=== PATIENT | female | born 1965 | race Caucasian/White ===

== ENCOUNTER 2017-08-31 11:00 | Emergency (ER) | payer OTHER ==
[2017-08-31 11:19] VITALS: BP 165/110; PULSE 73; TEMP 98.4; BMI 33.6
[2017-08-31] MEDS ORDERED: SULFAMETHOXAZOLE/TRIMETHOPRIM 800MG/160MG D.S. TABLET ONE (12:13)
[2017-08-31] MEDS ORDERED: SULFAMETHOXAZOLE/TRIMETHOPRIM 800MG/160MG D.S. TABLET PO ONE (12:18)
--- NOTE | 2017-08-31 12:38 | PDOC ---
History of Present Illness - General Chief Complaint: Abscess Boil Stated Complaint: ABSCESS BOIL Time Seen by Provider: 08/31/17 11:54 History Source: Patient Exam Limitations: No Limitations - History of Present Illness Initial Comments: 08/31/17 12:19 Onset of abscess 2 days ago which progressively worsened. Patient now with exquisitely painful lesion under her left axilla Timing/Duration: reports: getting worse Severity: Yes: moderate, severe Location: reports: other (axilla) Associated Symptoms: reports: denies symptoms Past History - Travel Traveled outside of the country in the last 30 days: No Close contact w/someone who was outside of country & ill: No - Past Medical History Allergies/Adverse Reactions: Allergies Allergy/AdvReac Type Severity Reaction Status Date / Time No Known Allergies Allergy Verified 08/31/17 11:14 Home Medications: Ambulatory Orders Duloxetine [Cymbalta] 30 mg PO HS 01/27/13 Duloxetine [Cymbalta] 60 mg PO DAILY 01/27/13 Oxycodone HCl/Acetaminophen [Percocet 5-325 mg Tablet -] 1 - 2 tab PO Q4H PRN # 7 tablet MDD 4 08/31/17 Sulfamethoxazole/Trimethoprim [Bactrim *Ds*] 1 each PO BID #14 tablet 08/31/17 COPD: No HTN: Yes Psychiatric Problems: Yes (DEPRESSION) - Surgical History Neurologic Surgery: Yes (X5 BACK SX) - Reproductive History (#): 5 Para: 3 Spontaneous : 1 - Suicide/Smoking/Psychosocial Hx Smoking Status: No Smoking History: Never smoked Number of Cigarettes Smoked Daily: 0 Information on smoking cessation initiated: No Hx Alcohol Use: No Drug/Substance Use Hx: No Substance Use Type: None Review of Systems - Review of Systems Able to Perform ROS?: Yes Is the patient limited Yi proficient: Yes Constitutional: Yes: Symptoms Reported, See HPI, Malaise Respiratory: No: Symptoms reported Integumentary: Yes: Symptoms Reported, See HPI, Erythema Neurological: No: Symptoms reported All Other Systems: Reviewed and Negative *Physical Exam - Vital Signs Last Vital Signs Temp Pulse Resp BP Pulse Ox 98.4 F 73 18 165/110 100 08/31/17 11:15 08/31/17 11:15 08/31/17 11:15 08/31/17 11:15 08/31/17 11:15 - Physical Exam General Appearance: Yes: Nourished, Appropriately Dressed, Apparent Distress, Moderate Distress HEENT: positive: JCARLOS, Normal ENT Inspection, TMs Normal, Pharynx Normal Neck: positive: Tender, Supple, Lymphadenopathy (R), Lymphadenopathy (L) Respiratory/Chest: positive: Lungs Clear, Normal Breath Sounds Gastrointestinal/Abdominal: positive: Normal Bowel Sounds, Soft. negative: Tender Extremity: positive: Normal Capillary Refill Integumentary: positive: Normal Color, Swelling. negative: Ecchymosis Neurologic: positive: manager labor delivery II-XII NML intact, Fully Oriented, Alert, Normal Mood/ Affect, Normal Response, Motor Strength 01/08 Procedures - Incision and Drainage I&D Site: Left: Axilla Betadine cleansed: Yes Anesthesia: 1% Lidocaine Blade Size: 11 Iodinated Packin/4 in Complications: none Progress Note - Progress Note Progress Note: Axillary abscess, incised and drained, started on Bactrim, culture is been sent and given #7 Percocet tablets for pain relief *DC/Admit/Observation/Transfer Diagnosis at time of Disposition: Abscess - Discharge Dispostion Disposition: HOME Condition at time of disposition: Stable Admit: No - Referrals Referrals: Kevon Leach [Primary Care Provider] - - Patient Instructions Printed Discharge Instructions: DI for Incision and Drainage of a Skin Abscess Additional Instructions: Rest, keep area elevated. Avoid strenuous activity or exercise until wound is healed Use hot soaks to area to bring more blood to the surface and encourage drainage May change dressings as needed to keep clean - trying to avoid removal of packing for 2 days. If packing needs to be changed, return to emergency department or with your followup physician for wound care and evaluation and repacking as needed If packing needs to be removed, then in 2 days, while in the shower remove dressing and quickly pull the packing taken out. Allow water from shower to wash area thoroughly for 2-3 minutes, and pat dry upon exit of shower and replace dressing. Change his dressing daily until the wound is completely healed. May use Tylenol or Motrin for mild pain relief Use stronger medications as directed and prescribed Continue all medications as prescribed Followup with private physician in 2-3 days for wound check Return to emergency Department for worsening swelling, pain, redness, fevers as needed - Post Discharge Activity Forms/Work/School Notes: Back to Work
--- NOTE | 2017-09-02 09:08 | PDOC ---
Patient Follow-up (Call Back) - Post ED Follow - Up Chief Complaint: Abscess Boil Condition at time of discharge: Stable Disposition at time of original discharge: HOME Reason for Call Back: Abnwl. Microbiology (Presumptive MRSA on wound culture. Pt. appropriately on bactrim.)
== END 2017-08-31 13:23 | disposition home or self-care (01) ==
LOC: JERFT 11:00
PROC: 0X950ZZ Drainage of Left Axilla, Open Approach (ICD-10-PCS; principal; 2017-08-31)
DX: L02.412 Cutaneous abscess of left axilla (principal)
CPT/HCPCS: 87070; 87186; 87205; 99281-25

== ENCOUNTER 2018-01-23 20:59 | Emergency (ER) | payer OTHER ==
[2018-01-23 21:03] VITALS: TEMP 97.6; BMI 33.7
--- NOTE | 2018-01-23 23:21 | PDOC ---
History of Present Illness - General Chief Complaint: Blood Pressure Problem Stated Complaint: HIGH BP/HEADACHE Time Seen by Provider: 01/23/18 23:20 Past History - Past Medical History Allergies/Adverse Reactions: Allergies Allergy/AdvReac Type Severity Reaction Status Date / Time No Known Allergies Allergy Verified 01/23/18 21:03 Home Medications: Ambulatory Orders Duloxetine [Cymbalta] 30 mg PO HS 01/27/13 Duloxetine [Cymbalta] 60 mg PO DAILY 01/27/13 Oxycodone HCl/Acetaminophen [Percocet 5-325 mg Tablet -] 1 - 2 tab PO Q4H PRN # 7 tablet MDD 4 08/31/17 Sulfamethoxazole/Trimethoprim [Bactrim *Ds*] 1 each PO BID #14 tablet 08/31/17 COPD: No HTN: Yes Psychiatric Problems: Yes (DEPRESSION) - Surgical History Neurologic Surgery: Yes (X5 BACK SX) - Reproductive History (#): 5 Para: 3 Spontaneous : 1 - Suicide/Smoking/Psychosocial Hx Smoking Status: No Smoking History: Never smoked Number of Cigarettes Smoked Daily: 0 Hx Alcohol Use: No Drug/Substance Use Hx: No Substance Use Type: None *Physical Exam - Vital Signs Last Vital Signs Temp Pulse Resp BP Pulse Ox 97.6 F 60 18 158/120 100 01/23/18 21:00 01/23/18 21:00 01/23/18 21:00 01/23/18 21:00 01/23/18 21:00 ED Treatment Course - LABORATORY CBC & Chemistry Diagram: 01/24/18 01:01 01/24/18 01:01 Medical Decision Making - Medical Decision Making 01/24/18 02:57 Ms. Blankenship is a 52 yo female w/ pmh as described who presents for evaluation of high blood pressure with headache. CBC/CMP/EKG/troponin ordered for evaluation and to r/o end organ damage. Labs grossly wnl as below. Patient reporting relief from symptoms with tylenol, norvasc, and reglan. Repeat BP decreased from 195/127 to 161 / 79. Discharging patient with instructions to f/ u with resident clinic for further bp medication / pcp establishment. Patient verbalized agreement and understanding and will comply. Laboratory Results - last 24 hr 01/24/18 01/24/18 01:01 01:01 WBC 6.3 RBC 4.88 Hgb 14.8 Hct 44.7 MCV 91.7 MCH 30.3 MCHC 33.0 RDW 13.7 Plt Count 200 D MPV 8.0 Neutrophils % 44.4 D Lymphocytes % 41.2 H D Monocytes % 7.9 Eosinophils % 5.6 H D Basophils % 0.9 Sodium 142 Potassium 4.0 Chloride 109 H Carbon Dioxide 27 Anion Gap 6 L BUN 11 Creatinine 1.0 Creat Clearance w eGFR 58.45 Random Glucose 85 Calcium 8.7 Total Bilirubin 0.4 AST 25 ALT 31 Alkaline Phosphatase 97 Creatine Kinase 132 Troponin I < 0.02 Total Protein 7.3 Albumin 3.7 01/24/18 02:59 01/24/18 02:59 *DC/Admit/Observation/Transfer Diagnosis at time of Disposition: Hypertension Qualifiers: Hypertension type: unspecified Qualified Code(s): I10 - Essential (primary) hypertension Headache Qualifiers: Headache type: unspecified Headache chronicity pattern: unspecified pattern Intractability: not intractable Qualified Code(s): R51 - Headache - Discharge Dispostion Disposition: HOME - Referrals Referrals: Iain Ríos MD [Staff Physician] - - Patient Instructions Printed Discharge Instructions: DI for High Blood Pressure Additional Instructions: Please follow-up with provided clinic at listed information today to establish care and for additional blood pressure medication for preventive care. Return to ER if any increased pain, fever, chills, or other concerning symptoms. - Post Discharge Activity
[2018-01-24] MEDS ORDERED: ACETAMINOPHEN 325 MG TABLET (FP) ONE (00:20)
[2018-01-24] MEDS ORDERED: ACETAMINOPHEN 1000 MG/100 ML VIAL (NON FORMULARY) IVPB ONE (01:10)
[2018-01-24] MEDS ORDERED: METOCLOPRAMIDE HCL INJECTION 10 MG/2 ML VIAL IVPB ONE (01:10)
[2018-01-24] MEDS ORDERED: amLODIPine BESYLATE 10 MG TABLET (FP) PO ONE (01:10)
[2018-01-24 01:20] LABS: BASO % 0.9 % (0-2.0); EOS % 5.6 % (0-4.5); HEMATOCRIT 44.7 % (32.4-45.2); HEMOGLOBIN 14.8 GM/dL (10.7-15.3); LYMPH % 41.2 % (8-40); MCH 30.3 pg (25.7-33.7); MEAN CELL VOLUME 91.7 fl (80-96); MONO % 7.9 % (3.8-10.2); NEUT % 44.4 % (42.8-82.8); PLATELET COUNT 200 K/MM3 (134-434); RBC 4.88 M/mm3 (3.60-5.2); RDW 13.7 % (11.6-15.6); WHITE BLOOD COUNT 6.3 K/mm3 (4.0-10.0)
[2018-01-24] MEDS ORDERED: amLODIPine BESYLATE 5 MG TABLET (FP) ONE (01:25)
[2018-01-24] MEDS ORDERED: METOCLOPRAMIDE HCL INJECTION 10 MG/2 ML VIAL ONE (01:25)
[2018-01-24] MEDS ORDERED: ACETAMINOPHEN INJECTION 100 ML IVPB ONE (01:26)
[2018-01-24 01:46] LABS: ALBUMIN 3.7 g/dl (3.4-5.0); ANION GAP 6 (8-16); BILIRUBIN,TOTAL 0.4 mg/dL (0.2-1.0); BLOOD UREA NITROGEN 11 mg/dL (7-18); CALCIUM 8.7 mg/dL (8.5-10.1); CHLORIDE 109 mmol/L (98-107); CO2 27 mmol/L (21-32); GLUCOSE,RANDOM 85 mg/dL (74-106); SGOT/AST 25 U/L (15-37); SGPT/ALT 31 U/L (12-78); SODIUM 142 mmol/L (136-145); TOT PROT 7.3 g/dl (6.4-8.2)
[2018-01-24 01:49] LABS: ALK PHOS 97 U/L (45-117)
[2018-01-24 02:58] VITALS: BP 161/79; PULSE 58
--- NOTE | 2018-01-24 03:18 | PDOC ---
Attending Attestation - Resident Resident Name: Anson Mckeon - ED Attending Attestation I have performed the following: I have examined & evaluated the patient, The case was reviewed & discussed with the resident, I agree w/resident's findings & plan, Exceptions are as noted - HPI HPI: 01/24/18 03:27 The patient is a 52 year old female, with a significant past medical history of hypertension (noncompliant with medication), who presents to the emergency department with global headache and associated elevated blood pressure. The patient reports her PCP referred her to another doctor who placed her on an unknown blood pressure medication which she believes was not working for her thus, she stopped taking. She reports not taking her medication for the past two days and says that she has similar headaches when her blood pressure is elevated. She describes her headache as gradual onset, wraps around her head. She denies recent fevers, chills, or dizziness. Denies focal weakness or numbness. She denies recent nausea, vomit, diarrhea or constipation. She denies recent dysuria, frequency, urgency or hematuria. She denies recent chest pain or shortness of breath. Allergies: NKA Past surgical history: None reported. Primary Care Physician: Dr. Leach - Physicial Exam PE: 01/24/18 03:27 GENERAL: Awake, alert, and fully oriented, in no acute distress HEAD: No signs of trauma EYES: PERRLA, EOMI, sclera anicteric, conjunctiva clear ENT: Auricles normal inspection, hearing grossly normal, nares patent, oropharynx clear without exudates. Moist mucosa NECK: Normal ROM, supple, no lymphadenopathy, JVD, or masses LUNGS: Breath sounds equal, clear to auscultation bilaterally. No wheezes, and no crackles HEART: Regular rate and rhythm, normal S1 and S2, no murmurs, rubs or gallops ABDOMEN: Soft, nontender, normoactive bowel sounds. No guarding, no rebound. No masses EXTREMITIES: Normal range of motion, no edema. No clubbing or cyanosis. No cords, erythema, or tenderness NEUROLOGICAL: Normal speech, cranial nerves intact, negative pronator drift, 5/ 5 strength in all 4 extremities, normal sensation to light touch in all 4 extremities, normal cerebellar exam, normal gait, normal reflexes and tone SKIN: Warm, Dry, normal turgor, no rashes or lesions noted. - Medical Decision Making 01/24/18 03:24 52-year-old female with a history of hypertension presents emergency Department with elevated blood pressure and headache after running out of her blood pressure medications. Blood pressure initially elevated with diastolic over 100. Exam completely normal, patient is neurologically intact. Patient reports that she often gets similar headaches when her blood pressure is high, reports there is no change in the severity of this headache. Labs within normal limits. Patient's blood pressure down to 160s/79 with amlodipine 10 mg. Headache is completely resolved. Discussed with patient the importance of following up today at the resident follow-up clinic. Advised the patient to call the provided referral number in the morning for a follow-up appointment today, the patient expresses understanding. Patient feels much better, is clinically stable and requests to go home. I discussed the physical exam findings, ancillary test results and final diagnoses with the patient. I answered all of the patient's questions. The patient was satisfied with the care received and felt comfortable with the discharge plan and treatment plan. The patient will call their primary care physician within 24 hours to arrange follow-up and will return to the Emergency Department with any new, persistent or worsening symptoms. Heart Score/ECG Review #1 01/24/18 03:32 Twelve-lead EKG was performed and reviewed by me. Sinus bradycardia, rate 56. Normal axis. No ST elevations. T wave inversions in leads 3, aVF, and V3-V6. When compared to EKG from June 2009, flipped T waves in V3-V6 are new. Repeat EKG stable.
--- NOTE | 2018-01-24 23:43 | EKG ---
Test Reason : Blood Pressure : / mmHG Vent. Rate : 056 BPM Atrial Rate : 056 BPM P-R Int : 160 ms QRS Dur : 074 ms QT Int : 424 ms P-R-T Axes : 022 -09 -05 degrees QTc Int : 409 ms SINUS BRADYCARDIA NONSPECIFIC T WAVE ABNORMALITY ABNORMAL ECG WHEN COMPARED WITH ECG OF 14-JUN-2009 16:20, T WAVE VARIATION Confirmed by EDELMIRA LOPEZ MD ([id number]) on 01/24/2018 11:43:04 PM Referred By: Confirmed By:EDELMIRA LOPEZ MD
== END 2018-01-24 03:13 | disposition home or self-care (01) ==
LOC: JER 20:59
PROC: 3E033GC Introduction of Other Therapeutic Substance into Peripheral Vein, Percutaneous Approach (ICD-10-PCS; principal; 2018-01-23)
PROC: 3E033NZ Introduction of Analgesics, Hypnotics, Sedatives into Peripheral Vein, Percutaneous Approach (ICD-10-PCS; 2018-01-23)
DX: I10 Essential (primary) hypertension (principal); F32.9 Major depressive disorder, single episode, unspecified; Z91.14 Patient's other noncompliance with medication regimen
CPT/HCPCS: 36415; 80053; 82550; 84484; 85025; 93005; 93010; 96374; 96375; 99281-25; J0131

== ENCOUNTER 2018-12-11 11:47 | Inpatient (IN) | payer OTHER ==
[2018-12-11 11:56] VITALS: BMI 33.5
[2018-12-11] MEDS ORDERED: SODIUM CHLORIDE 1,000 ML IV STA (12:23)
[2018-12-11] MEDS ORDERED: ONDANSETRON 4 MG/2 ML VIAL IVPUSH ONE (12:23)
--- NOTE | 2018-12-11 12:28 | PDOC ---
History of Present Illness - General Chief Complaint: Nausea/Vomiting Stated Complaint: CHEST PAIN Time Seen by Provider: 12/11/18 12:06 History Source: Patient Exam Limitations: No Limitations - History of Present Illness Initial Comments: 53 yo F h/o HTN non-compliant with meds p/w n/v and epigastric pain since this AM. She was at rest when the sx came on, pain located in epigastric region, 11/ 10 per patient, non-radiating, sharp, constant, a/w non bloody vomiting, not related to food or position. She denies eating "bad" food last night. She has not had any food in the morning. Denies fever, chills, sob, weakness, dizziness , constipation, diarrhea, recent illness. 12/11/18 12:28 zofran, IV tylenol for sx control. CBC, CMP, lipase, CXR, EKG, UA, test Past History - Past Medical History Allergies/Adverse Reactions: Allergies Allergy/AdvReac Type Severity Reaction Status Date / Time No Known Allergies Allergy Verified 12/11/18 11:56 Home Medications: Ambulatory Orders Lisinopril [Prinivil] 12.5 mg PO DAILY 12/11/18 COPD: No HTN: Yes Psychiatric Problems: Yes (DEPRESSION) - Surgical History Neurologic Surgery: Yes (X5 BACK SX) - Reproductive History (#): 5 Para: 3 Spontaneous : 1 - Suicide/Smoking/Psychosocial Hx Smoking Status: No Smoking History: Never smoked Number of Cigarettes Smoked Daily: 0 Hx Alcohol Use: No Drug/Substance Use Hx: No Substance Use Type: None Review of Systems - Review of Systems Able to Perform ROS?: Yes Is the patient limited Korean proficient: No Constitutional: Yes: Loss of Appetite. No: Chills, Fever, Weakness Respiratory: No: Cough, Shortness of Breath ABD/GI: Yes: Nausea, Poor Appetite, Vomiting. No: Diarrhea, Rectal Bleeding : No: Burning, Dysuria, Discharge, Hematuria Neurological: No: Headache *Physical Exam - Vital Signs Last Vital Signs Temp Pulse Resp BP Pulse Ox 98.2 F 111 H 20 164/106 H 100 12/11/18 11:51 12/11/18 11:51 12/11/18 11:51 12/11/18 11:51 12/11/18 11:51 - Physical Exam General Appearance: Yes: Other (uncomfortable, restless, in pain) Respiratory/Chest: positive: Lungs Clear, Normal Breath Sounds Cardiovascular: positive: Regular Rhythm, Regular Rate, S1, S2. negative: Edema , JVD, Murmur Gastrointestinal/Abdominal: positive: Normal Bowel Sounds, Tender, Flat, Soft, Decreased BS. negative: Guarding, Rebound, Hernia Musculoskeletal: negative: CVA Tenderness Neurologic: positive: route aide II-XII NML intact, Fully Oriented, Alert ED Treatment Course - LABORATORY CBC & Chemistry Diagram: 12/12/18 05:40 12/12/18 05:40 *DC/Admit/Observation/Transfer Diagnosis at time of Disposition: Acute pancreatitis Qualifiers: Pancreatitis type: unspecified pancreatitis type Acute pancreatitis complication: unspecified Qualified Code(s): K85.90 - Acute pancreatitis without necrosis or infection, unspecified - Discharge Dispostion Decision to Admit order: Yes - Referrals - Patient Instructions - Post Discharge Activity
[2018-12-11] MEDS ORDERED: ONDANSETRON 4 MG/2 ML VIAL ONE ×2 (12:42→22:49)
[2018-12-11 12:48] LABS: BASO % 0.7 % (0-2.0); EOS % 1.3 % (0-4.5); HEMATOCRIT 44.5 % (32.4-45.2); HEMOGLOBIN 14.8 GM/dL (10.7-15.3); LYMPH % 21.8 % (8-40); MCH 30.4 pg (25.7-33.7); MCHC 33.3 g/dl (32.0-36.0); MEAN CELL VOLUME 91.4 fl (80-96); MEAN PLT VOLUME 8.4 fl (7.5-11.1); MONO % 9.1 % (3.8-10.2); NEUT % 67.1 % (42.8-82.8); PLATELET COUNT 228 K/MM3 (134-434); RBC 4.87 M/mm3 (3.60-5.2); RDW 13.5 % (11.6-15.6); WHITE BLOOD COUNT 11.6 K/mm3 (4.0-10.0)
[2018-12-11] MEDS ORDERED: ACETAMINOPHEN INJECTION 100 ML IVPB ONE ×2 (13:25→20:36)
[2018-12-11] MEDS ORDERED: ACETAMINOPHEN 1000 MG/100 ML VIAL (NON FORMULARY) IVPB ONE (13:25)
[2018-12-11 13:28] LABS: LIPASE > 30000 U/L (73-393)
[2018-12-11 13:29] LABS: MAGNESIUM 2.4 mg/dL (1.8-2.4)
[2018-12-11] MEDS ORDERED: LACTATED RINGERS SOLUTION 1000 ML INFUS.BAG IV ONE (13:36)
[2018-12-11] MEDS ORDERED: morphine CARPU-JECT 4 MG/1 ML DISP.SYRIN IVPUSH ONE ×2 (13:46→16:13)
[2018-12-11] MEDS ORDERED: morphine SULFATE 4 MG/ML VIAL ONE ×4 (13:47→21:40)
[2018-12-11 14:19] LABS: ALBUMIN 3.6 g/dl (3.4-5.0); ALK PHOS 129 U/L (45-117); ANION GAP 10 MMOL/L (8-16); BILIRUBIN,TOTAL 1.8 mg/dL (0.2-1); BLOOD UREA NITROGEN 13 mg/dL (7-18); CALCIUM 8.9 mg/dL (8.5-10.1); CHLORIDE 110 mmol/L (98-107); CO2 23 mmol/L (21-32); CREATININE 1.3 mg/dL (0.55-1.3); GLUCOSE,RANDOM 92 mg/dL (74-106); POTASSIUM 3.5 mmol/L (3.5-5.1); SGOT/AST 368 U/L (15-37); SGPT/ALT 361 U/L (13-61); SODIUM 144 mmol/L (136-145)
[2018-12-11 14:40] LABS: HCG,QUALITATIVE URINE Negative
--- NOTE | 2018-12-11 14:43 | PDOC ---
Attending Attestation - Resident Resident Name: Terry Varner - ED Attending Attestation I have performed the following: I have examined & evaluated the patient, The case was reviewed & discussed with the resident, I agree w/resident's findings & plan, Exceptions are as noted - HPI HPI: 12/11/18 14:39 The patient is a 53-year-old female, with a past medical history of HTN and depression, who presents to the ED with sudden onset of epigastric pain, nausea , and vomiting this morning. She describes the pain as sharp in sensation, nonpleuritic, nonradiating. She reports multiple episodes of nonbloody, nonbilious emesis. Patient denies eating any new foods and has not had breakfast today. She denies any history of gallstones. Denies etoh, new medications. The patient denies any fevers, chills, diarrhea, or constipation. Denies any chest pain or shortness of breath. Allergies: NKA Social History: Denies any tobacco, alcohol, or drug use. Surgical History: None reported. PCP: Dr. Ashlie Kiran - Physicial Exam PE: 12/11/18 14:47 GENERAL: Awake, alert, and fully oriented, appears uncomfortable holding bag with yellow emesis EYES: PERRLA, EOMI, sclera anicteric, conjunctiva clear ENT: dry MM NECK: supple LUNGS: Breath sounds equal, clear to auscultation bilaterally. No wheezes, and no crackles HEART: Regular rate and rhythm, normal S1 and S2, no murmurs, rubs or gallops ABDOMEN: Soft, +epigastric ttp, no RUQ ttp or murphys sign. No rebound or guarding EXTREMITIES: Normal range of motion, no edema. No cords, erythema, or tenderness NEUROLOGICAL: Normal speech, cranial nerves intact, equal strength and sensation b/l SKIN: Warm, Dry, normal turgor, no rashes or lesions noted. - Medical Decision Making 12/11/18 14:56 53yo F hx HTN presents to the ED with epigastric pain, N/V. Lipase found to be > [id number]. No new meds, recent etoh. Plan for RUQ US to eval for gallstone panc, possible CTAP, sx control, admit 12/11/18 15:41 LFTs mildly bumped RUQ US with mild GB wall thickening, small amount sludge, borderline CBD dilation - possible gallstone panc Case discussed with GI boot and saddle repair person Dr. Young who recommends CTAP with IV contrast. If necrotizing pancreatitis, pt needs transfer. If not, pt can be admitted here for eventual ERCP Pain better controlled with morphine, will continue IVF 12/11/18 16:04 CTAP with IV contrast w/o necrotizing panc Plan to admit pt at this pt Heart Score/ECG Review #1 12/11/18 14:57 Twelve-lead EKG was performed and reviewed by me. Normal sinus rhythm, rate 99. Normal axis. No ST elevations. T wave inversions in 3, aVF, V3 to V4. When compared to EKG from Jan 24 2018, no significant change.
[2018-12-11 15:17] LABS: URINE APPEARANCE CLEAR; URINE BILIRUBIN NEGATIVE (NEGATIVE); URINE COLOR YELLOW; URINE GLUCOSE (UA) NEGATIVE (NEGATIVE); URINE KETONE NEGATIVE (NEGATIVE); URINE LEUK ESTERASE NEGATIVE (NEGATIVE); URINE NITRITE NEGATIVE (NEGATIVE); URINE PROTEIN NEGATIVE (NEGATIVE)
[2018-12-11] MEDS ORDERED: LACTATED RINGERS SOLUTION 1,000 ML/1,000 ML INFUS.BAG IV SCH (15:45)
[2018-12-11] MEDS: LACTATED RINGERS SOLUTION 1,000 ML/1,000 ML INFUS.BAG IV SCH ×2 (16:04→20:50)
[2018-12-11] MEDS ORDERED: LABETALOL HCL 5 MG/1 ML (100MG/20 ML VIAL) IVPUSH ONE (16:20)
[2018-12-11] MEDS ORDERED: LACTATED RINGERS SOLUTION 1,000 ML IV STA (16:54)
[2018-12-11] MEDS ORDERED: ONDANSETRON 4 MG/2 ML VIAL IVPUSH PRN (16:58)
--- NOTE | 2018-12-11 17:03 | PN ---
Teaching Attending Note Name of Resident: Cortez Worthy ATTENDING PHYSICIAN STATEMENT I saw and evaluated the patient. I reviewed the resident's note and discussed the case with the resident. I agree with the resident's findings and plan as documented. SUBJECTIVE:53yo F with PMH HTN presented to the ER with epigastric pain that started suddenly this morning. assoc with nausea and vomiting. no previous episodes in the past. no new medications. denies CP, SOB, fever, chills, denies excessive ETOH use OBJECTIVE: Last Vital Signs Temp Pulse Resp BP Pulse Ox 97.8 F 54 L 18 160/83 99 12/11/18 16:00 12/11/18 16:00 12/11/18 16:00 12/11/18 16:00 12/11/18 16:00 General mild distress due to pain CV S1 S2 RRR no murmur/rub/gallop Lungs CTA B/L no wheezing/rales/rhonchi Abdomen soft +RUQ and epigastric tenderness no rebound or guarding ASSESSMENT AND PLAN: 53yo F with PMH HTN presented to the ER with epigastric pain and found to have acute gallstone pancreatitis 1. Acute gallstone pancreatitis- admit to medicine. low bisap score CT done with no signs of necrotizing pancreatitis. received 2L in the ER, will give 1L LR and then cont at 250cc/h. NPO with pain and nausea control. will need MRCP to r/o retained stone and then cholecystectomy on this admission. GI and surgery consults 2. Transaminitis- due to possible retained stone. slightly dilated CBD seen on imaging. will liekly require ERCP. check hepatitis panel. trend LFT 3. HTN-uncontrolled likely due to pain. resume home medications. will titrate if necessary to optimize control 4. DVT ppx- lovenox
--- NOTE | 2018-12-11 17:16 | HP ---
CHIEF COMPLAINT: PCP: Dr. Ashlie Kiran HISTORY OF PRESENT ILLNESS: 53 yo F, PMH HTN and depression, p/w sudden onset of epigastric pain, n/v x1d. She describes the pain as sharp in sensation, nonpleuritic, nonradiating. She reports multiple episodes of nonbloody, nonbilious emesis. Patient denies eating any new foods and has not had breakfast today. She denies any history of gallstones. Denies etoh, new medications. The patient denies any fevers, chills, diarrhea, or constipation. Denies any chest pain or shortness of breath. denies any recent illnesses ER course was notable for: (1) Lipase >18898, abd U/S and CT A/P +pancreatitis (2) NS 1L, LR 1L, 4mg morphine X2, zofran, ofirmev (3) EKG: NSR, rate 99. Normal axis. No ST elevations. T wave inversions in 3, aVF, V3 to V4. Qtc 479. When compared to EKG from Jan 24 2018, no significant change. trop neg x1 Recent Travel: denies PAST MEDICAL HISTORY: PAST SURGICAL HISTORY: Social History: Smoking: denies Alcohol:denies Drugs: denies Family History: Allergies No Known Allergies Allergy (Verified 12/11/18 11:56) HOME MEDICATIONS: Home Medications Medication Instructions Recorded Lisinopril [Prinivil] 12.5 mg PO DAILY 12/11/18 REVIEW OF SYSTEMS as per hpi PHYSICAL EXAMINATION Vital Signs - 24 hr 12/11/18 12/11/18 11:51 16:00 Temperature 98.2 F 97.8 F Pulse Rate 111 H Pulse Rate [ 54 L Apical] Respiratory 20 18 Rate Blood Pressure 164/106 H Blood Pressure 160/83 [Left Arm] O2 Sat by Pulse 100 99 Oximetry (%) GENERAL: Awake, alert, and fully oriented, in mild acute distress. HEAD: Normal with no signs of trauma. EYES: sclera anicteric, conjunctiva clear. No lid lag. EARS, NOSE, THROAT: nares patent, oropharynx clear without exudates. Moist mucous membranes. NECK: Normal range of motion, supple without lymphadenopathy, JVD, or masses. LUNGS: CTAB HEART: RRR, normal S1 and S2 without murmur, rub or gallop. ABDOMEN: Soft, TTP epigastrum, RUQ, not distended, normoactive bowel sounds, no guarding, no rebound, no masses. MUSCULOSKELETAL: Normal range of motion at all joints. No bony deformities or tenderness. UPPER EXTREMITIES: 2+ pulses, warm, well-perfused. No cyanosis. No clubbing. No peripheral edema. LOWER EXTREMITIES: 2+ pulses, warm, well-perfused. No calf tenderness. No peripheral edema. NEUROLOGICAL: sensation strength grossly intact. Normal speech. PSYCHIATRIC: Cooperative. Good eye contact. Appropriate mood and affect. SKIN: Warm, dry, normal turgor, no rashes or lesions noted, normal capillary refill. Laboratory Results - last 24 hr 12/11/18 12/11/18 12/11/18 12:26 12:30 12:30 WBC 11.6 H RBC 4.87 Hgb 14.8 Hct 44.5 MCV 91.4 MCH 30.4 MCHC 33.3 RDW 13.5 Plt Count 228 MPV 8.4 Absolute Neuts (auto) 7.8 Neutrophils % 67.1 D Lymphocytes % 21.8 D Monocytes % 9.1 Eosinophils % 1.3 Basophils % 0.7 Nucleated RBC % 0 Sodium Cancelled Potassium Cancelled Chloride Cancelled Carbon Dioxide Cancelled Anion Gap Cancelled BUN Cancelled Creatinine Cancelled Creat Clearance w eGFR Cancelled Random Glucose Cancelled Calcium Cancelled Magnesium Total Bilirubin Cancelled AST Cancelled ALT Cancelled Alkaline Phosphatase Cancelled Troponin I Total Protein Cancelled Albumin Cancelled Lipase Urine Color Yellow Urine Appearance Clear Urine pH 8.0 Ur Specific [place] 1.007 L Urine Protein Negative Urine Glucose (UA) Negative Urine Ketones Negative Urine Blood Negative Urine Nitrite Negative Urine Bilirubin Negative Urine Urobilinogen 1.0 Ur Leukocyte Esterase Negative Urine HCG, Qual Negative 12/11/18 12/11/18 12:30 13:41 WBC RBC Hgb Hct MCV MCH MCHC RDW Plt Count MPV Absolute Neuts (auto) Neutrophils % Lymphocytes % Monocytes % Eosinophils % Basophils % Nucleated RBC % Sodium 144 Potassium 3.5 Chloride 110 H Carbon Dioxide 23 Anion Gap 10 BUN 13 Creatinine 1.3 Creat Clearance w eGFR 43.01 Random Glucose 92 Calcium 8.9 Magnesium 2.4 Total Bilirubin 1.8 H AST 368 H ALT 361 H Alkaline Phosphatase 129 H Troponin I < 0.02 Total Protein 7.0 Albumin 3.6 Lipase > 22051 H Urine Color Urine Appearance Urine pH Ur Specific [place] Urine Protein Urine Glucose (UA) Urine Ketones Urine Blood Urine Nitrite Urine Bilirubin Urine Urobilinogen Ur Leukocyte Esterase Urine HCG, Qual ASSESSMENT/PLAN: 53 yo F, PMH HTN and depression, p/w sudden onset of epigastric pain, n/v x1d. Found w/ Lipase >78752, elevated bili and transaminitis on labs and + pancreatitis on CTA/P Acute Gallstone pancreatitis - +leukocytosis, Lipase >59338, elevated bili and transaminitis on labs and +pancreatitis on CTA/P s/p NS 1L, LR 1L, 4mg morphine X2, zofran, ofirmev in ED CT with no signs of necrotizing pancreatitis. NPO LR 250cc LR bolus stat GI consult (Antonio) for ERCP Surgery consult (Bradly) for lap dami when pt more stable pain ctl: IV morphine nausea ctl w/ zofran. Qtc 479, will monitor w/ rpt EKG in AM Transaminitis- due to possible retained stone. slightly dilated CBD seen on imaging. will likely require ERCP. check hepatitis panel. trend LFTs HTN-uncontrolled likely 2/2 pain. resume home medications. will titrate if necessary to optimize control FEN LR 250cc w/ LR bolus stat replete prn NPO DVT Lovenox 40 sq Dispo m/s will likely require lap dami for this admission for Acute gallstone pancreatitis and ERCP prior to surgery Visit type - Emergency Visit Emergency Visit: Yes ED Registration Date: 12/11/18 Care time: The patient presented to the Emergency Department on the above date and was hospitalized for further evaluation of their emergent condition. - New Patient This patient is new to me today: Yes Date on this admission: 12/11/18 - Critical Care Critical Care patient: No
[2018-12-11] MEDS ORDERED: ENOXAPARIN NA (PORCINE) 40 MG/0.4 ML DISP.SYRIN SQ ONE (17:31)
[2018-12-11] MEDS: ENOXAPARIN NA (PORCINE) 40 MG/0.4 ML DISP.SYRIN SQ SCH (17:40)
--- NOTE | 2018-12-11 17:54 | EKG ---
Test Reason : Blood Pressure : / mmHG Vent. Rate : 099 BPM Atrial Rate : 099 BPM P-R Int : 170 ms QRS Dur : 074 ms QT Int : 374 ms P-R-T Axes : 046 -19 014 degrees QTc Int : 479 ms NORMAL SINUS RHYTHM POSSIBLE LEFT ATRIAL ENLARGEMENT NONSPECIFIC T WAVE ABNORMALITY PROLONGED QT ABNORMAL ECG WHEN COMPARED WITH ECG OF 24-JAN-2018 00:59, VENT. RATE HAS INCREASED BY 43 BPM QT HAS LENGTHENED Confirmed by CHERELLE CALZADA MD ([id number]) on 12/11/2018 5:54:05 PM Referred By: Confirmed By:CHERELLE CALZADA MD
[2018-12-11 18:58] LABS: CHOLESTEROL 193 mg/dL (50-200); HDL CHOLESTEROL 56 mg/dL (40-60); TRIGLYCERIDES 144 mg/dL (0-150)
[2018-12-11] MEDS: LISINOPRIL 5 MG TABLET (FP) PO SCH (19:45)
[2018-12-11] MEDS: ACETAMINOPHEN 1000 MG/100 ML VIAL (NON FORMULARY) IVPB PRN (21:40)
[2018-12-11] MEDS: MORPHINE SULFATE 2 MG/ML VIAL IVPUSH PRN (23:05)
[2018-12-12] MEDS: LACTATED RINGERS SOLUTION 1,000 ML/1,000 ML INFUS.BAG IV SCH ×4 (01:05→20:21)
[2018-12-12] MEDS ORDERED: morphine SULFATE 4 MG/ML VIAL ONE ×2 (02:18→06:01)
[2018-12-12] MEDS: MORPHINE SULFATE 2 MG/ML VIAL IVPUSH PRN ×4 (02:29→20:23)
[2018-12-12 06:11] LABS: BASO % 0.3 % (0-2.0); HEMATOCRIT 44.9 % (32.4-45.2); HEMOGLOBIN 14.8 GM/dL (10.7-15.3); LYMPH % 7.7 % (8-40); MCH 30.2 pg (25.7-33.7); MEAN CELL VOLUME 91.7 fl (80-96); MEAN PLT VOLUME 8.5 fl (7.5-11.1); PLATELET COUNT 197 K/MM3 (134-434); RDW 13.6 % (11.6-15.6); WHITE BLOOD COUNT 11.6 K/mm3 (4.0-10.0)
[2018-12-12 06:39] LABS: ALBUMIN 3.3 g/dl (3.4-5.0); ALK PHOS 121 U/L (45-117); ANION GAP 5 MMOL/L (8-16); BILIRUBIN,TOTAL 1.3 mg/dL (0.2-1); BLOOD UREA NITROGEN 9 mg/dL (7-18); CALCIUM 8.8 mg/dL (8.5-10.1); CHLORIDE 104 mmol/L (98-107); CO2 27 mmol/L (21-32); CREATININE 0.9 mg/dL (0.55-1.3); GLUCOSE,RANDOM 105 mg/dL (74-106); MAGNESIUM 1.9 mg/dL (1.8-2.4); PHOSPHOROUS 4.1 mg/dL (2.5-4.9); POTASSIUM 3.9 mmol/L (3.5-5.1); SGOT/AST 174 U/L (15-37); SGPT/ALT 274 U/L (13-61); SODIUM 137 mmol/L (136-145); TOT PROT 6.7 g/dl (6.4-8.2)
[2018-12-12] MEDS ORDERED: ACETAMINOPHEN INJECTION 100 ML IVPB ONE (08:29)
[2018-12-12] MEDS ORDERED: PROCHLORPERAZINE INJECTION 10 MG/2 ML VIAL IVPB PRN (08:33)
[2018-12-12] MEDS: LISINOPRIL 5 MG TABLET (FP) PO SCH (09:18)
[2018-12-12] MEDS: ACETAMINOPHEN 1000 MG/100 ML VIAL (NON FORMULARY) IVPB PRN ×2 (09:18→16:23)
[2018-12-12] MEDS: ENOXAPARIN NA (PORCINE) 40 MG/0.4 ML DISP.SYRIN SQ SCH (10:07)
--- NOTE | 2018-12-12 12:19 | CONSULT ---
- Consultation REQUESTING PROVIDER: CONSULT REQUEST: We have been asked to surgically evaluate this patient for ( specify). PCP:Lauren Pereira HISTORY OF PRESENT ILLNESS: 53 y/o female presented with two days of epigastric pain with N/V. Does not recall what she was eating prior to this. does not radiate to back. Pain became increasingly severe so came to the [facility] for evaluation. No fever/chills, no jaundice, no dark urine/light stool. Has never had this happen before. Denies any ETOH use. Denies FFI per se and any other GI//[employer] c/o. PMHx: HTN PSHx: none Home Medications Medication Instructions Recorded Lisinopril [Prinivil] 12.5 mg PO DAILY 12/11/18 Allergies Allergy/AdvReac Type Severity Reaction Status Date / Time No Known Allergies Allergy Verified 12/11/18 11:56 REVIEW OF SYSTEMS: CONSTITUTIONAL: Absent: fever, chills, diaphoresis, generalized weakness, malaise, loss of appetite, weight change CARDIOVASCULAR: Absent: chest pain, syncope, palpitations, irregular heart rate, lightheadedness , peripheral edema RESPIRATORY: Absent: cough, shortness of breath, dyspnea with exertion, wheezing, stridor, hemoptysis GASTROINTESTINAL: Absent: abdominal pain, abdominal distension, nausea, vomiting, diarrhea, constipation, melena, hematochezia GENITOURINARY: Absent: dysuria, frequency, urgency, hesitancy, hematuria, flank pain, genital pain MUSCULOSKELETAL: Absent: myalgia, arthralgia, joint swelling, back pain, neck pain SKIN: Absent: rash, itching, pallor HEMATOLOGIC/IMMUNOLOGIC: Absent: easy bleeding, easy bruising, lymphadenopathy NEUROLOGIC: Absent: headache, focal weakness, paresthesias, dizziness, unsteady gait, seizure, mental status changes, bladder or bowel incontinence PSYCHIATRIC: Absent: anxiety, depression, suicidal or homicidal ideation, hallucinations. PHYSICAL EXAM: GENERAL: Awake, alert, and fully oriented, in no acute distress. HEAD: Normal with no signs of trauma. EYES: sclera anicteric, conjunctiva clear. NECK: Normal ROM, supple without lymphadenopathy, JVD, or masses. ABDOMEN: Soft, tender to palpation in the epigastrium, not distended, normoactive bowel sounds, some voluntary guarding, no rebound, no masses. No organomegaly. No hernias. MUSCULOSKELETAL: Normal ROM at all joints. No bony deformities or tenderness. No CVA tenderness. UPPER EXTREMITIES: 2+ pulses, warm, well-perfused. No cyanosis. Cap refill <2 seconds. No peripheral edema. LOWER EXTREMITIES: 2+ pulses, warm, well-perfused. No calf tenderness. No peripheral edema. NEUROLOGICAL: Normal speech, gait not observed. PSYCH: Cooperative. Good eye contact. Appropriate mood and affect. SKIN: Warm, dry, normal turgor, no rashes or lesions noted. Vital Signs Temperature 99.3 F 12/12/18 10:49 Pulse Rate 78 12/12/18 10:49 Respiratory Rate 18 12/12/18 10:49 Blood Pressure 157/95 12/12/18 10:49 O2 Sat by Pulse Oximetry (%) 94 L 12/12/18 10:49 Lab Results WBC 11.6 K/mm3 (4.0-10.0) H 12/12/18 05:40 RBC 4.90 M/mm3 (3.60-5.2) 12/12/18 05:40 Hgb 14.8 GM/dL (10.7-15.3) 12/12/18 05:40 Hct 44.9 % (32.4-45.2) 12/12/18 05:40 MCV 91.7 fl (80-96) 12/12/18 05:40 MCHC 33.0 g/dl (32.0-36.0) 12/12/18 05:40 RDW 13.6 % (11.6-15.6) 12/12/18 05:40 Plt Count 197 K/MM3 (134-434) 12/12/18 05:40 Sodium 137 mmol/L (136-145) 12/12/18 05:40 Potassium 3.9 mmol/L (3.5-5.1) 12/12/18 05:40 Chloride 104 mmol/L (98-107) 12/12/18 05:40 Carbon Dioxide 27 mmol/L (21-32) 12/12/18 05:40 Anion Gap 5 MMOL/L (8-16) L 12/12/18 05:40 BUN 9 mg/dL (7-18) 12/12/18 05:40 Creatinine 0.9 mg/dL (0.55-1.3) 12/12/18 05:40 Random Glucose 105 mg/dL (74-106) 12/12/18 05:40 Calcium 8.8 mg/dL (8.5-10.1) 12/12/18 05:40 IMP: gallstone pancreatitis/gallbladder sludge and polyps; ?? medication induced pancreatitis ?? PLAN: NPO/IVF/MRCP; GI evaluation has been done; +/-ERCP and related procedures pending clinical course and results of MRCP and lap dami possible open; trend LFT's and amylase; will f/u. Surinder Abdullahi MD FACS
--- NOTE | 2018-12-12 12:26 | PN ---
Physical Exam: SUBJECTIVE: Patient seen and examined. Still c/o of pain. Had received pain meds earlier. OBJECTIVE: Vital Signs Period Temp Pulse Resp BP Sys/Kellogg Pulse Ox Last 24 Hr 97.8 F-99.3 F 54-81 17-18 137-162/83-98 90-99 Vital Signs Temp 99.3 F 12/12/18 10:49 Pulse 78 12/12/18 10:49 Resp 18 12/12/18 10:49 BP 157/95 12/12/18 10:49 Pulse Ox 94 L 12/12/18 10:49 Intake & Output 12/11/18 12/12/18 12/12/18 23:59 11:59 23:59 Weight 88.451 kg Other: Voiding Method Toilet Height 1.63 m Body Mass Index (BMI) 33.5 Weight Measurement Method Stated by Patient GENERAL: The patient is awake, alert, in mild painful distress. HEAD: Normal with no signs of trauma. EYES: PERRL, extraocular movements intact, ENT: Dry mucous membranes. NECK: supple. LUNGS: Breath sounds equal, clear to auscultation bilaterally, no wheezes, no crackles HEART: Regular rate and rhythm, S1, S2 ABDOMEN: Soft, tenderness epigastrium >LUQ, nondistended, hypoactive bowel sounds EXTREMITIES: 2+ pulses, warm, well-perfused, no edema. NEUROLOGICAL: Cranial nerves II through XII grossly intact. Normal speech, gait not observed. CBC, BMP 12/12/18 05:40 12/12/18 05:40 Laboratory Results - last 24 hr 12/11/18 12/11/18 12/11/18 12:26 12:30 12:30 WBC 11.6 H RBC 4.87 Hgb 14.8 Hct 44.5 MCV 91.4 MCH 30.4 MCHC 33.3 RDW 13.5 Plt Count 228 MPV 8.4 Absolute Neuts (auto) 7.8 Neutrophils % 67.1 D Lymphocytes % 21.8 D Monocytes % 9.1 Eosinophils % 1.3 Basophils % 0.7 Nucleated RBC % 0 Sodium Cancelled Potassium Cancelled Chloride Cancelled Carbon Dioxide Cancelled Anion Gap Cancelled BUN Cancelled Creatinine Cancelled Creat Clearance w eGFR Cancelled Random Glucose Cancelled Calcium Cancelled Phosphorus Magnesium Total Bilirubin Cancelled AST Cancelled ALT Cancelled Alkaline Phosphatase Cancelled Troponin I C-Reactive Protein Total Protein Cancelled Albumin Cancelled Triglycerides Cholesterol Total LDL Cholesterol HDL Cholesterol Lipase Urine Color Yellow Urine Appearance Clear Urine pH 8.0 Ur Specific [place] 1.007 L Urine Protein Negative Urine Glucose (UA) Negative Urine Ketones Negative Urine Blood Negative Urine Nitrite Negative Urine Bilirubin Negative Urine Urobilinogen 1.0 Ur Leukocyte Esterase Negative Urine HCG, Qual Negative 12/11/18 12/11/18 12/12/18 12:30 13:41 05:40 WBC 11.6 H RBC 4.90 Hgb 14.8 Hct 44.9 MCV 91.7 MCH 30.2 MCHC 33.0 RDW 13.6 Plt Count 197 MPV 8.5 Absolute Neuts (auto) 10.0 H Neutrophils % 86.0 H D Lymphocytes % 7.7 L D Monocytes % 6.0 Eosinophils % 0.0 D Basophils % 0.3 Nucleated RBC % 0 Sodium 144 Potassium 3.5 Chloride 110 H Carbon Dioxide 23 Anion Gap 10 BUN 13 Creatinine 1.3 Creat Clearance w eGFR 43.01 Random Glucose 92 Calcium 8.9 Phosphorus Magnesium 2.4 Total Bilirubin 1.8 H AST 368 H ALT 361 H Alkaline Phosphatase 129 H Troponin I < 0.02 C-Reactive Protein Total Protein 7.0 Albumin 3.6 Triglycerides 144 Cholesterol 193 Total LDL Cholesterol 118 H HDL Cholesterol 56 Lipase > 35071 H Urine Color Urine Appearance Urine pH Ur Specific [place] Urine Protein Urine Glucose (UA) Urine Ketones Urine Blood Urine Nitrite Urine Bilirubin Urine Urobilinogen Ur Leukocyte Esterase Urine HCG, Qual 12/12/18 12/12/18 05:40 05:40 WBC RBC Hgb Hct MCV MCH MCHC RDW Plt Count MPV Absolute Neuts (auto) Neutrophils % Lymphocytes % Monocytes % Eosinophils % Basophils % Nucleated RBC % Sodium 137 Potassium 3.9 Chloride 104 Carbon Dioxide 27 Anion Gap 5 L BUN 9 Creatinine 0.9 Creat Clearance w eGFR 65.75 Random Glucose 105 Calcium 8.8 Phosphorus 4.1 Magnesium 1.9 Total Bilirubin 1.3 H AST 174 H ALT 274 H Alkaline Phosphatase 121 H Troponin I C-Reactive Protein 3.7 H Cancelled Total Protein 6.7 Albumin 3.3 L Triglycerides Cholesterol Total LDL Cholesterol HDL Cholesterol Lipase Urine Color Urine Appearance Urine pH Ur Specific [place] Urine Protein Urine Glucose (UA) Urine Ketones Urine Blood Urine Nitrite Urine Bilirubin Urine Urobilinogen Ur Leukocyte Esterase Urine HCG, Qual Active Medications Generic Name Dose Route Start Last Admin Trade Name Freq PRN Reason Stop Dose Admin Acetaminophen 1,000 mg 12/11/18 19:43 12/12/18 09:18 Ofirmev Injection - IVPB 1,000 mg Q6H PRN Administration PAIN Enoxaparin Sodium 40 mg 12/11/18 17:00 12/12/18 10:07 Lovenox - SQ Not Given DAILY PARESH Lactated Ringer's 1,000 ml in 1,000 mls @ 250 mls/hr 12/11/18 15:30 12/12/18 06:27 Lactated Ringers Solution IV 250 mls/hr ASDIR PARESH Administration Lisinopril 12.5 mg 12/11/18 17:30 12/12/18 09:18 Prinivil PO 12.5 mg DAILY PARESH Administration Morphine Sulfate 4 mg 12/11/18 16:54 12/12/18 11:09 Morphine Sulfate IVPUSH 4 mg Q4H PRN Administration PAIN LEVEL 6-10 Ondansetron HCl 4 mg 12/11/18 16:58 12/11/18 22:55 Zofran Injection IVPUSH 4 mg Q6H PRN Administration NAUSEA Prochlorperazine Edisylate 5 mg 12/12/18 08:33 Compazine Injection - IVPB Q4H PRN NAUSEA AND/OR VOMITING ASSESSMENT/PLAN: 53 yo F, PMH HTN and depression, p/w sudden onset of epigastric pain, n/v x1d. Found w/ Lipase >88777, elevated bili and transaminitis on labs and + pancreatitis on CTA/P Acute Gallstone pancreatitis - +leukocytosis, Lipase >09040, elevated bili and transaminitis on labs and +pancreatitis on CTA/P s/p NS 1L, LR 1L, 4mg morphine X2, zofran, ofirmev in ED CT with no signs of necrotizing pancreatitis. NPO Cont LR 250cc GI consult (Antonio) for ERCP Surgery consult (Bradly) for lap dami when pt more stable pain ctl: IV morphine nausea - received zofran. Qtc 479,Zofran stopped, compazine started Transaminitis- due to possible retained stone. slightly dilated CBD seen on imaging. will likely require ERCP. Follow hepatitis panel. trend LFTs HTN- resume home medications. will titrate if necessary to optimize control FEN LR 250cc w/ LR bolus stat replete prn NPO DVT Lovenox 40 sq Dispo m/s will likely require lap dami for this admission for Acute gallstone pancreatitis and ERCP prior to surgery Visit type - Emergency Visit Emergency Visit: Yes ED Registration Date: 12/11/18 Care time: The patient presented to the Emergency Department on the above date and was hospitalized for further evaluation of their emergent condition. - New Patient This patient is new to me today: Yes Date on this admission: 12/12/18 - Critical Care Critical Care patient: No - Discharge Referral Referred to [facility] Med P.C.: No
--- NOTE | 2018-12-12 13:36 | CON.GI ---
Consult Consult Specialty:: GI Referred by:: Medicine Reason for Consultation:: Pancreatitis - History of Present Illness Chief Complaint: epigastric pain History of Present Illness: 53F with h/o HTN (on lisinopril-HCTZ) presenting for two days of epigastric pain with N/V. Does not recall what she was eating prior to this. does not radiate to back. Pain became increasingly severe so came to ED to assess. No fever/chills, no jaundice, no dark urine/light stool. Has never had this happen before. Denies any ETOH use. +FHx gallstones in mother who had cholecystectomy. - History Source History Provided By: Patient Limitations to Obtaining History: No Limitations - Past Medical History Cardio/Vascular: Yes: HTN ...LMP: 01/04/13 - Past Surgical History Past Surgical History: Yes: None - Alcohol/Substance Use Hx Alcohol Use: No - Smoking History Smoking history: Never smoked Aproximately how many cigarettes per day: 0 Home Medications - Allergies Allergies/Adverse Reactions: Allergies Allergy/AdvReac Type Severity Reaction Status Date / Time No Known Allergies Allergy Verified 12/11/18 11:56 - Home Medications Home Medications: Ambulatory Orders Lisinopril [Prinivil] 12.5 mg PO DAILY 12/11/18 Albuterol Sulfate Inhaler - [Ventolin HFA Inhaler -] 2 puff PO Q6H PRN 12/12/18 Lisinopril/Hydrochlorothiazide [Zestoretic 10-12.5 mg Tablet] 1 each PO DAILY Review of Systems - Review of Systems Constitutional: reports: No Symptoms Eyes: reports: No Symptoms HENT: reports: No Symptoms Cardiovascular: reports: No Symptoms Respiratory: reports: No Symptoms Gastrointestinal: reports: Abdominal Pain, Nausea, Vomiting Musculoskeletal: reports: No Symptoms Integumentary: reports: No Symptoms Neurological: reports: No Symptoms Endocrine: reports: No Symptoms Hematology/Lymphatic: reports: No Symptoms Psychiatric: reports: No Symptoms Physical Exam-GI Vital Signs: Vital Signs Temperature 99.3 F 12/12/18 10:49 Pulse Rate 78 12/12/18 10:49 Respiratory Rate 18 12/12/18 10:49 Blood Pressure 157/95 12/12/18 10:49 O2 Sat by Pulse Oximetry (%) 94 L 12/12/18 10:49 Constitutional: Yes: Well Nourished, Moderate Distress Eyes: Yes: Conjunctiva Clear HENT: Yes: Atraumatic, Normocephalic Cardiovascular: Yes: Regular Rate and Rhythm Respiratory: Yes: Regular, CTA Bilaterally ...Palpate: Yes: Soft, Tenderness, Epigastium (with voluntary guarding, no rebound) ...Rectal Exam: Yes: Deferred Musculoskeletal: Yes: WNL Edema: No Integumentary: Yes: WNL Neurological: Yes: Alert, Oriented Psychiatric: Yes: Alert, Oriented Labs: CBC, BMP 12/12/18 05:40 12/12/18 05:40 Hepatic Panel Total Bilirubin 1.3 mg/dL (0.2-1) H 12/12/18 05:40 AST 174 U/L (15-37) H 12/12/18 05:40 ALT 274 U/L (13-61) H 12/12/18 05:40 Alkaline Phosphatase 121 U/L (45-117) H 12/12/18 05:40 Albumin 3.3 g/dl (3.4-5.0) L 12/12/18 05:40 Lipase 30K Imaging - Results Cat Scan: Report Reviewed Ultrasound: Report Reviewed (US with CBD 6mm, distended gallbladder with some sludge and polyps) Assessment/Plan Pancreatitis - likely gallstone pancreatitis, less likely medication (HCTZ) - will get MRCP to further assess for biliary obstruction - if positive, would need ERCP - trend LFTs daily - NPO - LR at 250cc/hr - pain control - surgery to see for eventual cholecystectomy
--- NOTE | 2018-12-12 15:19 | EKG ---
Test Reason : Blood Pressure : / mmHG Vent. Rate : 080 BPM Atrial Rate : 080 BPM P-R Int : 152 ms QRS Dur : 084 ms QT Int : 372 ms P-R-T Axes : 044 -11 -13 degrees QTc Int : 429 ms NORMAL SINUS RHYTHM NONSPECIFIC T WAVE ABNORMALITY ABNORMAL ECG WHEN COMPARED WITH ECG OF 11-DEC-2018 11:43, VENT. RATE HAS DECREASED Confirmed by EDELMIRA LOPEZ MD ([id number]) on 12/12/2018 3:19:40 PM Referred By: Confirmed By:EDELMIRA LOPEZ MD
--- NOTE | 2018-12-12 15:30 | PN ---
Teaching Attending Note Name of Resident: Patience Serrato ATTENDING PHYSICIAN STATEMENT I saw and evaluated the patient. I reviewed the resident's note and discussed the case with the resident. I agree with the resident's findings and plan as documented. SUBJECTIVE:continues to have significant epigastric pain. +nausea but no vomiting. denies CP, SOB, fever, chills, C/D OBJECTIVE: Last Vital Signs Temp Pulse Resp BP Pulse Ox 99.7 F H 85 20 179/94 H 94 L 12/12/18 14:00 12/12/18 14:00 12/12/18 14:12/12/18 14:00 12/12/18 10:49 General mild distress due to pain CV S1 S2 RRR no murmur/rub/gallop Lungs CTA B/L no wheezing/rales/rhonchi Abdomen soft +RUQ and epigastric tenderness no rebound or guarding ASSESSMENT AND PLAN: 53yo F with PMH HTN presented to the ER with epigastric pain and found to have acute gallstone pancreatitis 1. Acute gallstone pancreatitis- remains very tender. cont IVF, pain and nausea control. awaiting MRCP. will need cholecystectomy on this admission. GI and surgery on board 2. Transaminitis- due to possible retained stone. slightly dilated CBD seen on imaging. will liekly require ERCP. hepatitis panel pending. trend LFT 3. pronlonged QT- avoid prolonging medications 4. HTN-uncontrolled likely due to pain. resume home medications. will titrate if necessary to optimize control 5. DVT ppx- lovenox
[2018-12-12] MEDS ORDERED: ALBUTEROL SO4 8 GM HFA INHALER IH PRN (15:42)
[2018-12-13 03:11] LABS: HEP.C VIRUS AB <0.1 s/co ratio (0.0-0.9)
[2018-12-13] MEDS: MORPHINE SULFATE 2 MG/ML VIAL IVPUSH PRN ×3 (04:03→17:46)
[2018-12-13] MEDS: LACTATED RINGERS SOLUTION 1,000 ML/1,000 ML INFUS.BAG IV SCH ×4 (06:22→23:07)
[2018-12-13] MEDS ORDERED: morphine SULFATE 4 MG/ML VIAL IVPUSH ONE (07:17)
[2018-12-13 07:34] LABS: BASO % 0.3 % (0-2.0); HEMATOCRIT 38.3 % (32.4-45.2); HEMOGLOBIN 12.9 GM/dL (10.7-15.3); LYMPH % 5.8 % (8-40); MCH 30.7 pg (25.7-33.7); MCHC 33.8 g/dl (32.0-36.0); MEAN CELL VOLUME 90.8 fl (80-96); MEAN PLT VOLUME 8.3 fl (7.5-11.1); MONO % 6.5 % (3.8-10.2); NEUT % 87.4 % (42.8-82.8); PLATELET COUNT 146 K/MM3 (134-434); RBC 4.22 M/mm3 (3.60-5.2); RDW 13.3 % (11.6-15.6); WHITE BLOOD COUNT 16.4 K/mm3 (4.0-10.0)
[2018-12-13 08:02] LABS: ALBUMIN 2.7 g/dl (3.4-5.0); ALK PHOS 107 U/L (45-117); ANION GAP 7 MMOL/L (8-16); BILIRUBIN,TOTAL 1.9 mg/dL (0.2-1); BLOOD UREA NITROGEN 10 mg/dL (7-18); CALCIUM 8.6 mg/dL (8.5-10.1); CHLORIDE 105 mmol/L (98-107); CO2 27 mmol/L (21-32); CREATININE 0.9 mg/dL (0.55-1.3); GLUCOSE,RANDOM 82 mg/dL (74-106); MAGNESIUM 1.7 mg/dL (1.8-2.4); POTASSIUM 3.7 mmol/L (3.5-5.1); SGOT/AST 68 U/L (15-37); SGPT/ALT 149 U/L (13-61); SODIUM 139 mmol/L (136-145); TOT PROT 5.6 g/dl (6.4-8.2)
[2018-12-13] MEDS ORDERED: MAGNESIUM SULF 50% (8.12 MEQ/2 ML-1 GM VIAL) IVPB ONE (08:07)
[2018-12-13] MEDS: ENOXAPARIN NA (PORCINE) 40 MG/0.4 ML DISP.SYRIN SQ SCH (10:00)
[2018-12-13] MEDS: ACETAMINOPHEN 1000 MG/100 ML VIAL (NON FORMULARY) IVPB PRN ×2 (10:02→20:32)
[2018-12-13] MEDS: LISINOPRIL 5 MG TABLET (FP) PO SCH (10:12)
[2018-12-13] MEDS ORDERED: PIPERACILLIN/TAZOB 3.375 GM 3.375 GM in DEXTROSE 5%-WATER - 50 ML IVPB SCH (10:45)
[2018-12-13] MEDS ORDERED: DEXTROSE 5%-WATER - 50 ML IVPB ONE ×3 (12:37→20:20)
[2018-12-13] MEDS ORDERED: PIPERACILLIN/TAZOBACTAM 3.375 GM VIAL IVPB ONE ×3 (12:37→20:20)
[2018-12-13] MEDS: PIPERACILLIN/TAZOB 3.375 GM 3.375 GM in DEXTROSE 5%-WATER - 50 ML IVPB SCH ×3 (13:01→20:54)
--- NOTE | 2018-12-13 13:06 | PN ---
Physical Exam: SUBJECTIVE: Patient seen and examined. Had MRCP last night. Pt. states she has not passed stool since wednesday and has not passed gas. Denies nausea or vomiting at this time. Pt. c/o of headache. OBJECTIVE: Vital Signs Period Temp Pulse Resp BP Sys/Kellogg Pulse Ox Last 24 Hr 98.8 F-100.0 F 85-96 19-20 150-179/63-97 94 GENERAL: The patient is awake, alert, and fully oriented, in moderate distress. HEAD: Normal with no signs of trauma. EYES: sclera anicteric, conjunctiva clear. No ptosis. ENT: Ears normal, nares patent, oropharynx clear without exudates, dry mucous membranes. NECK: Trachea midline, full range of motion, supple. LUNGS: Breath sounds equal, clear to auscultation bilaterally, no wheezes, no crackles, no accessory muscle use. HEART: Regular rate and rhythm, S1, S2 without murmur ABDOMEN: Soft, exquisite tenderness to palpation most prominent in epigastrium and RUQ, nondistended, normoactive bowel sounds, guarding EXTREMITIES: 2+ radial pulses, warm, well-perfused, no edema. NEUROLOGICAL: Normal speech, gait not observed. PSYCH: Normal mood, normal affect. SKIN: Warm, dry, normal turgor, no rashes or lesions noted Laboratory Results - last 24 hr 12/11/18 12/11/18 12/13/18 19:05 19:05 06:45 WBC 16.4 H RBC 4.22 Hgb 12.9 Hct 38.3 MCV 90.8 MCH 30.7 MCHC 33.8 RDW 13.3 Plt Count 146 D MPV 8.3 Absolute Neuts (auto) 14.4 H Neutrophils % 87.4 H Lymphocytes % 5.8 L D Monocytes % 6.5 Eosinophils % 0.0 Basophils % 0.3 Nucleated RBC % 0 Sodium Potassium Chloride Carbon Dioxide Anion Gap BUN Creatinine Creat Clearance w eGFR Random Glucose Calcium Phosphorus Magnesium Total Bilirubin AST ALT Alkaline Phosphatase Total Protein Albumin Hepatitis A IgM Ab Negative Hep Bs Antigen Negative Hep B Core IgM Ab Negative Negative Hepatitis C Antibody <0.1 12/13/18 06:45 WBC RBC Hgb Hct MCV MCH MCHC RDW Plt Count MPV Absolute Neuts (auto) Neutrophils % Lymphocytes % Monocytes % Eosinophils % Basophils % Nucleated RBC % Sodium 139 Potassium 3.7 Chloride 105 Carbon Dioxide 27 Anion Gap 7 L BUN 10 Creatinine 0.9 Creat Clearance w eGFR 65.75 Random Glucose 82 Calcium 8.6 Phosphorus 3.0 Magnesium 1.7 L Total Bilirubin 1.9 H AST 68 H ALT 149 H Alkaline Phosphatase 107 Total Protein 5.6 L Albumin 2.7 L Hepatitis A IgM Ab Hep Bs Antigen Hep B Core IgM Ab Hepatitis C Antibody Active Medications Home Medications Medication Instructions Recorded Albuterol Sulfate Inhaler - 2 puff PO Q6H PRN 12/12/18 [Ventolin HFA Inhaler -] Lisinopril/Hydrochlorothiazide 1 each PO DAILY 12/12/18 [Zestoretic 10-12.5 mg Tablet] Current Medications Acetaminophen (Ofirmev Injection -) 1,000 mg IVPB Q6H PRN PRN Reason: PAIN LEVEL 4 - 6 Last Admin: 12/13/18 10:02 Dose: 1,000 mg Albuterol Sulfate (Ventolin Hfa Inhaler -) 2 puff IH Q6H PRN PRN Reason: Dyspnea Enoxaparin Sodium (Lovenox -) 40 mg SQ DAILY PARESH Last Admin: 12/13/18 10:00 Dose: 40 mg Lactated Ringer's (Lactated Ringers Solution) 1,000 ml in 1,000 mls @ 250 mls/ hr IV ASDIR PARESH Last Admin: 12/13/18 10:43 Dose: 250 mls/hr Piperacillin Sod/Tazobactam (Sod 3.375 gm/ Dextrose) 50 mls @ 100 mls/hr IVPB Q6H-IV PARESH; Protocol Piperacillin Sod/Tazobactam (Sod 3.375 gm/ Dextrose) 50 mls @ 100 mls/hr IVPB Q6H-IV PARESH; Protocol Stop: 12/13/18 21:29 Last Admin: 12/13/18 13:01 Dose: 100 mls/hr Lisinopril (Prinivil) 12.5 mg PO DAILY [facility] Last Admin: 12/13/18 10:12 Dose: 12.5 mg Morphine Sulfate (Morphine Sulfate) 4 mg IVPUSH Q4H PRN PRN Reason: PAIN LEVEL 6-10 Last Admin: 12/13/18 13:03 Dose: 4 mg Ondansetron HCl (Zofran Injection) 4 mg IVPUSH Q6H PRN PRN Reason: NAUSEA Last Admin: 12/11/18 22:55 Dose: 4 mg Prochlorperazine Edisylate (Compazine Injection -) 5 mg IVPB Q4H PRN PRN Reason: NAUSEA AND/OR VOMITING ASSESSMENT/PLAN: 53 yo F, PMH HTN and depression, p/w sudden onset of epigastric pain, n/v x1d. Found w/ Lipase >50302, elevated bili and transaminitis on labs and + pancreatitis on CTA/P #Acute Gallstone pancreatitis - +leukocytosis, Lipase >50399, elevated bili and transaminitis on labs and +pancreatitis on CTA/P s/p NS 1L, LR 1L, 4mg morphine X2, zofran, ofirmev in ED CT with no signs of necrotizing pancreatitis. NPO Cont LR 250cc GI consult (Antonio) for ERCP by Dr. Moran tomorrow Surgery consult ([facility]) for lap dami when pt. more stable IV morphine nausea - received zofran. Qtc 479,Zofran stopped, compazine started #Transaminitis- due to possible retained stone. slightly dilated CBD seen on imaging. will likely require ERCP. Follow hepatitis panel. trend LFTs #HTN- resume home medications. will titrate if necessary to optimize control #FEN LR 250cc w/ LR bolus stat replete prn NPO #DVT Lovenox 40 sq #Dispo m/s will likely require lap dami for this admission for Acute gallstone pancreatitis and ERCP prior to surgery Visit type - Emergency Visit Emergency Visit: Yes ED Registration Date: 12/11/18 Care time: The patient presented to the Emergency Department on the above date and was hospitalized for further evaluation of their emergent condition. - New Patient This patient is new to me today: No - Critical Care Critical Care patient: No - Discharge Referral Referred to [facility] Med P.C.: No
--- NOTE | 2018-12-13 14:34 | PN.GI ---
GI Progress Note Subjective: No acute events Complains of upper abdominal pain MRCP read: Small gallstone, no CBD dilation, however, abrupt cutoff noted at the distal CBD. Stone could not be excluded - Objective Vital Signs: Vital Signs Temperature 98.8 F 12/13/18 10:00 Pulse Rate 92 H 12/13/18 10:00 Respiratory Rate 12/13/18 10:00 Blood Pressure 154/94 12/13/18 10:00 O2 Sat by Pulse Oximetry (%) 94 L 12/12/18 21:00 Constitutional: Calm Eyes: No: Sclera Icterus Cardiovascular: Yes: Regular Rate and Rhythm Respiratory: Yes: CTA Bilaterally Gastrointestinal Inspection: No: Distention ...Auscultate: Yes: Normoactive Bowel Sounds ...Palpate: Yes: Soft, Tenderness (TTP mid abdomen, no RUQ TTP) ...Percussion: No: Tympanitic Edema: No (No LE edema) Neurological: Yes: Alert Labs: CBC, BMP 12/13/18 06:45 12/13/18 06:45 Hepatic Panel Total Bilirubin 1.9 mg/dL (0.2-1) H 12/13/18 06:45 AST 68 U/L (15-37) H 12/13/18 06:45 ALT 149 U/L (13-61) H 12/13/18 06:45 Alkaline Phosphatase 107 U/L (45-117) 12/13/18 06:45 Albumin 2.7 g/dl (3.4-5.0) L 12/13/18 06:45 - ....Imaging MRI: Report Reviewed Problem List - Problems (1) Gallstone pancreatitis Assessment/Plan: Suspected acute gallstone pancreatitis. Still with significant mid abdominal tenderness on exam. Retained distal CBD stone could not be excluded by MRCP. Discussed plan for ERCP for further evaluation of bile duct and stone extraction /stenting if necessary. This was discussed with Ms. Blankenship via [email or web address] [id number]. We discussed potential risks of the procedure like but not limited to bleeding, perforation requiring surgery to repair, infection , sedation medication effects and worsening / causing of pancreatitis (occurs in 5-10% of cases) all of which could be potentially life threatening. She has agreed to the procedure.Plan for tomorrow, sooner if necessary. Discussed case with Dr. Moran, biliary endoscopist. For now: Continue IV hydration NPO except meds Repat hepatic panel and CBC ordered for this afternoon along with preprocedural coags and type and screen AM CBC/CMP/CRP ordered Lovenox held for tomorrow Evaluated by surgery. Will need cholecystectomy prior to discharge when acute issues resolve Code(s): K85.10 - BILIARY ACUTE PANCREATITIS WITHOUT NECROSIS OR INFECTION
--- NOTE | 2018-12-13 15:24 | PN ---
Teaching Attending Note Name of Resident: Dariusz Mckeon ATTENDING PHYSICIAN STATEMENT I saw and evaluated the patient. I reviewed the resident's note and discussed the case with the resident. I agree with the resident's findings and plan as documented. SUBJECTIVE: Complains of Epigastric and RUQ pain. Nausea improving. Vomiting resolved. Low grade fever. No cough/sputum/hemoptysis/diarrhea/melena/ hematochezia/dysuria. OBJECTIVE: Tmax 100, Hemodynamically Stable. Last Vital Signs Temp Pulse Resp BP Pulse Ox 98.8 F 92 H 19 154/94 94 L 12/13/18 10:00 12/13/18 10:00 12/13/18 10:00 12/13/18 10:00 12/12/18 21:00 HEENT - Atraumatic, Normocephalic Heart - S1, S2, RRR Lungs - clear to auscultation. Abdomen - Tender ++ Epigastrum and RUQ. Bowel Sounds normal. Extremities - no edema, no calf tenderness. Laboratory Results - last 24 hr 12/11/18 12/11/18 12/13/18 19:05 19:05 06:45 WBC 16.4 H RBC 4.22 Hgb 12.9 Hct 38.3 MCV 90.8 MCH 30.7 MCHC 33.8 RDW 13.3 Plt Count 146 D MPV 8.3 Absolute Neuts (auto) 14.4 H Neutrophils % 87.4 H Lymphocytes % 5.8 L D Monocytes % 6.5 Eosinophils % 0.0 Basophils % 0.3 Nucleated RBC % 0 Sodium Potassium Chloride Carbon Dioxide Anion Gap BUN Creatinine Creat Clearance w eGFR Random Glucose Calcium Phosphorus Magnesium Total Bilirubin AST ALT Alkaline Phosphatase Total Protein Albumin Hepatitis A IgM Ab Negative Hep Bs Antigen Negative Hep B Core IgM Ab Negative Negative Hepatitis C Antibody <0.1 12/13/18 06:45 WBC RBC Hgb Hct MCV MCH MCHC RDW Plt Count MPV Absolute Neuts (auto) Neutrophils % Lymphocytes % Monocytes % Eosinophils % Basophils % Nucleated RBC % Sodium 139 Potassium 3.7 Chloride 105 Carbon Dioxide 27 Anion Gap 7 L BUN 10 Creatinine 0.9 Creat Clearance w eGFR 65.75 Random Glucose 82 Calcium 8.6 Phosphorus 3.0 Magnesium 1.7 L Total Bilirubin 1.9 H AST 68 H ALT 149 H Alkaline Phosphatase 107 Total Protein 5.6 L Albumin 2.7 L Hepatitis A IgM Ab Hep Bs Antigen Hep B Core IgM Ab Hepatitis C Antibody Current Medications Generic Name Dose Route Start Last Admin Trade Name Freq PRN Reason Stop Dose Admin Acetaminophen 1,000 mg 12/13/18 08:10 12/13/18 10:02 Ofirmev Injection - IVPB 1,000 mg Q6H PRN Administration PAIN LEVEL 4 - 6 Albuterol Sulfate 2 puff 12/12/18 15:42 Ventolin Hfa Inhaler - IH Q6H PRN Dyspnea Enoxaparin Sodium 40 mg 12/11/18 17:00 12/13/18 10:00 Lovenox - SQ 40 mg DAILY PARESH Administration Lactated Ringer's 1,000 ml in 1,000 mls @ 250 mls/hr 12/11/18 15:30 12/13/18 10:43 Lactated Ringers Solution IV 250 mls/hr ASDIR PARESH Administration Piperacillin Sod/Tazobactam 50 mls @ 100 mls/hr 12/13/18 15:00 Sod 3.375 gm/ Dextrose IVPB Q6H-IV PARESH Protocol Piperacillin Sod/Tazobactam 50 mls @ 100 mls/hr 12/13/18 12:45 12/13/18 13:01 Sod 3.375 gm/ Dextrose IVPB 12/13/18 21:29 100 mls/hr Q6H-IV PARESH Administration Protocol Lisinopril 12.5 mg 12/11/18 17:30 12/13/18 10:12 Prinivil PO 12.5 mg DAILY PARESH Administration Morphine Sulfate 4 mg 12/11/18 16:54 12/13/18 13:03 Morphine Sulfate IVPUSH 4 mg Q4H PRN Administration PAIN LEVEL 6-10 Ondansetron HCl 4 mg 12/11/18 16:58 12/11/18 22:55 Zofran Injection IVPUSH 4 mg Q6H PRN Administration NAUSEA Prochlorperazine Edisylate 5 mg 12/12/18 08:33 Compazine Injection - IVPB Q4H PRN NAUSEA AND/OR VOMITING ASSESSMENT AND PLAN: 53 year old female with history of HTN presented to the ER with epigastric pain and found to have acute gallstone pancreatitis. 1. Acute Pancreatitis secondary to Gallstones CT Abdomen - Acute Pancreatitis, Dilated CBD Elevated LFTs (improving) MRCP - Gallstone, no CBD dilatation but abrupt cut off - cannot rule out distal CBD stone. Given rising Temp (Tmax 100) and new leukocytosis, will cover with Zosyn empirically for possible Cholangitis. Eval by GI - recommended for ERCP. Will likely require subsequent Cholecystectomy when more stable. Analgesia with MS and Antiemetic agents Zofran, Compazine. NPO/IV hydration 2. HTN - Continue Lisinopril. DVT Px - Lovenox SQ.
--- NOTE | 2018-12-13 16:10 | PN ---
Progress Note (short form) - Note Progress Note: ID consult dictated probable gallstone pancreatitis suspected distal CBD stone plan to continue zosyn until ERCP is done continue IVF and pain management for pancreatitis d/w GI Problem List - Problems (1) Gallstone pancreatitis Code(s): K85.10 - BILIARY ACUTE PANCREATITIS WITHOUT NECROSIS OR INFECTION (2) Common bile duct (CBD) obstruction Code(s): K83.1 - OBSTRUCTION OF BILE DUCT
--- NOTE | 2018-12-13 16:35 | PN ---
Physical Exam: SUBJECTIVE: Patient seen and examined OBJECTIVE: Vital Signs Period Temp Pulse Resp BP Sys/Kellogg Pulse Ox Last 24 Hr 98.8 F-100.0 F 86-96 19-20 137-154/63-97 94 GENERAL: The patient is awake, alert, and fully oriented, in no acute distress. HEAD: Normal with no signs of trauma. EYES: PERRL, extraocular movements intact, sclera anicteric, conjunctiva clear. No ptosis. ENT: Ears normal, nares patent, oropharynx clear without exudates, moist mucous membranes. NECK: Trachea midline, full range of motion, supple. LUNGS: Breath sounds equal, clear to auscultation bilaterally, no wheezes, no crackles, no accessory muscle use. HEART: Regular rate and rhythm, S1, S2 without murmur, rub or gallop. ABDOMEN: Soft, nontender, nondistended, normoactive bowel sounds, no guarding, no rebound, no hepatosplenomegaly, no masses. EXTREMITIES: 2+ pulses, warm, well-perfused, no edema. NEUROLOGICAL: Cranial nerves II through XII grossly intact. Normal speech, gait not observed. PSYCH: Normal mood, normal affect. SKIN: Warm, dry, normal turgor, no rashes or lesions noted Laboratory Results - last 24 hr 12/11/18 12/11/18 12/13/18 19:05 19:05 06:45 WBC 16.4 H RBC 4.22 Hgb 12.9 Hct 38.3 MCV 90.8 MCH 30.7 MCHC 33.8 RDW 13.3 Plt Count 146 D MPV 8.3 Absolute Neuts (auto) 14.4 H Neutrophils % 87.4 H Lymphocytes % 5.8 L D Monocytes % 6.5 Eosinophils % 0.0 Basophils % 0.3 Nucleated RBC % 0 Sodium Potassium Chloride Carbon Dioxide Anion Gap BUN Creatinine Creat Clearance w eGFR Random Glucose Calcium Phosphorus Magnesium Total Bilirubin AST ALT Alkaline Phosphatase Total Protein Albumin Hepatitis A IgM Ab Negative Hep Bs Antigen Negative Hep B Core IgM Ab Negative Negative Hepatitis C Antibody <0.1 12/13/18 06:45 WBC RBC Hgb Hct MCV MCH MCHC RDW Plt Count MPV Absolute Neuts (auto) Neutrophils % Lymphocytes % Monocytes % Eosinophils % Basophils % Nucleated RBC % Sodium 139 Potassium 3.7 Chloride 105 Carbon Dioxide 27 Anion Gap 7 L BUN 10 Creatinine 0.9 Creat Clearance w eGFR 65.75 Random Glucose 82 Calcium 8.6 Phosphorus 3.0 Magnesium 1.7 L Total Bilirubin 1.9 H AST 68 H ALT 149 H Alkaline Phosphatase 107 Total Protein 5.6 L Albumin 2.7 L Hepatitis A IgM Ab Hep Bs Antigen Hep B Core IgM Ab Hepatitis C Antibody Active Medications Generic Name Dose Route Start Last Admin Trade Name Freq PRN Reason Stop Dose Admin Acetaminophen 1,000 mg 12/13/18 08:10 12/13/18 10:02 Ofirmev Injection - IVPB 1,000 mg Q6H PRN Administration PAIN LEVEL 4 - 6 Albuterol Sulfate 2 puff 12/12/18 15:42 Ventolin Hfa Inhaler - IH Q6H PRN Dyspnea Enoxaparin Sodium 40 mg 12/11/18 17:00 12/13/18 10:00 Lovenox - SQ 40 mg DAILY PARESH Administration Lactated Ringer's 1,000 ml in 1,000 mls @ 250 mls/hr 12/11/18 15:30 12/13/18 10:43 Lactated Ringers Solution IV 250 mls/hr ASDIR PARESH Administration Piperacillin Sod/Tazobactam 50 mls @ 100 mls/hr 12/13/18 15:00 Sod 3.375 gm/ Dextrose IVPB Q6H-IV PARESH Protocol Piperacillin Sod/Tazobactam 50 mls @ 100 mls/hr 12/13/18 12:45 12/13/18 16:15 Sod 3.375 gm/ Dextrose IVPB 12/13/18 21:29 100 mls/hr Q6H-IV PARESH Administration Protocol Lisinopril 12.5 mg 12/11/18 17:30 12/13/18 10:12 Prinivil PO 12.5 mg DAILY PARESH Administration Morphine Sulfate 4 mg 12/11/18 16:54 12/13/18 13:03 Morphine Sulfate IVPUSH 4 mg Q4H PRN Administration PAIN LEVEL 6-10 Ondansetron HCl 4 mg 12/11/18 16:58 12/11/18 22:55 Zofran Injection IVPUSH 4 mg Q6H PRN Administration NAUSEA Prochlorperazine Edisylate 5 mg 12/12/18 08:33 Compazine Injection - IVPB Q4H PRN NAUSEA AND/OR VOMITING ASSESSMENT/PLAN:
[2018-12-13 17:00] LABS: HEMATOCRIT 38.1 % (32.4-45.2); HEMOGLOBIN 12.7 GM/dL (10.7-15.3); MCH 30.7 pg (25.7-33.7); MCHC 33.4 g/dl (32.0-36.0); MEAN CELL VOLUME 91.9 fl (80-96); MEAN PLT VOLUME 8.8 fl (7.5-11.1); PLATELET COUNT 133 K/MM3 (134-434); RBC 4.15 M/mm3 (3.60-5.2); RDW 13.2 % (11.6-15.6); WHITE BLOOD COUNT 14.4 K/mm3 (4.0-10.0)
[2018-12-13 17:21] LABS: ALBUMIN 2.6 g/dl (3.4-5.0); BILIRUBIN,DIRECT 1.2 mg/dL (0.0-0.2); BILIRUBIN,TOTAL 2.1 mg/dL (0.2-1); TOT PROT 5.4 g/dl (6.4-8.2)
[2018-12-13 17:40] LABS: INR 1.34 (0.83-1.09); PROTHROMBIN TIME (PATIENT) 15.9 SEC (9.7-13.0)
[2018-12-13 17:43] LABS: ACTIVATED PTT 40.4 SECONDS (25.2-36.5)
--- NOTE | 2018-12-13 19:20 | CONS ---
DATE OF CONSULTATION: DATE OF DICTATION: 12/13/2018 CONSULTATION REQUESTED BY: Hospitalist Service HISTORY OF PRESENT ILLNESS: The patient is a 53-year-old woman with a history of hypertension who developed the acute onset of mid-epigastric pain with associated vomiting for the last one day. She presented on December 11. She has never had a pain like this before. She has developed a sharp pain in her mid-epigastric area. She had multiple episodes of non-bloody emesis. She has no history of travel or sick contacts. She has had no diarrhea. She denies drinking alcohol. She has not been on any new medications. She has no history of any fevers or chills. As soon as she had the pain, it became so severe that she immediately came to the emergency room. PAST MEDICAL HISTORY: Notable for hypertension and depression. PAST SURGICAL HISTORY: Negative. SOCIAL HISTORY: No history of cigarette, alcohol or substance use. FAMILY HISTORY: Noncontributory. ALLERGIES: No known drug allergies. HOME MEDICATIONS: Lisinopril. REVIEW OF SYSTEMS: Notable for persistent abdominal pain. She denies any fevers or chills. PHYSICAL EXAMINATION: General: She is awake and alert. She has difficulty moving in the bed. Vital Signs: T-max is 100; current temperature 99, pulse 86, blood pressure 137/89, respiratory rate 20, weight 88 kg. HEENT: Normocephalic. Her eyes are anicteric. Neck: Supple. Lungs: Diminished breath sounds at the bases. Heart: Regular rate and rhythm. Abdomen: Soft. She has diminished bowel sounds. She has mid-epigastric discomfort to palpation. There is no evidence of abdominal distention. She has no right upper quadrant discomfort on palpation. Extremities: No edema. She has no rash. LABORATORY DATA: Notable for a white count of 16.4, hemoglobin 12.9, platelets of 146. BUN is 10, creatinine is 0.9. Bilirubin is 1.9. AST is 68, ALT is 149. Her urinalysis is negative. Hepatitis serology is negative. A urine culture shows no growth. A MRSA screen is pending. An is notable for a possible distal common bile duct obstruction as there is a cut-off seen in the distal common bile duct. Her lipase was greater than 30,000. She also had a CT scan of her abdomen and pelvis that was consistent with acute pancreatitis with surrounding edema and fluid. She had an ultrasound that shows and over-distended gallbladder with tiny sludge and a couple of polyps. In summary, this is a 53-year-old woman admitted with probable gallstone pancreatitis, suspected distal common bile duct stone on . Would plan to continue Zosyn until an ERCP is done. Would continue IV fluids and pain management for her pancreatitis. She has a low-grade fever so we will obtain blood cultures. The case was discussed with GI and further recommendations will follow. MARYBETH IRWIN M.D. ANA [id number]
[2018-12-14] MEDS: MORPHINE SULFATE 2 MG/ML VIAL IVPUSH PRN ×2 (00:31→05:11)
[2018-12-14] MEDS ORDERED: DEXTROSE 5%-WATER - 50 ML IVPB ONE ×3 (00:50→14:48)
[2018-12-14] MEDS ORDERED: PIPERACILLIN/TAZOBACTAM 3.375 GM VIAL IVPB ONE ×3 (00:50→14:48)
[2018-12-14] MEDS: PIPERACILLIN/TAZOB 3.375 GM 3.375 GM in DEXTROSE 5%-WATER - 50 ML IVPB SCH ×4 (02:17→23:30)
[2018-12-14] MEDS: LACTATED RINGERS SOLUTION 1,000 ML/1,000 ML INFUS.BAG IV SCH ×2 (03:39→07:22)
[2018-12-14 06:39] LABS: BASO % 0.1 % (0-2.0); EOS % 0.1 % (0-4.5); HEMATOCRIT 35.3 % (32.4-45.2); LYMPH % 6.1 % (8-40); MCH 30.7 pg (25.7-33.7); MEAN CELL VOLUME 90.3 fl (80-96); MEAN PLT VOLUME 7.8 fl (7.5-11.1); MONO % 7.1 % (3.8-10.2); NEUT % 86.6 % (42.8-82.8); PLATELET COUNT 129 K/MM3 (134-434); RBC 3.91 M/mm3 (3.60-5.2); RDW 13.4 % (11.6-15.6); WHITE BLOOD COUNT 11.4 K/mm3 (4.0-10.0)
[2018-12-14 07:11] LABS: ALBUMIN 2.3 g/dl (3.4-5.0); ALK PHOS 95 U/L (45-117); ANION GAP 7 MMOL/L (8-16); BILIRUBIN,TOTAL 1.8 mg/dL (0.2-1); BLOOD UREA NITROGEN 10 mg/dL (7-18); CALCIUM 7.6 mg/dL (8.5-10.1); CHLORIDE 108 mmol/L (98-107); CO2 25 mmol/L (21-32); CREATININE 0.8 mg/dL (0.55-1.3); GLUCOSE,RANDOM 91 mg/dL (74-106); MAGNESIUM 2.1 mg/dL (1.8-2.4); PHOSPHOROUS 1.3 mg/dL (2.5-4.9); POTASSIUM 3.3 mmol/L (3.5-5.1); SGOT/AST 35 U/L (15-37); SGPT/ALT 90 U/L (13-61); SODIUM 140 mmol/L (136-145); TOT PROT 5.1 g/dl (6.4-8.2)
[2018-12-14] MEDS ORDERED: KETOROLAC TROMETHAMINE 15 MG/ML VIAL IVPUSH ONE (07:15)
[2018-12-14] MEDS: ACETAMINOPHEN 1000 MG/100 ML VIAL (NON FORMULARY) IVPB PRN (07:18)
[2018-12-14] MEDS ORDERED: POTASSIUM PHOSPHATE 30 MM in SODIUM CHLORIDE 250 ML IVPB ONE (07:55)
[2018-12-14] MEDS: LISINOPRIL 5 MG TABLET (FP) PO SCH (09:02)
[2018-12-14] MEDS ORDERED: GLYCOPYRROLATE 0.2 MG/1 ML VIAL ONE ×3 (10:34)
[2018-12-14] MEDS ORDERED: NEOSTIGMINE METHYLSULFATE 0.5 MG/ML - 10 ML MDV ONE (10:34)
[2018-12-14] MEDS ORDERED: INDOMETHACIN 50 MG RECTAL SUPPOSITORY PR ONE ×2 (10:42→11:02)
[2018-12-14 11:22] LABS: LIPASE 263 U/L (73-393)
--- NOTE | 2018-12-14 12:54 | PN ---
Progress Note (short form) - Note Progress Note: GI Procedure NOte: Please see scanned ERCP procedure note. A small distal CBD stone was found and removed but the procedure was long and difficult resulting in swelling and closure of the sphincterotomy so a 7Fr x 4cm double pigtail stent was inserted. Findings were discussed with Dr. Izquierdo and with the patient. I informed her that she will need another ERCP in 3 months to remove the stent and I gave her my business card. Prior to the procedure I did discuss the potential risks of the procedure including multiorgan failure resulting from ERCP aggravated pancreatitis. She did receive an Indocin suppository and brisk IV fluids will be ordered.
--- NOTE | 2018-12-14 12:58 | PN ---
Physical Exam: SUBJECTIVE: Patient seen and examined. Pt. states that she is in pain and that the pain medications wear off quickly usually after 15 min or so. The pain is bearable for 3 hours but becomes unbearable after that. Pt. spiked fever to 102.2 overnight and was given Tylenol to good effect. Pt. states she is voiding without difficulty however is not passing gas or stool. Pt. is NPO. OBJECTIVE: Vital Signs Period Temp Pulse Resp BP Sys/Kellogg Pulse Ox Last 24 Hr 98.3 F-102.2 F 79-99 18-20 137-154/75-94 95-96 GENERAL: The patient is awake, alert, and fully oriented, in moderate distress. HEAD: Normal with no signs of trauma. EYES: sclera anicteric, conjunctiva clear. No ptosis. ENT: Ears normal, nares patent, oropharynx clear without exudates, dry mucous membranes. NECK: Trachea midline, full range of motion, supple. LUNGS: Decreased breath sounds, clear to auscultation bilaterally, no wheezes, no crackles, no accessory muscle use. HEART: Regular rate and rhythm, S1, S2 without murmur ABDOMEN: Soft, exquisite tenderness to palpation most prominent in epigastrium and LUQ, nondistended, normoactive bowel sounds, guarding EXTREMITIES: 2+ radial pulses, warm, well-perfused, no calf tenderness, no edema. NEUROLOGICAL: Normal speech, gait not observed. PSYCH: Normal mood, normal affect. SKIN: Warm, dry, normal turgor, no rashes or lesions noted Laboratory Results - last 24 hr 12/13/18 12/13/18 12/13/18 15:45 15:45 15:45 WBC 14.4 H RBC 4.15 Hgb 12.7 Hct 38.1 MCV 91.9 MCH 30.7 MCHC 33.4 RDW 13.2 Plt Count 133 L MPV 8.8 Absolute Neuts (auto) Neutrophils % Lymphocytes % Monocytes % Eosinophils % Basophils % Nucleated RBC % PT with INR 15.90 H INR 1.34 H PTT (Actin FS) 40.4 H Sodium Potassium Chloride Carbon Dioxide Anion Gap BUN Creatinine Creat Clearance w eGFR Random Glucose Calcium Phosphorus Magnesium Total Bilirubin 2.1 H Direct Bilirubin 1.2 H AST 55 H ALT 123 H Alkaline Phosphatase 111 Total Protein 5.4 L Albumin 2.6 L Lipase Blood Type Antibody Screen 12/13/18 12/14/18 12/14/18 15:45 06:00 06:00 WBC 11.4 H RBC 3.91 Hgb 12.0 Hct 35.3 MCV 90.3 MCH 30.7 MCHC 34.0 RDW 13.4 Plt Count 129 L MPV 7.8 D Absolute Neuts (auto) 9.9 H Neutrophils % 86.6 H Lymphocytes % 6.1 L Monocytes % 7.1 Eosinophils % 0.1 D Basophils % 0.1 Nucleated RBC % 0 PT with INR INR PTT (Actin FS) Sodium 140 Potassium 3.3 L Chloride 108 H Carbon Dioxide 25 Anion Gap 7 L BUN 10 Creatinine 0.8 Creat Clearance w eGFR 75.32 Random Glucose 91 Calcium 7.6 L Phosphorus 1.3 L Magnesium 2.1 Total Bilirubin 1.8 H Direct Bilirubin AST 35 ALT 90 H Alkaline Phosphatase 95 Total Protein 5.1 L Albumin 2.3 L Lipase 263 Blood Type A POSITIVE Antibody Screen Negative Active Medications Home Medications Medication Instructions Recorded Albuterol Sulfate Inhaler - 2 puff PO Q6H PRN 12/12/18 [Ventolin HFA Inhaler -] Lisinopril/Hydrochlorothiazide 1 each PO DAILY 12/12/18 [Zestoretic 10-12.5 mg Tablet] Current Medications Acetaminophen (Ofirmev Injection -) 1,000 mg IVPB Q6H PRN PRN Reason: PAIN LEVEL 4 - 6 Last Admin: 12/14/18 07:18 Dose: 1,000 mg Albuterol Sulfate (Ventolin Hfa Inhaler -) 2 puff IH Q6H PRN PRN Reason: Dyspnea Enoxaparin Sodium (Lovenox -) 40 mg SQ DAILY PARESH Last Admin: 12/13/18 10:00 Dose: 40 mg Lactated Ringer's (Lactated Ringers Solution) 1,000 ml in 1,000 mls @ 250 mls/ hr IV ASDIR PARESH Last Admin: 12/14/18 07:22 Dose: 250 mls/hr Piperacillin Sod/Tazobactam (Sod 3.375 gm/ Dextrose) 50 mls @ 100 mls/hr IVPB Q6H-IV PARESH; Protocol Last Admin: 12/14/18 09:01 Dose: 100 mls/hr Potassium Phosphate 30 mm/ (Sodium Chloride) 510 mls @ 63.75 mls/hr IVPB ONCE ONE Stop: 12/14/18 15:59 Lisinopril (Prinivil) 12.5 mg PO DAILY PARESH Last Admin: 12/14/18 09:02 Dose: 12.5 mg Morphine Sulfate (Morphine Sulfate) 4 mg IVPUSH Q4H PRN PRN Reason: PAIN LEVEL 6-10 Last Admin: 12/14/18 05:11 Dose: 4 mg Ondansetron HCl (Zofran Injection) 4 mg IVPUSH Q6H PRN PRN Reason: NAUSEA Last Admin: 12/11/18 22:55 Dose: 4 mg Prochlorperazine Edisylate (Compazine Injection -) 5 mg IVPB Q4H PRN PRN Reason: NAUSEA AND/OR VOMITING ASSESSMENT/PLAN: 53 yo F, PMH HTN and depression, p/w sudden onset of epigastric pain, n/v x1d. Found w/ Lipase >21644, elevated bili and transaminitis on labs and + pancreatitis on CTA/P #Acute Gallstone pancreatitis - +leukocytosis, Lipase >59595, elevated bili and transaminitis on labs and +pancreatitis on CTA/P s/p NS 1L, LR 1L, 4mg morphine X2, zofran, ofirmev in ED CT with no signs of necrotizing pancreatitis. NPO Cont LR 250cc GI consult (Antonio) appreciated Pt. is s/p ERCP- small stone in distal CBD removed. Surgery consult (Bradly) for lap dami when pt. more stable IV morphine nausea - received zofran. Qtc 479,Zofran stopped, compazine started #Transaminitis- due to possible retained stone. s/p ERCP with stent placement (will need repeat ERCP for stent retrieval) LFTs trending down Hepatitis panel negative trend LFTs #HTN-stable resume home medications. will titrate if necessary to optimize control #FEN c/w LR 250cc replete prn NPO #DVT Hold AC for ERCP #Dispo m/s Visit type - Emergency Visit Emergency Visit: Yes ED Registration Date: 12/11/18 Care time: The patient presented to the Emergency Department on the above date and was hospitalized for further evaluation of their emergent condition. - New Patient This patient is new to me today: No - Critical Care Critical Care patient: No - Discharge Referral Referred to [facility] Med P.C.: No
[2018-12-14] MEDS ORDERED: LACTATED RINGERS SOLUTION 1,000 ML/1,000 ML INFUS.BAG IV SCH ×2 (13:00→23:00)
--- NOTE | 2018-12-14 14:23 | PN ---
Progress Note (short form) - Note Progress Note: Attending Surgeon ERCP results reviewed; will need to monitor for possible post ERCP pancreatitis ; I will be away 12/15-12/21 inclusive; I will ask Dr. Vince Jean to cover in my absence. Surinder Abdullahi MD FACS
[2018-12-14] MEDS: POTASSIUM PHOSPHATE 30 MM in SODIUM CHLORIDE 500 ML IVPB ONE ×2 (14:40→16:04)
--- NOTE | 2018-12-14 14:40 | PN ---
Progress Note (short form) - Note Progress Note: s/p ERCP- needed stent placement feels much better, no abdominal pain Vital Signs Period Temp Pulse Resp BP Sys/Kellogg Pulse Ox Last 24 Hr 98.3 F-102.2 F 68-99 18-22 146-163/75-99 94-96 cor-rrr lungs clear abd soft,nt ext no edema probable gallstone pancreatitis CBC, BMP 12/14/18 06:00 12/14/18 06:00 Microbiology 12/13/18 14:12 Nares - Mrsa Screen - Left MRSA Screen - Final NO MRSA ISOLATED 12/13/18 14:12 Nares - Mrsa Screen - Right MRSA Screen - Final NO MRSA ISOLATED 12/11/18 12:26 Urine - Urine Clean Catch Urine Culture - Final NO GROWTH OBTAINED Active Medications Acetaminophen (Ofirmev Injection -) 1,000 mg IVPB Q6H PRN PRN Reason: PAIN LEVEL 4 - 6 Last Admin: 12/14/18 07:18 Dose: 1,000 mg Albuterol Sulfate (Ventolin Hfa Inhaler -) 2 puff IH Q6H PRN PRN Reason: Dyspnea Enoxaparin Sodium (Lovenox -) 40 mg SQ DAILY PARESH Last Admin: 12/13/18 10:00 Dose: 40 mg Piperacillin Sod/Tazobactam (Sod 3.375 gm/ Dextrose) 50 mls @ 100 mls/hr IVPB Q6H-IV PARESH; Protocol Last Admin: 12/14/18 09:01 Dose: 100 mls/hr Potassium Phosphate 30 mm/ (Sodium Chloride) 510 mls @ 63.75 mls/hr IVPB ONCE ONE Stop: 12/14/18 15:59 Lactated Ringer's (Lactated Ringers Solution) 1,000 ml in 1,000 mls @ 250 mls/ hr IV ASDIR PARESH Stop: 12/14/18 23:00 Lactated Ringer's (Lactated Ringers Solution) 1,000 ml in 1,000 mls @ 125 mls/ hr IV ASDIR PARESH Stop: 12/15/18 06:00 Lactated Ringer's (Lactated Ringers Solution) 1,000 ml in 1,000 mls @ 175 mls/ hr IV ASDIR PARESH Stop: 12/15/18 14:00 Lactated Ringer's (Lactated Ringers Solution) 1,000 ml in 1,000 mls @ 150 mls/ hr IV ASDIR PARESH Lisinopril (Prinivil) 12.5 mg PO DAILY PARESH Last Admin: 12/14/18 09:02 Dose: 12.5 mg Morphine Sulfate (Morphine Sulfate) 4 mg IVPUSH Q4H PRN PRN Reason: PAIN LEVEL 6-10 Last Admin: 12/14/18 05:11 Dose: 4 mg Ondansetron HCl (Zofran Injection) 4 mg IVPUSH Q6H PRN PRN Reason: NAUSEA Last Admin: 12/11/18 22:55 Dose: 4 mg Prochlorperazine Edisylate (Compazine Injection -) 5 mg IVPB Q4H PRN PRN Reason: NAUSEA AND/OR VOMITING choledocholithiasis s/p ERCP with stent placement plan to continue zosyn until am gallstone pancreatitis continue IVF and pain management for pancreatiti Problem List - Problems (1) Gallstone pancreatitis Code(s): K85.10 - BILIARY ACUTE PANCREATITIS WITHOUT NECROSIS OR INFECTION (2) Common bile duct (CBD) obstruction Code(s): K83.1 - OBSTRUCTION OF BILE DUCT
--- NOTE | 2018-12-14 16:08 | PN ---
Teaching Attending Note Name of Resident: Dariusz Mckeon ATTENDING PHYSICIAN STATEMENT I saw and evaluated the patient. I reviewed the resident's note and discussed the case with the resident. I agree with the resident's findings and plan as documented. SUBJECTIVE: Ongoing Epigastric and RUQ pain. Nausea improving. Vomiting resolved. Febrile overnight. No cough/sputum/hemoptysis/diarrhea/melena/ hematochezia/dysuria. OBJECTIVE: Tmax 102.2, Hemodynamically Stable. Last Vital Signs Temp Pulse Resp BP Pulse Ox 98.7 F 68 22 H 157/94 95 12/14/18 14:28 12/14/18 14:28 12/14/18 14:28 12/14/18 14:28 12/14/18 14:20 Heart - S1, S2, RRR Lungs - clear to auscultation. Abdomen - Tender ++ Epigastrum and RUQ. Bowel Sounds normal. Extremities - no edema, no calf tenderness. Laboratory Results - last 24 hr 12/13/18 12/13/18 12/13/18 15:45 15:45 15:45 WBC 14.4 H RBC 4.15 Hgb 12.7 Hct 38.1 MCV 91.9 MCH 30.7 MCHC 33.4 RDW 13.2 Plt Count 133 L MPV 8.8 Absolute Neuts (auto) Neutrophils % Lymphocytes % Monocytes % Eosinophils % Basophils % Nucleated RBC % PT with INR 15.90 H INR 1.34 H PTT (Actin FS) 40.4 H Sodium Potassium Chloride Carbon Dioxide Anion Gap BUN Creatinine Creat Clearance w eGFR Random Glucose Calcium Phosphorus Magnesium Total Bilirubin 2.1 H Direct Bilirubin 1.2 H AST 55 H ALT 123 H Alkaline Phosphatase 111 Total Protein 5.4 L Albumin 2.6 L Lipase Blood Type Antibody Screen 12/13/18 12/14/18 12/14/18 15:45 06:00 06:00 WBC 11.4 H RBC 3.91 Hgb 12.0 Hct 35.3 MCV 90.3 MCH 30.7 MCHC 34.0 RDW 13.4 Plt Count 129 L MPV 7.8 D Absolute Neuts (auto) 9.9 H Neutrophils % 86.6 H Lymphocytes % 6.1 L Monocytes % 7.1 Eosinophils % 0.1 D Basophils % 0.1 Nucleated RBC % 0 PT with INR INR PTT (Actin FS) Sodium 140 Potassium 3.3 L Chloride 108 H Carbon Dioxide 25 Anion Gap 7 L BUN 10 Creatinine 0.8 Creat Clearance w eGFR 75.32 Random Glucose 91 Calcium 7.6 L Phosphorus 1.3 L Magnesium 2.1 Total Bilirubin 1.8 H Direct Bilirubin AST 35 ALT 90 H Alkaline Phosphatase 95 Total Protein 5.1 L Albumin 2.3 L Lipase 263 Blood Type A POSITIVE Antibody Screen Negative Current Medications Generic Name Dose Route Start Last Admin Trade Name Freq PRN Reason Stop Dose Admin Acetaminophen 1,000 mg 12/13/18 08:10 12/14/18 07:18 Ofirmev Injection - IVPB 1,000 mg Q6H PRN Administration PAIN LEVEL 4 - 6 Albuterol Sulfate 2 puff 12/12/18 15:42 Ventolin Hfa Inhaler - IH Q6H PRN Dyspnea Enoxaparin Sodium 40 mg 12/11/18 17:00 12/13/18 10:00 Lovenox - SQ 40 mg DAILY PARESH Administration Piperacillin Sod/Tazobactam 50 mls @ 100 mls/hr 12/13/18 21:00 12/14/18 14:49 Sod 3.375 gm/ Dextrose IVPB 100 mls/hr Q6H-IV PARESH Administration Protocol Lactated Ringer's 1,000 ml in 1,000 mls @ 250 mls/hr 12/14/18 13:00 12/14/18 14:35 Lactated Ringers Solution IV 12/14/18 23:00 250 mls/hr ASDIR PARESH Administration Lactated Ringer's 1,000 ml in 1,000 mls @ 125 mls/hr 12/14/18 23:00 Lactated Ringers Solution IV 12/15/18 06:00 ASDIR PARESH Lactated Ringer's 1,000 ml in 1,000 mls @ 175 mls/hr 12/15/18 06:00 Lactated Ringers Solution IV 12/15/18 14:00 ASDIR PARESH Lactated Ringer's 1,000 ml in 1,000 mls @ 150 mls/hr 12/15/18 14:00 Lactated Ringers Solution IV ASDIR PARESH Lisinopril 12.5 mg 12/11/18 17:30 12/14/18 09:02 Prinivil PO 12.5 mg DAILY PARESH Administration Morphine Sulfate 4 mg 12/11/18 16:54 12/14/18 05:11 Morphine Sulfate IVPUSH 4 mg Q4H PRN Administration PAIN LEVEL 6-10 Ondansetron HCl 4 mg 12/11/18 16:58 12/11/18 22:55 Zofran Injection IVPUSH 4 mg Q6H PRN Administration NAUSEA Prochlorperazine Edisylate 5 mg 12/12/18 08:33 Compazine Injection - IVPB Q4H PRN NAUSEA AND/OR VOMITING ASSESSMENT AND PLAN: 53 year old female with history of HTN presented to the ER with epigastric pain and found to have acute gallstone pancreatitis. 1. Acute Pancreatitis secondary to Gallstones/Choledocholithiasis CT Abdomen - Acute Pancreatitis, Dilated CBD Elevated LFTs (improving) MRCP - Gallstone, no CBD dilatation but abrupt cut off - cannot rule out distal CBD stone. Given fever and leukocytosis, will cover with Zosyn - Day 2 for possible Cholangitis. s/p ERCP - distal stone extraction with stenting Will likely require subsequent Cholecystectomy when more stable. Analgesia with MS and Antiemetic agents Zofran, Compazine. Resumed on clear liquid diet. Continue IV hydration 2. HTN - Continue Lisinopril. 3. Hypophosphatemia/Hypokalemia - repleted. DVT Px - will resume Lovenox SQ tomorrow.
[2018-12-15] MEDS ORDERED: PIPERACILLIN/TAZOBACTAM 3.375 GM VIAL IVPB ONE ×5 (00:01→20:00)
[2018-12-15] MEDS ORDERED: DEXTROSE 5%-WATER - 50 ML IVPB ONE ×5 (00:01→20:00)
[2018-12-15] MEDS: PIPERACILLIN/TAZOB 3.375 GM 3.375 GM in DEXTROSE 5%-WATER - 50 ML IVPB SCH ×4 (03:31→21:07)
[2018-12-15] MEDS ORDERED: LACTATED RINGERS SOLUTION 1,000 ML/1,000 ML INFUS.BAG IV SCH (06:00)
[2018-12-15 06:45] LABS: BASO % 0.2 % (0-2.0); HEMATOCRIT 31.7 % (32.4-45.2); HEMOGLOBIN 10.9 GM/dL (10.7-15.3); MCH 31.2 pg (25.7-33.7); MCHC 34.6 g/dl (32.0-36.0); MEAN CELL VOLUME 90.2 fl (80-96); MEAN PLT VOLUME 8.5 fl (7.5-11.1); MONO % 6.6 % (3.8-10.2); NEUT % 85.2 % (42.8-82.8); PLATELET COUNT 130 K/MM3 (134-434); RBC 3.51 M/mm3 (3.60-5.2); RDW 13.2 % (11.6-15.6); WHITE BLOOD COUNT 9.6 K/mm3 (4.0-10.0)
[2018-12-15 07:31] LABS: ALBUMIN 2.2 g/dl (3.4-5.0); ALK PHOS 123 U/L (45-117); AMYLASE 42 U/L (25-115); ANION GAP 7 MMOL/L (8-16); BILIRUBIN,DIRECT 0.7 mg/dL (0.0-0.2); BILIRUBIN,TOTAL 1.1 mg/dL (0.2-1); BLOOD UREA NITROGEN 12 mg/dL (7-18); CALCIUM 7.7 mg/dL (8.5-10.1); CHLORIDE 111 mmol/L (98-107); CO2 25 mmol/L (21-32); CREATININE 0.8 mg/dL (0.55-1.3); GLUCOSE,RANDOM 119 mg/dL (74-106); LIPASE 104 U/L (73-393); PHOSPHOROUS 2.5 mg/dL (2.5-4.9); POTASSIUM 3.6 mmol/L (3.5-5.1); SGOT/AST 33 U/L (15-37); SGPT/ALT 73 U/L (13-61); SODIUM 142 mmol/L (136-145); TOT PROT 5.1 g/dl (6.4-8.2)
[2018-12-15] MEDS: LISINOPRIL 5 MG TABLET (FP) PO SCH (09:05)
[2018-12-15] MEDS: PANTOPRAZOLE SODIUM 40 MG VIAL IVPUSH SCH (09:05)
[2018-12-15] MEDS: ENOXAPARIN NA (PORCINE) 40 MG/0.4 ML DISP.SYRIN SQ SCH (09:08)
--- NOTE | 2018-12-15 09:20 | PN ---
Progress Note (short form) - Note Progress Note: Anesthesia postop note 53 y/o F s/p GA for ercp POD#1, vss, aaox3, no complaints. No anesthesia complications.
--- NOTE | 2018-12-15 09:36 | PN ---
Progress Note (short form) - Note Progress Note: Pt seen and examined. Endorses some heartburn after eating soup last night. Has been oob to the restroom. Tolerating clears with no n/v. Reports pain has resolved. Denies cp/sob, n/v/d. Vital Signs Temp 98.9 F 12/15/18 06:00 Pulse 55 L 12/15/18 06:00 Resp 20 12/15/18 06:00 BP 145/77 12/15/18 06:00 Pulse Ox 95 12/14/18 21:00 Intake & Output 12/14/18 12/14/18 12/15/18 11:59 23:59 11:59 Intake Total 2800 1780 800 Balance 2800 1780 800 Intake: IV 2800 500 750 LACTATED RINGERS SOLUTION 750 1,000 ml In 1,000 ml @ 125 mls/hr IV ASDIR PARESH Rx#:[id number] LACTATED RINGERS SOLUTION 2000 500 1,000 ml In 1,000 ml @ 250 mls/hr IV ASDIR PARESH Rx#:[id number] IVPB 650 50 Oral 0 630 Other: Voiding Method Toilet Toilet # Unmeasured Voids Void 2 Bowel Movement No No CBC, BMP 12/15/18 06:00 12/15/18 06:00 Gen: awake, alert, nad Resp: Unlabored on RA] Abdo: soft, nt/nd, + bowel sounds A/P: 53 y/o F w/ PMHx HTN and depression, admitted 12/11 w/ sudden onset of epigastric pain, n/v/suspected acute gallstone pancreatitis, now s/p ERCP on which revealed a small distal CBD stone (removed) and stent placement. Afebrile, VSS No leukocytosis LFTS, bili trending down. Amylase/lipase normalized -Abx per ID -Management per GI and primary team -Plan for lap dami tomorrow 12/[address] Valladares -Npo after midnight -Full labs in Am cbc, chem, coags, t&s -Hold AM Lovenox -Consent per attending d/w attending Dr Valladares
--- NOTE | 2018-12-15 13:18 | PN ---
Physical Exam: SUBJECTIVE: Patient seen and examined. Pt. states she had soup and that it caused some "burning" in her belly. Pt. denies any pain, nausea, or vomiting. Pt. denies passing gas or stool. Pt. endorses an appetite. OBJECTIVE: Vital Signs Period Temp Pulse Resp BP Sys/Kellogg Pulse Ox Last 24 Hr 98.4 F-98.9 F 55-81 20-22 145-163/70-118 95-96 GENERAL: The patient is awake, alert, and fully oriented, in mild distress. HEAD: Normal with no signs of trauma. EYES: sclera anicteric, conjunctiva clear. No ptosis. ENT: Ears normal, nares patent, oropharynx clear without exudates, moist mucous membranes. NECK: Trachea midline, full range of motion, supple. LUNGS: Decreased breath sounds, clear to auscultation bilaterally, no wheezes, no crackles, no accessory muscle use. HEART: Regular rate and rhythm, S1, S2 without murmur ABDOMEN: Soft, significant decreased tenderness to palpation in epigastrium, nondistended, normoactive bowel sounds, EXTREMITIES: 2+ radial pulses, warm, well-perfused, no calf tenderness, no edema. NEUROLOGICAL: Normal speech, gait not observed. PSYCH: Normal mood, normal affect. SKIN: Warm, dry, normal turgor, no rashes or lesions noted Laboratory Results - last 24 hr 12/15/18 12/15/18 06:00 06:00 WBC 9.6 RBC 3.51 L Hgb 10.9 Hct 31.7 L MCV 90.2 MCH 31.2 MCHC 34.6 RDW 13.2 Plt Count 130 L MPV 8.5 Absolute Neuts (auto) 8.2 H Neutrophils % 85.2 H Lymphocytes % 8.0 D Monocytes % 6.6 Eosinophils % 0.0 D Basophils % 0.2 Nucleated RBC % 0 Sodium 142 Potassium 3.6 Chloride 111 H Carbon Dioxide 25 Anion Gap 7 L BUN 12 Creatinine 0.8 Creat Clearance w eGFR 75.32 Random Glucose 119 H Calcium 7.7 L Phosphorus 2.5 Magnesium 2.0 Total Bilirubin 1.1 H Direct Bilirubin 0.7 H AST 33 ALT 73 H Alkaline Phosphatase 123 H C-Reactive Protein 19.4 H Total Protein 5.1 L Albumin 2.2 L Total Amylase 42 Lipase 104 Active Medications Home Medications Medication Instructions Recorded Albuterol Sulfate Inhaler - 2 puff PO Q6H PRN 12/12/18 [Ventolin HFA Inhaler -] Lisinopril/Hydrochlorothiazide 1 each PO DAILY 12/12/18 [Zestoretic 10-12.5 mg Tablet] Current Medications Acetaminophen (Ofirmev Injection -) 1,000 mg IVPB Q6H PRN PRN Reason: PAIN LEVEL 4 - 6 Last Admin: 12/14/18 07:18 Dose: 1,000 mg Albuterol Sulfate (Ventolin Hfa Inhaler -) 2 puff IH Q6H PRN PRN Reason: Dyspnea Enoxaparin Sodium (Lovenox -) 40 mg SQ DAILY REPLACED BY [facility] Last Admin: 12/15/18 09:08 Dose: 40 mg Piperacillin Sod/Tazobactam (Sod 3.375 gm/ Dextrose) 50 mls @ 100 mls/hr IVPB Q6H-IV PARESH; Protocol Last Admin: 12/15/18 09:10 Dose: 100 mls/hr Lactated Ringer's (Lactated Ringers Solution) 1,000 ml in 1,000 mls @ 175 mls/ hr IV ASDIR REPLACED BY [facility] Stop: 12/15/18 14:00 Last Admin: 12/15/18 07:46 Dose: 175 mls/hr Lactated Ringer's (Lactated Ringers Solution) 1,000 ml in 1,000 mls @ 150 mls/ hr IV ASDIR REPLACED BY [facility] Lisinopril (Prinivil) 12.5 mg PO DAILY REPLACED BY [facility] Last Admin: 12/15/18 09:05 Dose: 12.5 mg Morphine Sulfate (Morphine Sulfate) 4 mg IVPUSH Q4H PRN PRN Reason: PAIN LEVEL 6-10 Last Admin: 12/14/18 05:11 Dose: 4 mg Ondansetron HCl (Zofran Injection) 4 mg IVPUSH Q6H PRN PRN Reason: NAUSEA Last Admin: 12/11/18 22:55 Dose: 4 mg Pantoprazole Sodium (Protonix Iv) 40 mg IVPUSH DAILY REPLACED BY [facility] Last Admin: 12/15/18 09:05 Dose: 40 mg Prochlorperazine Edisylate (Compazine Injection -) 5 mg IVPB Q4H PRN PRN Reason: NAUSEA AND/OR VOMITING ASSESSMENT/PLAN: 53 yo F, PMH HTN and depression, p/w sudden onset of epigastric pain, n/v x 1 D. Found w/ Lipase >16681, elevated bili and transaminitis on labs and + pancreatitis on CT-A/P #Acute Gallstone pancreatitis Leukocytosis, Lipase >73232, elevated Bili and Transaminitis on labs and + pancreatitis on CTA/P s/p NS 1L, LR 1L, 4mg morphine X2, zofran, ofirmev in ED CT with no signs of necrotizing pancreatitis, abscess or cyst/pseudocyst, some air in biliary tree but likely caused by ERCP IVF GI consult (Antonio) appreciated Pt. is s/p ERCP (12/11/09)- small stone in distal CBD removed. Surgery consult (Bradly) for lap lucia when pt. more stable--> Surgery scheduled for 12/16/18@ 3pm [address] Dr[address] Valladares c/w IV morphine c/w compazine, D/c Zofran 2/2 QTc of 479 c/w Day 3 of Zosyn started Protonix 40mg IV #Transaminitis- resolving s/p ERCP with stent placement (will need repeat ERCP for stent retrieval) LFTs trending down Hepatitis panel negative trend LFTs #HTN-stable resume home medications. will titrate if necessary to optimize control #FEN c/w LR @175 for 1L and then LR at 150 for second L. replete prn, Phosphorous and Potassium repleted Clear liquids, NPO after midnight #DVT Hold AC for Lap. Lucia. per Surgery #Dispo m/s Visit type - Emergency Visit Emergency Visit: Yes ED Registration Date: 12/11/18 Care time: The patient presented to the Emergency Department on the above date and was hospitalized for further evaluation of their emergent condition. - New Patient This patient is new to me today: No - Critical Care Critical Care patient: No - Discharge Referral Referred to [facility] Med P.C.: No
[2018-12-15] MEDS: LACTATED RINGERS SOLUTION 1,000 ML/1,000 ML INFUS.BAG IV SCH ×2 (14:00→21:09)
--- NOTE | 2018-12-15 15:21 | PN ---
Teaching Attending Note Name of Resident: Dariusz Mckeon ATTENDING PHYSICIAN STATEMENT I saw and evaluated the patient. I reviewed the resident's note and discussed the case with the resident. I agree with the resident's findings and plan as documented. SUBJECTIVE: Abdominal pain much improved post-ERCP. No nausea/vomiting. no further fevers. No cough/sputum/hemoptysis/diarrhea/melena/hematochezia/dysuria. OBJECTIVE: Afebrile, Hemodynamically Stable. Last Vital Signs Temp Pulse Resp BP Pulse Ox 98.9 F 55 L 20 145/77 95 12/15/18 06:00 12/15/18 06:00 12/15/18 06:00 12/15/18 06:00 12/14/18 21:00 Heart - S1, S2, RRR Lungs - clear to auscultation. Abdomen - Epigastric and RUQ tenderness improved. Bowel Sounds normal. Extremities - no edema, no calf tenderness. Laboratory Results - last 24 hr 12/15/18 12/15/18 06:00 06:00 WBC 9.6 RBC 3.51 L Hgb 10.9 Hct 31.7 L MCV 90.2 MCH 31.2 MCHC 34.6 RDW 13.2 Plt Count 130 L MPV 8.5 Absolute Neuts (auto) 8.2 H Neutrophils % 85.2 H Lymphocytes % 8.0 D Monocytes % 6.6 Eosinophils % 0.0 D Basophils % 0.2 Nucleated RBC % 0 Sodium 142 Potassium 3.6 Chloride 111 H Carbon Dioxide 25 Anion Gap 7 L BUN 12 Creatinine 0.8 Creat Clearance w eGFR 75.32 Random Glucose 119 H Calcium 7.7 L Phosphorus 2.5 Magnesium 2.0 Total Bilirubin 1.1 H Direct Bilirubin 0.7 H AST 33 ALT 73 H Alkaline Phosphatase 123 H C-Reactive Protein 19.4 H Total Protein 5.1 L Albumin 2.2 L Total Amylase 42 Lipase 104 Current Medications Generic Name Dose Route Start Last Admin Trade Name Freq PRN Reason Stop Dose Admin Acetaminophen 1,000 mg 12/13/18 08:10 12/14/18 07:18 Ofirmev Injection - IVPB 1,000 mg Q6H PRN Administration PAIN LEVEL 4 - 6 Albuterol Sulfate 2 puff 12/12/18 15:42 Ventolin Hfa Inhaler - IH Q6H PRN Dyspnea Enoxaparin Sodium 40 mg 12/11/18 17:00 12/15/18 09:08 Lovenox - SQ 40 mg DAILY PARESH Administration Piperacillin Sod/Tazobactam 50 mls @ 100 mls/hr 12/13/18 21:00 12/15/18 15:03 Sod 3.375 gm/ Dextrose IVPB 100 mls/hr Q6H-IV PARESH Administration Protocol Lactated Ringer's 1,000 ml in 1,000 mls @ 150 mls/hr 12/15/18 14:00 12/15/18 14:00 Lactated Ringers Solution IV 150 mls/hr ASDIR PARESH Administration Lisinopril 12.5 mg 12/11/18 17:30 12/15/18 09:05 Prinivil PO 12.5 mg DAILY PARESH Administration Morphine Sulfate 4 mg 12/11/18 16:54 12/14/18 05:11 Morphine Sulfate IVPUSH 4 mg Q4H PRN Administration PAIN LEVEL 6-10 Ondansetron HCl 4 mg 12/11/18 16:58 12/11/18 22:55 Zofran Injection IVPUSH 4 mg Q6H PRN Administration NAUSEA Pantoprazole Sodium 40 mg 12/15/18 10:00 12/15/18 09:05 Protonix Iv IVPUSH 40 mg DAILY PARESH Administration Prochlorperazine Edisylate 5 mg 12/12/18 08:33 Compazine Injection - IVPB Q4H PRN NAUSEA AND/OR VOMITING ASSESSMENT AND PLAN: 53 year old female with history of HTN presented to the ER with epigastric pain and found to have acute gallstone pancreatitis. 1. Acute Pancreatitis secondary to Gallstones/Choledocholithiasis CT Abdomen - Acute Pancreatitis, Dilated CBD Elevated LFTs (improving), Lipase normalized. MRCP - Gallstone, no CBD dilatation but abrupt cut off - cannot rule out distal CBD stone. s/p ERCP 12/14 - distal stone extraction with stenting Leukocytosis improved, no further fevers. Clinically improved. Analgesia with MS and Antiemetic agents Zofran, Compazine. Resumed on clear liquid diet. Continue IV hydration and IV Zosyn. ID following. Scheduled for lap dami 12/16/18 2. HTN - Continue Lisinopril. 3. Hypophosphatemia/Hypokalemia - repleted. DVT Px - Lovenox SQ (to be held prior to Surgery) GI Px - PPI.
[2018-12-15] MEDS: MORPHINE SULFATE 2 MG/ML VIAL IVPUSH PRN (20:02)
--- NOTE | 2018-12-15 20:10 | PN.GI ---
GI Progress Note Subjective: Patient found laying on her left side weeping. She is complaining of pain "inside". She points towards her flanks. - Objective Vital Signs: Vital Signs Temperature 98.2 F 12/15/18 18:00 Pulse Rate 53 L 12/15/18 18:00 Respiratory Rate 20 12/15/18 18:00 Blood Pressure 152/70 12/15/18 18:00 O2 Sat by Pulse Oximetry (%) 96 12/15/18 09:00 Constitutional: Calm Eyes: No: Sclera Icterus Cardiovascular: Yes: Regular Rate and Rhythm Respiratory: Yes: CTA Bilaterally Gastrointestinal Inspection: No: Distention ...Auscultate: Yes: Normoactive Bowel Sounds ...Palpate: Yes: Soft, Other (No CVA tenderness). No: Tenderness (No mid/ epigastric ttp) ...Percussion: No: Tympanitic Edema: No (No LE edema) Neurological: Yes: Alert Labs: CBC, BMP 12/15/18 06:00 12/15/18 06:00 INR, PTT INR 1.34 (0.83-1.09) H 12/13/18 15:45 Hepatic Panel Total Bilirubin 1.1 mg/dL (0.2-1) H 12/15/18 06:00 Direct Bilirubin 0.7 mg/dL (0.0-0.2) H 12/15/18 06:00 AST 33 U/L (15-37) 12/15/18 06:00 ALT 73 U/L (13-61) H 12/15/18 06:00 Alkaline Phosphatase 123 U/L (45-117) H 12/15/18 06:00 Albumin 2.2 g/dl (3.4-5.0) L 12/15/18 06:00 Problem List - Problems (1) Gallstone pancreatitis Assessment/Plan: S/P ERCP with stone extraction and stent placement Now with vague complaints of pain at flanks. No mid abdominal TTP, no RUQ pain Ordered non contrast CT scan to ea for retroperitoneal free air Code(s): K85.10 - BILIARY ACUTE PANCREATITIS WITHOUT NECROSIS OR INFECTION
[2018-12-15] MEDS: ACETAMINOPHEN 1000 MG/100 ML VIAL (NON FORMULARY) IVPB PRN (22:58)
[2018-12-16] MEDS ORDERED: DEXTROSE 5%-WATER - 50 ML IVPB ONE ×4 (01:05→21:00)
[2018-12-16] MEDS ORDERED: PIPERACILLIN/TAZOBACTAM 3.375 GM VIAL IVPB ONE ×4 (01:05→21:00)
[2018-12-16] MEDS: PIPERACILLIN/TAZOB 3.375 GM 3.375 GM in DEXTROSE 5%-WATER - 50 ML IVPB SCH ×4 (02:33→21:18)
[2018-12-16] MEDS: MORPHINE SULFATE 2 MG/ML VIAL IVPUSH PRN (06:54)
[2018-12-16] MEDS: LACTATED RINGERS SOLUTION 1,000 ML/1,000 ML INFUS.BAG IV SCH ×2 (06:54→15:13)
[2018-12-16 07:35] LABS: BASO % 0.4 % (0-2.0); EOS % 0.6 % (0-4.5); HEMATOCRIT 35.6 % (32.4-45.2); HEMOGLOBIN 11.9 GM/dL (10.7-15.3); MCH 30.2 pg (25.7-33.7); MCHC 33.5 g/dl (32.0-36.0); MEAN CELL VOLUME 90.1 fl (80-96); MEAN PLT VOLUME 8.1 fl (7.5-11.1); MONO % 10.4 % (3.8-10.2); NEUT % 76.6 % (42.8-82.8); PLATELET COUNT 166 K/MM3 (134-434); RBC 3.95 M/mm3 (3.60-5.2); RDW 13.5 % (11.6-15.6); WHITE BLOOD COUNT 9.4 K/mm3 (4.0-10.0)
[2018-12-16 08:18] LABS: ALBUMIN 2.6 g/dl (3.4-5.0); ALK PHOS 205 U/L (45-117); AMYLASE 42 U/L (25-115); ANION GAP 7 MMOL/L (8-16); BILIRUBIN,TOTAL 1.3 mg/dL (0.2-1); BLOOD UREA NITROGEN 7 mg/dL (7-18); CALCIUM 8.5 mg/dL (8.5-10.1); CHLORIDE 109 mmol/L (98-107); CO2 23 mmol/L (21-32); CREATININE 0.8 mg/dL (0.55-1.3); GLUCOSE,RANDOM 91 mg/dL (74-106); LIPASE 145 U/L (73-393); MAGNESIUM 2.1 mg/dL (1.8-2.4); PHOSPHOROUS 2.4 mg/dL (2.5-4.9); POTASSIUM 3.3 mmol/L (3.5-5.1); SGOT/AST 62 U/L (15-37); SGPT/ALT 92 U/L (13-61); SODIUM 139 mmol/L (136-145)
[2018-12-16] MEDS ORDERED: POTASSIUM CHLORIDE 20 MEQ PREMIX IVPB 100 ML IVPB ONE (09:19)
[2018-12-16] MEDS ORDERED: ACETAMINOPHEN 1000 MG/100 ML VIAL (NON FORMULARY) IVPB ONE ×2 (09:45→20:32)
[2018-12-16] MEDS: PANTOPRAZOLE SODIUM 40 MG VIAL IVPUSH SCH (09:56)
[2018-12-16] MEDS: LISINOPRIL 5 MG TABLET (FP) PO SCH (09:58)
[2018-12-16] MEDS: KCL 10 MEQ IVPB 10 MEQ/100 ML INFUS.BAG IVPB SCH ×3 (12:29→22:07)
--- NOTE | 2018-12-16 12:44 | PN.GI ---
GI Progress Note Subjective: CT scan last night failed to reveal free air. Biliary stent appeared to be in position Overall states feeling better Has not had BM as of yet - Objective Vital Signs: Vital Signs Temperature 100.2 F H 12/16/18 06:00 Pulse Rate 74 12/16/18 06:00 Respiratory Rate 20 12/16/18 06:00 Blood Pressure 157/94 12/16/18 06:00 O2 Sat by Pulse Oximetry (%) 96 12/15/18 21:00 Constitutional: Calm Eyes: No: Sclera Icterus Cardiovascular: Yes: Regular Rate and Rhythm Respiratory: No: CTA Bilaterally Gastrointestinal Inspection: No: Distention ...Auscultate: Yes: Normoactive Bowel Sounds ...Palpate: No: Tenderness ...Percussion: No: Tympanitic Edema: No (No LE edema) Neurological: Yes: Alert Labs: CBC, BMP 12/16/18 06:00 12/16/18 06:00 INR, PTT INR 1.34 (0.83-1.09) H 12/13/18 15:45 Hepatic Panel Total Bilirubin 1.3 mg/dL (0.2-1) H 12/16/18 06:00 Direct Bilirubin 0.7 mg/dL (0.0-0.2) H 12/15/18 06:00 AST 62 U/L (15-37) H 12/16/18 06:00 ALT 92 U/L (13-61) H 12/16/18 06:00 Alkaline Phosphatase 205 U/L (45-117) H 12/16/18 06:00 Albumin 2.6 g/dl (3.4-5.0) L 12/16/18 06:00 Problem List - Problems (1) Gallstone pancreatitis Assessment/Plan: Clinically improved S/P ERCP with stone extration and stent placement For Lap Lucia. Timing per surgery Monitor LFTs Advised patient she will need stent removel in 3 months. Advised that she call Dr. Moran's office to arrange follow-up Code(s): K85.10 - BILIARY ACUTE PANCREATITIS WITHOUT NECROSIS OR INFECTION
--- NOTE | 2018-12-16 14:08 | PN ---
Physical Exam: SUBJECTIVE: Patient seen and examined. Pt. states "skin feels tight as if she has some gas." Pt. endorses increased pain in stomach and back. Pt. NPO for OR today. OBJECTIVE: Vital Signs Period Temp Pulse Resp BP Sys/Kellogg Pulse Ox Last 24 Hr 98.2 F-100.2 F 53-74 18-20 135-157/60-94 96 ENERAL: The patient is awake, alert, and fully oriented, in mild distress. HEAD: Normal with no signs of trauma. EYES: sclera anicteric, conjunctiva clear. No ptosis. ENT: Ears normal, nares patent, oropharynx clear without exudates, moist mucous membranes. NECK: Trachea midline, full range of motion, supple. LUNGS: Decreased breath sounds, clear to auscultation bilaterally, no wheezes, no crackles, no accessory muscle use. HEART: Regular rate and rhythm, S1, S2 without murmur ABDOMEN: Soft, decreased tenderness to palpation in epigastrium, nondistended, bowel sounds sluggish, EXTREMITIES: 2+ radial pulses, warm, well-perfused, no calf tenderness, no edema. NEUROLOGICAL: Normal speech, gait not observed. PSYCH: Normal mood, normal affect. SKIN: Warm, dry, normal turgor, no rashes or lesions noted Laboratory Results - last 24 hr 12/16/18 12/16/18 12/16/18 06:00 06:00 06:45 WBC 9.4 RBC 3.95 Hgb 11.9 Hct 35.6 MCV 90.1 MCH 30.2 MCHC 33.5 RDW 13.5 Plt Count 166 D MPV 8.1 Absolute Neuts (auto) 7.2 Neutrophils % 76.6 Lymphocytes % 12.0 D Monocytes % 10.4 H Eosinophils % 0.6 D Basophils % 0.4 Nucleated RBC % 0 Sodium 139 Potassium 3.3 L Chloride 109 H Carbon Dioxide 23 Anion Gap 7 L BUN 7 Creatinine 0.8 Creat Clearance w eGFR 75.32 Random Glucose 91 Calcium 8.5 Phosphorus 2.4 L Magnesium 2.1 Total Bilirubin 1.3 H AST 62 H ALT 92 H Alkaline Phosphatase 205 H Total Protein 6.0 L Albumin 2.6 L Total Amylase 42 Lipase 145 Blood Type A POSITIVE Antibody Screen Negative Home Medications Medication Instructions Recorded Albuterol Sulfate Inhaler - 2 puff PO Q6H PRN 12/12/18 [Ventolin HFA Inhaler -] Lisinopril/Hydrochlorothiazide 1 each PO DAILY 12/12/18 [Zestoretic 10-12.5 mg Tablet] Active Medications Current Medications Albuterol Sulfate (Ventolin Hfa Inhaler -) 2 puff IH Q6H PRN PRN Reason: Dyspnea Piperacillin Sod/Tazobactam (Sod 3.375 gm/ Dextrose) 50 mls @ 100 mls/hr IVPB Q6H-IV [facility]; Protocol Sodium Chloride (Normal Saline -) 1,000 mls @ 100 mls/hr IV ASDIR [facility] Last Admin: 12/17/18 06:30 Dose: 100 mls/hr Piperacillin Sod/Tazobactam (Sod 3.375 gm/ Dextrose) 50 mls @ 100 mls/hr IVPB Q6H-IV [facility]; Protocol Stop: 12/17/18 15:29 Last Admin: 12/17/18 09:15 Dose: 100 mls/hr Lisinopril (Prinivil) 12.5 mg PO DAILY [facility] Last Admin: 12/17/18 09:16 Dose: 12.5 mg Morphine Sulfate (Morphine Sulfate) 4 mg IVPUSH Q4H PRN PRN Reason: PAIN LEVEL 6-10 Ondansetron HCl (Zofran Injection) 4 mg IVPUSH Q6H PRN PRN Reason: NAUSEA Oxycodone HCl (Roxicodone -) 5 mg PO Q4H PRN PRN Reason: PAIN LEVEL 1-5 Oxycodone HCl (Roxicodone -) 10 mg PO Q4H PRN PRN Reason: PAIN LEVEL 6-10 Last Admin: 12/17/18 04:23 Dose: 10 mg Pantoprazole Sodium (Protonix Iv) 40 mg IVPUSH DAILY [facility] Last Admin: 12/17/18 10:35 Dose: 40 mg Prochlorperazine Edisylate (Compazine Injection -) 5 mg IVPB Q4H PRN PRN Reason: NAUSEA AND/OR VOMITING ASSESSMENT/PLAN: 53 yo F, PMH HTN and depression, p/w sudden onset of epigastric pain, n/v x 1 D. Found w/ Lipase >83562, elevated Bili and Transaminitis on labs and + pancreatitis on CT-A/P #Acute Gallstone pancreatitis - resolving Leukocytosis, Lipase >40418, elevated Bili and Transaminitis on labs and + pancreatitis on CTA/P on admission. s/p NS 1L, LR 1L, 4mg morphine X2, zofran, ofirmev in ED CT with no signs of necrotizing pancreatitis, abscess or cyst/pseudocyst, some air in biliary tree but likely caused by ERCP Lipase: 104-->145 IVF GI consult (Antonio) appreciated- Rpt. Abd. CT negative for pancreatic necrosis , abscess or cyst/pseudocyst; decrease mack-pancreatic stranding. Pt. is s/p ERCP (12/11/09)- small stone in distal CBD removed- stent placed. Surgery consult (Abdullahi) for lap lucia when pt. more stable--> Surgery scheduled for 12/16/18@ 3pm with Dr. Valladares c/w IV morphine c/w compazine, D/c Zofran 2/2 QTc of 479 c/w Day 4 of Zosyn started Protonix 40mg IV #Transaminitis- resolving s/p ERCP with stent placement (will need repeat ERCP for stent retrieval) LFTs trending down Hepatitis panel negative trend LFTs #HTN-stable resume home medications. will titrate if necessary to optimize control #FEN c/w LR @ 150 replete prn, Potassium repleted Clear liquids, NPO after midnight #DVT Hold AC for Lap. Lucia. per Surgery #Dispo m/s Visit type - Emergency Visit Emergency Visit: Yes ED Registration Date: 12/11/18 Care time: The patient presented to the Emergency Department on the above date and was hospitalized for further evaluation of their emergent condition. - New Patient This patient is new to me today: No - Critical Care Critical Care patient: No - Discharge Referral Referred to [facility] Med P.C.: No
[2018-12-16] MEDS ORDERED: BUPIVACAINE HCL/PF 0.5% (5MG/ML) 10 ML VIAL ONE (15:21)
[2018-12-16] MEDS ORDERED: KETOROLAC TROMETHAMINE 30 MG/1 ML VIAL ONE (15:51)
[2018-12-16] MEDS ORDERED: LIDOCAINE HCL/PF 2% SDV 5ML VIAL ONE (15:51)
[2018-12-16] MEDS ORDERED: DEXAMETHASONE SOD PHOSPHATE 4 MG/1 ML VIAL ONE (15:51)
[2018-12-16] MEDS ORDERED: PROPOFOL 20 ML ONE (15:53)
[2018-12-16] MEDS ORDERED: MIDAZOLAM HCL 2 MG/2 ML SINGLE DOSE VIAL ONE (15:53)
[2018-12-16] MEDS ORDERED: ROCURONIUM BROMIDE 50 MG/5 ML VIAL ONE (15:53)
[2018-12-16] MEDS ORDERED: SUCCINYLCHOLINE CHLORIDE 200 MG/10 ML VIAL ONE (15:53)
[2018-12-16] MEDS ORDERED: BUPIVACAINE HCL/PF (5 MG/ML) 30 ML VIAL IJ ONE ×2 (16:45)
[2018-12-16] MEDS ORDERED: LABETALOL HCL 5 MG/1 ML (100MG/20 ML VIAL) ONE (16:47)
[2018-12-16] MEDS ORDERED: NEOSTIGMINE METHYLSULFATE 0.5 MG/ML - 10 ML MDV ONE (17:38)
[2018-12-16] MEDS ORDERED: GLYCOPYRROLATE 0.2 MG/1 ML VIAL ONE (17:55)
--- NOTE | 2018-12-16 18:10 | OP ---
Operative Note - Note: Operative Date: 12/16/18 Pre-Operative Diagnosis: cholecystitis Operation: laparoscopic cholecystectomy Findings: Biliary stent found inside the Gall bladder acute cholecystitis Post-Operative Diagnosis: Same as Pre-op Surgeon: Yan Brice Rodeo Clown: Shaista Alberts Anesthesia: General Specimens Removed: Gall bladder and stent Estimated Blood Loss (mls): 25 Drains & Tubes with Location: [facility] Operative Report Dictated: Yes
[2018-12-16] MEDS ORDERED: ONDANSETRON 4 MG/2 ML VIAL IVPUSH PRN ×2 (18:13→19:08)
[2018-12-16] MEDS ORDERED: SODIUM CHLORIDE 1,000 ML IV SCH (18:15)
--- NOTE | 2018-12-16 18:22 | SURG ---
Surgery Tool Machine Setup Operator Note Tool Machine Setup Operator: Shaista Alberts PA-C (Suzy) Date of Service: 12/16/18 Diagnosis: cholecystitis Procedure: laparoscopic cholecystectomy I was present for the entirety of the operative procedure. For further detail, please refer to operative report.
--- NOTE | 2018-12-16 18:26 | PN ---
Teaching Attending Note Name of Resident: Dariusz Mckeon ATTENDING PHYSICIAN STATEMENT I saw and evaluated the patient. I reviewed the resident's note and discussed the case with the resident. I agree with the resident's findings and plan as documented. SUBJECTIVE: Abdominal pain somewhat improved. No nausea/vomiting. No further fevers. No cough/sputum/hemoptysis/diarrhea/melena/hematochezia/dysuria. OBJECTIVE: Low grade fever, Tmax 100.2, Hemodynamically Stable. Last Vital Signs Temp Pulse Resp BP Pulse Ox 98.9 F 65 20 173/84 H 96 12/16/18 15:34 12/16/18 15:34 12/16/18 15:34 12/16/18 15:34 12/15/18 21:00 Heart - S1, S2, RRR Lungs - clear to auscultation. Abdomen - Epigastric and RUQ tenderness improved. Bowel Sounds normal. Extremities - no edema, no calf tenderness. Laboratory Results - last 24 hr 12/16/18 12/16/18 12/16/18 06:00 06:00 06:45 WBC 9.4 RBC 3.95 Hgb 11.9 Hct 35.6 MCV 90.1 MCH 30.2 MCHC 33.5 RDW 13.5 Plt Count 166 D MPV 8.1 Absolute Neuts (auto) 7.2 Neutrophils % 76.6 Lymphocytes % 12.0 D Monocytes % 10.4 H Eosinophils % 0.6 D Basophils % 0.4 Nucleated RBC % 0 Sodium 139 Potassium 3.3 L Chloride 109 H Carbon Dioxide 23 Anion Gap 7 L BUN 7 Creatinine 0.8 Creat Clearance w eGFR 75.32 Random Glucose 91 Calcium 8.5 Phosphorus 2.4 L Magnesium 2.1 Total Bilirubin 1.3 H AST 62 H ALT 92 H Alkaline Phosphatase 205 H Total Protein 6.0 L Albumin 2.6 L Total Amylase 42 Lipase 145 Blood Type A POSITIVE Antibody Screen Negative Current Medications Generic Name Dose Route Start Last Admin Trade Name Freq PRN Reason Stop Dose Admin Albuterol Sulfate 2 puff 12/12/18 15:42 Ventolin Hfa Inhaler - IH Q6H PRN Dyspnea Enoxaparin Sodium 40 mg 12/11/18 17:00 12/15/18 09:08 Lovenox - SQ 40 mg DAILY [facility] Administration Fentanyl 50 mcg 12/16/18 18:13 Sublimaze Injection - IVPUSH 12/17/18 03:00 Q5M PRN PAIN-PACU ORDER X 4 DOSES ONLY Piperacillin Sod/Tazobactam 50 mls @ 100 mls/hr 12/13/18 21:00 12/16/18 15:13 Sod 3.375 gm/ Dextrose IVPB 100 mls/hr Q6H-IV [facility] Administration Protocol Lactated Ringer's 1,000 ml in 1,000 mls @ 150 mls/hr 12/15/18 14:00 12/16/18 15:13 Lactated Ringers Solution IV Not Given ASDIR [facility] Sodium Chloride 1,000 mls @ 100 mls/hr 12/16/18 18:15 Normal Saline - IV ASDIR [facility] Lisinopril 12.5 mg 12/11/18 17:30 12/16/18 09:58 Prinivil PO 12.5 mg DAILY [facility] Administration Morphine Sulfate 4 mg 12/11/18 16:54 12/16/18 06:54 Morphine Sulfate IVPUSH 4 mg Q4H PRN Administration PAIN LEVEL 6-10 Ondansetron HCl 4 mg 12/11/18 16:58 12/11/18 22:55 Zofran Injection IVPUSH 4 mg Q6H PRN Administration NAUSEA Ondansetron HCl 4 mg 12/16/18 18:13 Zofran Injection IVPUSH Q6H PRN NAUSEA AND/OR VOMITING Pantoprazole Sodium 40 mg 12/15/18 10:00 12/16/18 09:56 Protonix Iv IVPUSH 40 mg DAILY [facility] Administration Prochlorperazine Edisylate 5 mg 12/12/18 08:33 Compazine Injection - IVPB Q4H PRN NAUSEA AND/OR VOMITING ASSESSMENT AND PLAN: 53 year old female with history of HTN presented to the ER with epigastric pain and found to have acute gallstone pancreatitis. 1. Acute Pancreatitis secondary to Gallstones/Choledocholithiasis CT Abdomen - Acute Pancreatitis, Dilated CBD Elevated LFTs (improving), Lipase normalized. MRCP - Gallstone, no CBD dilatation but abrupt cut off - unable to rule out distal CBD stone. s/p ERCP 12/14 - distal stone extraction with stenting Leukocytosis improved, low grade fever 100.2. Scheduled for Chlecystectomy today. Continue IV hydration and IV Zosyn. ID following. Analgesia with MS and Antiemetic agents Zofran, Compazine. 2. HTN - Continue Lisinopril. 3. Hypophosphatemia - repleted. DVT Px - Lovenox SQ to be resumed after surgery GI Px - PPI.
[2018-12-16] MEDS ORDERED: POTASSIUM PHOSPHATE 15 MM in SODIUM CHLORIDE 250 ML IVPB ONE (18:27)
[2018-12-16] MEDS ORDERED: oxyCODONE HCL 5 MG TABLET PO PRN (19:08)
[2018-12-16] MEDS ORDERED: ALBUTEROL SO4 8 GM HFA INHALER IH PRN (19:08)
[2018-12-16] MEDS ORDERED: MORPHINE SULFATE 2 MG/ML VIAL IVPUSH PRN (19:08)
[2018-12-16] MEDS ORDERED: PROCHLORPERAZINE INJECTION 10 MG/2 ML VIAL IVPB PRN (19:08)
[2018-12-16] MEDS ORDERED: ACETAMINOPHEN INJECTION 100 ML IVPB ONE (20:31)
[2018-12-16] MEDS: SODIUM CHLORIDE 1,000 ML IV SCH (22:28)
[2018-12-17] MEDS: oxyCODONE HCL 5 MG TABLET PO PRN ×3 (00:17→18:20)
[2018-12-17] MEDS ORDERED: PIPERACILLIN/TAZOBACTAM 3.375 GM VIAL IVPB ONE ×4 (00:27→20:42)
[2018-12-17] MEDS ORDERED: DEXTROSE 5%-WATER - 50 ML IVPB ONE ×4 (00:27→20:42)
[2018-12-17] MEDS: PIPERACILLIN/TAZOB 3.375 GM 3.375 GM in DEXTROSE 5%-WATER - 50 ML IVPB SCH ×4 (02:28→21:08)
[2018-12-17] MEDS: SODIUM CHLORIDE 1,000 ML IV SCH (06:30)
[2018-12-17 08:09] LABS: BASO % 0.1 % (0-2.0); HEMATOCRIT 33.4 % (32.4-45.2); HEMOGLOBIN 11.2 GM/dL (10.7-15.3); LYMPH % 9.5 % (8-40); MCH 30.5 pg (25.7-33.7); MCHC 33.5 g/dl (32.0-36.0); MEAN CELL VOLUME 90.9 fl (80-96); MEAN PLT VOLUME 8.1 fl (7.5-11.1); MONO % 7.3 % (3.8-10.2); NEUT % 83.1 % (42.8-82.8); PLATELET COUNT 156 K/MM3 (134-434); RBC 3.67 M/mm3 (3.60-5.2); RDW 13.7 % (11.6-15.6)
[2018-12-17 08:37] LABS: ALBUMIN 2.2 g/dl (3.4-5.0); ALK PHOS 232 U/L (45-117); AMYLASE 29 U/L (25-115); ANION GAP 8 MMOL/L (8-16); BILIRUBIN,TOTAL 0.9 mg/dL (0.2-1); BLOOD UREA NITROGEN 10 mg/dL (7-18); CALCIUM 8.3 mg/dL (8.5-10.1); CHLORIDE 110 mmol/L (98-107); CO2 22 mmol/L (21-32); CREATININE 0.7 mg/dL (0.55-1.3); GLUCOSE,RANDOM 103 mg/dL (74-106); LIPASE 91 U/L (73-393); MAGNESIUM 2.2 mg/dL (1.8-2.4); PHOSPHOROUS 4.6 mg/dL (2.5-4.9); SGOT/AST 108 U/L (15-37); SGPT/ALT 117 U/L (13-61); SODIUM 139 mmol/L (136-145); TOT PROT 5.4 g/dl (6.4-8.2)
[2018-12-17] MEDS: LISINOPRIL 5 MG TABLET (FP) PO SCH (09:16)
--- NOTE | 2018-12-17 09:22 | PN ---
Progress Note (short form) - Note Progress Note: POD #1 - s/p laparoscopic cholecystectomy under GA. VSS. Pt. doing well, resting comfortably in bed. No complaints. No apparent anesthetic complications noted. Continue current care.
[2018-12-17] MEDS: PANTOPRAZOLE SODIUM 40 MG VIAL IVPUSH SCH (10:35)
--- NOTE | 2018-12-17 13:21 | PN ---
Physical Exam: SUBJECTIVE: Patient seen and examined. Pt. states that she feels better, she denies abdominal pain but endorses soreness in the area. Pt. voiding without difficulty. Pt. has not passed gas or stool. OBJECTIVE: Vital Signs Period Temp Pulse Resp BP Sys/Kellogg Pulse Ox Last 24 Hr 97.9 F-100.6 F 45-76 16-29 132-173/71-96 94-96 ENERAL: The patient is awake, alert, and fully oriented, in mild distress. HEAD: Normal with no signs of trauma. EYES: sclera anicteric, conjunctiva clear. No ptosis. ENT: Ears normal, nares patent, oropharynx clear without exudates, moist mucous membranes. NECK: Trachea midline, full range of motion, supple. LUNGS: Decreased breath sounds, clear to auscultation bilaterally, no wheezes, no crackles, no accessory muscle use. HEART: Regular rate and rhythm, S1, S2 without murmur ABDOMEN: Soft, "soreness" to palpation in epigastrium, nondistended, bowel sounds sluggish, EXTREMITIES: 2+ radial pulses, warm, well-perfused, no calf tenderness, no edema. NEUROLOGICAL: Normal speech, gait not observed. PSYCH: Normal mood, normal affect. SKIN: Warm, dry, normal turgor, no rashes or lesions noted Laboratory Results - last 24 hr 12/17/18 12/17/18 07:30 07:30 WBC 9.0 RBC 3.67 Hgb 11.2 Hct 33.4 MCV 90.9 MCH 30.5 MCHC 33.5 RDW 13.7 Plt Count 156 MPV 8.1 Absolute Neuts (auto) 7.5 Neutrophils % 83.1 H Lymphocytes % 9.5 D Monocytes % 7.3 Eosinophils % 0.0 D Basophils % 0.1 Nucleated RBC % 0 Sodium 139 Potassium 4.0 Chloride 110 H Carbon Dioxide 22 Anion Gap 8 BUN 10 Creatinine 0.7 Creat Clearance w eGFR 87.87 Random Glucose 103 Calcium 8.3 L Phosphorus 4.6 Magnesium 2.2 Total Bilirubin 0.9 AST 108 H ALT 117 H Alkaline Phosphatase 232 H Total Protein 5.4 L Albumin 2.2 L Total Amylase 29 Lipase 91 Active Medications Home Medications Medication Instructions Recorded Albuterol Sulfate Inhaler - 2 puff PO Q6H PRN 12/12/18 [Ventolin HFA Inhaler -] Lisinopril/Hydrochlorothiazide 1 each PO DAILY 12/12/18 [Zestoretic 10-12.5 mg Tablet] Current Medications Albuterol Sulfate (Ventolin Hfa Inhaler -) 2 puff IH Q6H PRN PRN Reason: Dyspnea Piperacillin Sod/Tazobactam (Sod 3.375 gm/ Dextrose) 50 mls @ 100 mls/hr IVPB Q6H-IV [facility]; Protocol Piperacillin Sod/Tazobactam (Sod 3.375 gm/ Dextrose) 50 mls @ 100 mls/hr IVPB Q6H-IV [facility]; Protocol Stop: 12/17/18 15:29 Last Admin: 12/17/18 09:15 Dose: 100 mls/hr Lactated Ringer's (Lactated Ringers Solution) 1,000 ml in 1,000 mls @ 100 mls/ hr IV ASDIR [facility] Lisinopril (Prinivil) 12.5 mg PO DAILY [facility] Last Admin: 12/17/18 09:16 Dose: 12.5 mg Morphine Sulfate (Morphine Sulfate) 4 mg IVPUSH Q4H PRN PRN Reason: PAIN LEVEL 6-10 Ondansetron HCl (Zofran Injection) 4 mg IVPUSH Q6H PRN PRN Reason: NAUSEA Oxycodone HCl (Roxicodone -) 5 mg PO Q4H PRN PRN Reason: PAIN LEVEL 1-5 Oxycodone HCl (Roxicodone -) 10 mg PO Q4H PRN PRN Reason: PAIN LEVEL 6-10 Last Admin: 12/17/18 04:23 Dose: 10 mg Pantoprazole Sodium (Protonix Iv) 40 mg IVPUSH DAILY [facility] Last Admin: 12/17/18 10:35 Dose: 40 mg Prochlorperazine Edisylate (Compazine Injection -) 5 mg IVPB Q4H PRN PRN Reason: NAUSEA AND/OR VOMITING ASSESSMENT/PLAN: 53 yo F, PMH HTN and depression, p/w sudden onset of epigastric pain, n/v x 1 D. Found w/ Lipase >48359, elevated Bili and Transaminitis on labs and + pancreatitis on CT-A/P #Acute Gallstone pancreatitis - resolving Leukocytosis, Lipase >63528, elevated Bili and Transaminitis on labs and + pancreatitis on CT-A/P on admission. Abd. CT (12/15/18) with no signs of necrotizing pancreatitis, abscess or cyst/ pseudocyst, some air in biliary tree but likely caused by ERCP POD # 1- Pt. had gallbladder removed, biliary stent found in gallbladder, [facility] draining ~160ml of serosanguinous fluid total. Lipase: 145-->91; TBili:1.3--> 0.9 IVF GI consult (Antonio) appreciated- Rpt. Abd. CT negative for pancreatic necrosis , abscess or cyst/pseudocyst; decrease mack-pancreatic stranding. Pt. is s/p ERCP (12/11/09)- small stone in distal CBD removed- stent placed. Surgery consult (Bradly) appreciated--> Dr. Valladares c/w IV morphine c/w compazine, D/c Zofran 2/2 QTc of 479 c/w Day 5 of Zosyn c/w Protonix 40mg IV #Transaminitis- resolving s/p ERCP with stent placement --> Stent removed during cholecystectomy as it had migrated into the gallbladder, no documentation of stent fragmentation. LFTs stable Hepatitis panel negative c/w trending LFTs #HTN-stable resume home medications. will titrate if necessary to optimize control #FEN switched to LR @ 100 from NS @ 100 because of rising chloride (110) replete prn, Potassium repleted Diet advanced to clear liquids as tolerated #DVT Hold AC pending surgery recommendations to resume TEDs pending SCD set up #Dispo m/s Visit type - Emergency Visit Emergency Visit: Yes ED Registration Date: 12/11/18 Care time: The patient presented to the Emergency Department on the above date and was hospitalized for further evaluation of their emergent condition. - New Patient This patient is new to me today: No - Critical Care Critical Care patient: No
--- NOTE | 2018-12-17 13:32 | PN ---
Teaching Attending Note Name of Resident: Dariusz Mckeon ATTENDING PHYSICIAN STATEMENT I saw and evaluated the patient. I reviewed the resident's note and discussed the case with the resident. I agree with the resident's findings and plan as documented. SUBJECTIVE: Abdominal pain improving post-op. Tolerating clear liquid diet. No nausea/vomiting. No further fevers. No cough/sputum/hemoptysis/diarrhea/melena/ hematochezia/dysuria. OBJECTIVE: Afebrile, Hemodynamically Stable. Last Vital Signs Temp Pulse Resp BP Pulse Ox 98.1 F 52 L 18 148/71 94 L 12/17/18 08:57 12/17/18 08:57 12/17/18 08:57 12/17/18 08:57 12/16/18 22:00 Heart - S1, S2, RRR Lungs - clear to auscultation. Abdomen - Epigastric and RUQ tenderness improved. Surgical sites clean. [facility] drain in situ. Bowel Sounds normal. Extremities - no edema, no calf tenderness. Laboratory Results - last 24 hr 12/17/18 12/17/18 07:30 07:30 WBC 9.0 RBC 3.67 Hgb 11.2 Hct 33.4 MCV 90.9 MCH 30.5 MCHC 33.5 RDW 13.7 Plt Count 156 MPV 8.1 Absolute Neuts (auto) 7.5 Neutrophils % 83.1 H Lymphocytes % 9.5 D Monocytes % 7.3 Eosinophils % 0.0 D Basophils % 0.1 Nucleated RBC % 0 Sodium 139 Potassium 4.0 Chloride 110 H Carbon Dioxide 22 Anion Gap 8 BUN 10 Creatinine 0.7 Creat Clearance w eGFR 87.87 Random Glucose 103 Calcium 8.3 L Phosphorus 4.6 Magnesium 2.2 Total Bilirubin 0.9 AST 108 H ALT 117 H Alkaline Phosphatase 232 H Total Protein 5.4 L Albumin 2.2 L Total Amylase 29 Lipase 91 Current Medications Generic Name Dose Route Start Last Admin Trade Name Freq PRN Reason Stop Dose Admin Albuterol Sulfate 2 puff 12/16/18 19:08 Ventolin Hfa Inhaler - IH Q6H PRN Dyspnea Piperacillin Sod/Tazobactam 50 mls @ 100 mls/hr 12/16/18 21:00 Sod 3.375 gm/ Dextrose IVPB Q6H-IV [facility] Protocol Sodium Chloride 1,000 mls @ 100 mls/hr 12/16/18 19:08 04/13/19 06:30 Normal Saline - IV 100 mls/hr ASDIR [facility] Administration Piperacillin Sod/Tazobactam 50 mls @ 100 mls/hr 12/16/18 21:00 12/17/18 09:15 Sod 3.375 gm/ Dextrose IVPB 12/17/18 15:29 100 mls/hr Q6H-IV [facility] Administration Protocol Lisinopril 12.5 mg 12/17/18 10:00 12/17/18 09:16 Prinivil PO 12.5 mg DAILY [facility] Administration Morphine Sulfate 4 mg 12/16/18 19:08 Morphine Sulfate IVPUSH Q4H PRN PAIN LEVEL 6-10 Ondansetron HCl 4 mg 12/16/18 19:08 Zofran Injection IVPUSH Q6H PRN NAUSEA Oxycodone HCl 5 mg 12/16/18 19:08 Roxicodone - PO Q4H PRN PAIN LEVEL 1-5 Oxycodone HCl 10 mg 12/16/18 19:08 12/17/18 04:23 Roxicodone - PO 10 mg Q4H PRN Administration PAIN LEVEL 6-10 Pantoprazole Sodium 40 mg 12/17/18 10:00 12/17/18 10:35 Protonix Iv IVPUSH 40 mg DAILY [facility] Administration Prochlorperazine Edisylate 5 mg 12/16/18 19:08 Compazine Injection - IVPB Q4H PRN NAUSEA AND/OR VOMITING ASSESSMENT AND PLAN: 53 year old female with history of HTN presented to the ER with epigastric pain and found to have acute gallstone pancreatitis. 1. Acute Pancreatitis secondary to Gallstones/Choledocholithiasis CT Abdomen - Acute Pancreatitis, Dilated CBD Elevated LFTs (improving), Lipase normalized. MRCP - Gallstone, no CBD dilatation but abrupt cut off - unable to rule out distal CBD stone. s/p ERCP 12/14 - distal stone extraction with stenting POD 1 s/p Cholecystectomy - some elevation in ALT/AST post-op, Bili normal. Afebrile. Continue IV hydration and IV Zosyn. Duration of Abx and diet advancement as per Surgery. Analgesia with Oxycodone/MS and Antiemetic agents Zofran, Compazine. 2. HTN - Continue Lisinopril. 3. Hypophosphatemia - repleted. DVT Px - SCDs. Lovenox SQ to be resumed once Surgery allows. GI Px - PPI.
[2018-12-17] MEDS ORDERED: LACTATED RINGERS SOLUTION 1,000 ML/1,000 ML INFUS.BAG IV SCH (13:45)
--- NOTE | 2018-12-17 15:53 | PN ---
Progress Note, Physician History of Present Illness: s/p lap dami feeling well with exception for incisional pain - Current Medication List Current Medications: Active Medications Albuterol Sulfate (Ventolin Hfa Inhaler -) 2 puff IH Q6H PRN PRN Reason: Dyspnea Piperacillin Sod/Tazobactam (Sod 3.375 gm/ Dextrose) 50 mls @ 100 mls/hr IVPB Q6H-IV [facility]; Protocol Last Admin: 12/17/18 14:55 Dose: 100 mls/hr Lactated Ringer's (Lactated Ringers Solution) 1,000 ml in 1,000 mls @ 100 mls/ hr IV ASDIR [facility] Lisinopril (Prinivil) 12.5 mg PO DAILY [facility] Last Admin: 12/17/18 09:16 Dose: 12.5 mg Morphine Sulfate (Morphine Sulfate) 4 mg IVPUSH Q4H PRN PRN Reason: PAIN LEVEL 6-10 Ondansetron HCl (Zofran Injection) 4 mg IVPUSH Q6H PRN PRN Reason: NAUSEA Oxycodone HCl (Roxicodone -) 5 mg PO Q4H PRN PRN Reason: PAIN LEVEL 1-5 Oxycodone HCl (Roxicodone -) 10 mg PO Q4H PRN PRN Reason: PAIN LEVEL 6-10 Last Admin: 12/17/18 04:23 Dose: 10 mg Pantoprazole Sodium (Protonix Iv) 40 mg IVPUSH DAILY [facility] Last Admin: 12/17/18 10:35 Dose: 40 mg Prochlorperazine Edisylate (Compazine Injection -) 5 mg IVPB Q4H PRN PRN Reason: NAUSEA AND/OR VOMITING - Objective Vital Signs: Vital Signs Temperature 98.4 F 12/17/18 14:13 Pulse Rate 67 12/17/18 14:13 Respiratory Rate 22 H 12/17/18 14:13 Blood Pressure 163/79 12/17/18 14:13 O2 Sat by Pulse Oximetry (%) 94 L 12/17/18 09:00 Gastrointestinal: Yes: Other (incisions clean and dry , [facility] serosanguinous) Labs: CBC, BMP 12/17/18 07:30 12/17/18 07:30 INR, PTT INR 1.34 (0.83-1.09) H 12/13/18 15:45 Problem List - Problems (1) Common bile duct (CBD) obstruction Code(s): K83.1 - OBSTRUCTION OF BILE DUCT (2) Gallstone pancreatitis Code(s): K85.10 - BILIARY ACUTE PANCREATITIS WITHOUT NECROSIS OR INFECTION Assessment/Plan s/p lap dami and stent removed because it was in the Galll bladder stable but LFTs up trending from before surgery Advance diet and follow LFTs
[2018-12-18] MEDS ORDERED: PIPERACILLIN/TAZOBACTAM 3.375 GM VIAL IVPB ONE ×4 (01:40→21:14)
[2018-12-18] MEDS ORDERED: DEXTROSE 5%-WATER - 50 ML IVPB ONE ×4 (01:40→21:14)
[2018-12-18] MEDS: oxyCODONE HCL 5 MG TABLET PO PRN ×3 (01:52→19:40)
[2018-12-18] MEDS: PIPERACILLIN/TAZOB 3.375 GM 3.375 GM in DEXTROSE 5%-WATER - 50 ML IVPB SCH ×5 (02:17→21:50)
[2018-12-18 07:33] LABS: BASO % 0.9 % (0-2.0); EOS % 1.2 % (0-4.5); HEMATOCRIT 32.8 % (32.4-45.2); HEMOGLOBIN 11.2 GM/dL (10.7-15.3); LYMPH % 19.2 % (8-40); MCH 31.4 pg (25.7-33.7); MCHC 34.3 g/dl (32.0-36.0); MEAN CELL VOLUME 91.8 fl (80-96); MEAN PLT VOLUME 8.6 fl (7.5-11.1); MONO % 8.9 % (3.8-10.2); NEUT % 69.8 % (42.8-82.8); PLATELET COUNT 201 K/MM3 (134-434); RBC 3.57 M/mm3 (3.60-5.2); RDW 13.5 % (11.6-15.6); WHITE BLOOD COUNT 8.9 K/mm3 (4.0-10.0)
[2018-12-18 07:58] LABS: ALBUMIN 2.2 g/dl (3.4-5.0); ALK PHOS 206 U/L (45-117); ANION GAP 6 MMOL/L (8-16); BILIRUBIN,TOTAL 0.6 mg/dL (0.2-1); BLOOD UREA NITROGEN 9 mg/dL (7-18); CALCIUM 7.7 mg/dL (8.5-10.1); CHLORIDE 110 mmol/L (98-107); CO2 26 mmol/L (21-32); CREATININE 0.8 mg/dL (0.55-1.3); GLUCOSE,RANDOM 89 mg/dL (74-106); PHOSPHOROUS 2.5 mg/dL (2.5-4.9); POTASSIUM 3.6 mmol/L (3.5-5.1); SGOT/AST 63 U/L (15-37); SGPT/ALT 105 U/L (13-61); SODIUM 142 mmol/L (136-145); TOT PROT 5.3 g/dl (6.4-8.2)
[2018-12-18] MEDS: LISINOPRIL 5 MG TABLET (FP) PO SCH (10:19)
[2018-12-18] MEDS: PANTOPRAZOLE SODIUM 40 MG VIAL IVPUSH SCH (10:19)
[2018-12-18 11:24] LABS: ANISOCYTOSIS 0; MACROCYTOSIS 0; PLATELET ESTIMATE NORMAL
[2018-12-18] MEDS ORDERED: PT OWN MED DRAWER 7, Y5N ONE (12:59)
--- NOTE | 2018-12-18 16:48 | PN ---
Progress Note (short form) - Note Progress Note: SUBJECTIVE: Abdominal pain improving post-op. Tolerating regular liquid diet. No nausea/vomiting. No further fevers. OBJECTIVE: Afebrile, Hemodynamically Stable. Tmax 99 Last Vital Signs Temp Pulse Resp BP Pulse Ox 99.8 F H 66 20 160/88 100 12/18/18 14:02 12/18/18 14:02 12/18/18 14:02 12/18/18 14:02 12/18/18 10:20 Heart - S1, S2, RRR Lungs - clear to auscultation. Abdomen - Epigastric and RUQ tenderness improved. Surgical sites clean. ASHLEIGH drain in situ. Bowel Sounds normal. Extremities - no edema, no calf tenderness. Laboratory Results - last 24 hr 12/18/18 12/18/18 05:21 05:21 WBC 8.9 RBC 3.57 L Hgb 11.2 Hct 32.8 MCV 91.8 MCH 31.4 MCHC 34.3 RDW 13.5 Plt Count 201 D MPV 8.6 Absolute Neuts (auto) 6.2 Neutrophils % 69.8 Neutrophils % (Manual) 66.7 Band Neutrophils % 0.0 Lymphocytes % 19.2 D Lymphocytes % (Manual) 23.2 Monocytes % 8.9 Monocytes % (Manual) 8 Eosinophils % 1.2 D Eosinophils % (Manual) 0.0 Basophils % 0.9 D Basophils % (Manual) 0.0 Myelocytes % (Man) 1 Promyelocytes % (Man) 0 Blast Cells % (Manual) 0 Nucleated RBC % 0 Metamyelocytes 1 Hypochromia 0 Platelet Estimate Normal Polychromasia 1+ Poikilocytosis 0 Anisocytosis 0 Microcytosis 0 Macrocytosis 0 Sodium 142 Potassium 3.6 Chloride 110 H Carbon Dioxide 26 Anion Gap 6 L BUN 9 Creatinine 0.8 Creat Clearance w eGFR 75.32 Random Glucose 89 Calcium 7.7 L Phosphorus 2.5 Magnesium 2.0 Total Bilirubin 0.6 AST 63 H ALT 105 H Alkaline Phosphatase 206 H Total Protein 5.3 L Albumin 2.2 L Current Medications Generic Name Dose Route Start Last Admin Trade Name Freq PRN Reason Stop Dose Admin Albuterol Sulfate 2 puff 12/16/18 19:08 Ventolin Hfa Inhaler - IH Q6H PRN Dyspnea Piperacillin Sod/Tazobactam 50 mls @ 100 mls/hr 12/17/18 15:00 12/18/18 15:56 Sod 3.375 gm/ Dextrose IVPB 100 mls/hr Q6H-IV PARESH Administration Protocol Lactated Ringer's 1,000 ml in 1,000 mls @ 100 mls/hr 12/17/18 13:45 12/17/18 16:36 Lactated Ringers Solution IV 100 mls/hr ASDIR PARESH Administration Lisinopril 12.5 mg 12/17/18 10:00 12/18/18 10:19 Prinivil PO 12.5 mg DAILY PARESH Administration Morphine Sulfate 4 mg 12/16/18 19:08 Morphine Sulfate IVPUSH Q4H PRN PAIN LEVEL 6-10 Ondansetron HCl 4 mg 12/16/18 19:08 Zofran Injection IVPUSH Q6H PRN NAUSEA Oxycodone HCl 5 mg 12/16/18 19:08 Roxicodone - PO Q4H PRN PAIN LEVEL 1-5 Oxycodone HCl 10 mg 12/16/18 19:08 12/18/18 07:50 Roxicodone - PO 10 mg Q4H PRN Administration PAIN LEVEL 6-10 Pantoprazole Sodium 40 mg 12/17/18 10:00 12/18/18 10:19 Protonix Iv IVPUSH 40 mg DAILY PARESH Administration Prochlorperazine Edisylate 5 mg 12/16/18 19:08 Compazine Injection - IVPB Q4H PRN NAUSEA AND/OR VOMITING ASSESSMENT AND PLAN: 53 year old female with history of HTN presented to the ER with epigastric pain and found to have acute gallstone pancreatitis. 1. Acute Pancreatitis secondary to Gallstones/Choledocholithiasis CT Abdomen - Acute Pancreatitis, Dilated CBD Elevated LFTs (improving), Lipase normalized. MRCP - Gallstone, no CBD dilatation but abrupt cut off - unable to rule out distal CBD stone. s/p ERCP 12/14 - distal stone extraction with stenting POD 2 s/p Cholecystectomy - some elevation in ALT/AST post-op, now trending down , Bili normal. Afebrile. Continue IV Zosyn. Duration of Abx and timing of ASHLEIGH drain removal as per Surgery. Analgesia with Oxycodone/MS and Antiemetic agents Zofran, Compazine. 2. HTN - Continue Lisinopril. 3. Hypophosphatemia - repleted. DVT Px - SCDs. Lovenox SQ to be resumed once Surgery allows. GI Px - PPI. Visit type - Emergency Visit Emergency Visit: Yes ED Registration Date: 12/11/18 Care time: The patient presented to the Emergency Department on the above date and was hospitalized for further evaluation of their emergent condition. - New Patient This patient is new to me today: No - Critical Care Critical Care patient: No - Discharge Referral Referred to [facility] Med P[facility].: No
[2018-12-19] MEDS ORDERED: PIPERACILLIN/TAZOBACTAM 3.375 GM VIAL IVPB ONE ×3 (00:49→15:47)
[2018-12-19] MEDS ORDERED: DEXTROSE 5%-WATER - 50 ML IVPB ONE ×3 (00:49→15:47)
[2018-12-19] MEDS: PIPERACILLIN/TAZOB 3.375 GM 3.375 GM in DEXTROSE 5%-WATER - 50 ML IVPB SCH ×3 (04:07→15:56)
--- NOTE | 2018-12-19 08:03 | PN ---
Progress Note (short form) - Note Progress Note: Pt seen and examined. Reports she did "okay" over the weekend. Pain has been " up and down". Tolerating PO. Voiding without issue. No BM, passing flatus. Denies cp/sob, n/v/d. Vital Signs Temp 98.5 F 12/19/18 10:52 Pulse 69 12/19/18 10:52 Resp 20 12/19/18 10:52 BP 147/96 12/19/18 10:52 Pulse Ox 100 12/18/18 21:00 Intake & Output 12/18/18 12/19/18 12/19/18 23:59 11:59 23:59 Intake Total 1545 50 Output Total 50 Balance 1495 50 Intake: IV 700 LACTATED RINGERS SOLUTION 700 1,000 ml In 1,000 ml @ 100 mls/hr IV ASDIR PARESH Rx#:[id number] IVPB 50 50 Oral 795 Output: Drainage 50 Right Upper Abdomen 50 Other: Voiding Method Toilet Toilet # Unmeasured Voids Void 1 Bowel Movement No Body Mass Index (BMI) 33.5 CBC, BMP 12/19/18 08:50 12/19/18 08:50 Gen: awake, alert, nad Resp: unlabored on RA Abdo: soft, minimal ttp around incisions, no rebound, no gaurding, no distention. Ext: b/l calves soft, nt A/P: 53 y/o F w/ PMHx HTN and depression, admitted 12/11 w/ sudden onset of epigastric pain, n/v/suspected acute gallstone pancreatitis, now s/p ERCP on which revealed a small distal CBD stone (removed) and stent placement, now POD 3, s/p laparoscopic cholecystectomy w/ Biliary stent found inside the Gall bladder. Afebrile, VSS Labs stable, LFTS trending down, no leukocytosis P: ASHLEIGH drain removed (taken off suction and removed without issue) Pain control Remainder of care per medical team Pt should f/u in 1 week d/w attending Dr Valladares
[2018-12-19 09:04] LABS: BASO % 0.6 % (0-2.0); EOS % 2.1 % (0-4.5); HEMATOCRIT 38.2 % (32.4-45.2); MCH 30.5 pg (25.7-33.7); MEAN CELL VOLUME 89.7 fl (80-96); MEAN PLT VOLUME 7.7 fl (7.5-11.1); MONO % 9.1 % (3.8-10.2); NEUT % 70.2 % (42.8-82.8); PLATELET COUNT 261 K/MM3 (134-434); RBC 4.26 M/mm3 (3.60-5.2); RDW 13.4 % (11.6-15.6); WHITE BLOOD COUNT 8.3 K/mm3 (4.0-10.0)
[2018-12-19] MEDS ORDERED: ACETAMINOPHEN 325 MG TABLET (FP) PO PRN (09:16)
[2018-12-19 09:28] LABS: ALBUMIN 2.6 g/dl (3.4-5.0); ALK PHOS 224 U/L (45-117); ANION GAP 7 MMOL/L (8-16); BILIRUBIN,TOTAL 0.7 mg/dL (0.2-1); BLOOD UREA NITROGEN 8 mg/dL (7-18); CALCIUM 8.8 mg/dL (8.5-10.1); CHLORIDE 106 mmol/L (98-107); CO2 24 mmol/L (21-32); CREATININE 0.9 mg/dL (0.55-1.3); GLUCOSE,RANDOM 130 mg/dL (74-106); POTASSIUM 3.3 mmol/L (3.5-5.1); SGOT/AST 45 U/L (15-37); SGPT/ALT 101 U/L (13-61); SODIUM 137 mmol/L (136-145); TOT PROT 6.4 g/dl (6.4-8.2)
[2018-12-19] MEDS ORDERED: POTASSIUM CHLORIDE ORAL LIQUID 20 MEQ/15 ML PO ONE (10:26)
[2018-12-19] MEDS: PANTOPRAZOLE SODIUM 40 MG VIAL IVPUSH SCH (11:04)
[2018-12-19] MEDS: LISINOPRIL 5 MG TABLET (FP) PO SCH (11:04)
--- NOTE | 2018-12-19 12:56 | PN ---
Teaching Attending Note Name of Resident: Dariusz Mckeon ATTENDING PHYSICIAN STATEMENT I saw and evaluated the patient. I reviewed the resident's note and discussed the case with the resident. I agree with the resident's findings and plan as documented. SUBJECTIVE: Abdominal pain improving post-op. Tolerating regular diet. No nausea /vomiting. No further fevers. OBJECTIVE: Afebrile, Hemodynamically Stable. Last Vital Signs Temp Pulse Resp BP Pulse Ox 98.5 F 69 20 147/96 100 12/19/18 10:52 12/19/18 10:52 12/19/18 10:52 12/19/18 10:52 12/18/18 21:00 Heart - S1, S2, RRR Lungs - clear to auscultation. Abdomen - Epigastric and RUQ tenderness much improved. Surgical sites clean. ASHLEIGH drain in situ. Bowel Sounds normal. Extremities - no edema, no calf tenderness. Laboratory Results - last 24 hr 12/19/18 12/19/18 08:50 08:50 WBC 8.3 RBC 4.26 Hgb 13.0 Hct 38.2 D MCV 89.7 MCH 30.5 MCHC 34.0 RDW 13.4 Plt Count 261 D MPV 7.7 D Absolute Neuts (auto) 5.8 Neutrophils % 70.2 Lymphocytes % 18.0 Monocytes % 9.1 Eosinophils % 2.1 Basophils % 0.6 Nucleated RBC % 0 Sodium 137 Potassium 3.3 L Chloride 106 Carbon Dioxide 24 Anion Gap 7 L BUN 8 Creatinine 0.9 Creat Clearance w eGFR 65.75 Random Glucose 130 H Calcium 8.8 Total Bilirubin 0.7 AST 45 H ALT 101 H Alkaline Phosphatase 224 H Total Protein 6.4 Albumin 2.6 L Current Medications Generic Name Dose Route Start Last Admin Trade Name Freq PRN Reason Stop Dose Admin Acetaminophen 650 mg 12/19/18 09:16 Tylenol - PO Q6H PRN PAIN Albuterol Sulfate 2 puff 12/16/18 19:08 Ventolin Hfa Inhaler - IH Q6H PRN Dyspnea Piperacillin Sod/Tazobactam 50 mls @ 100 mls/hr 12/17/18 15:00 12/19/18 11:04 Sod 3.375 gm/ Dextrose IVPB 100 mls/hr Q6H-IV PARESH Administration Protocol Lisinopril 12.5 mg 12/17/18 10:00 12/19/18 11:04 Prinivil PO 12.5 mg DAILY PARESH Administration Morphine Sulfate 4 mg 12/16/18 19:08 Morphine Sulfate IVPUSH Q4H PRN PAIN LEVEL 6-10 Ondansetron HCl 4 mg 12/16/18 19:08 Zofran Injection IVPUSH Q6H PRN NAUSEA Oxycodone HCl 5 mg 12/16/18 19:08 Roxicodone - PO Q4H PRN PAIN LEVEL 1-5 Oxycodone HCl 10 mg 12/16/18 19:08 12/18/18 19:40 Roxicodone - PO 10 mg Q4H PRN Administration PAIN LEVEL 6-10 Pantoprazole Sodium 40 mg 12/17/18 10:00 12/19/18 11:04 Protonix Iv IVPUSH 40 mg DAILY PARESH Administration Prochlorperazine Edisylate 5 mg 12/16/18 19:08 Compazine Injection - IVPB Q4H PRN NAUSEA AND/OR VOMITING ASSESSMENT AND PLAN: 53 year old female with history of HTN presented to the ER with epigastric pain and found to have acute gallstone pancreatitis. 1. Acute Pancreatitis secondary to Gallstones/Choledocholithiasis CT Abdomen - Acute Pancreatitis, Dilated CBD Elevated LFTs (improving), Lipase normalized. MRCP - Gallstone, no CBD dilatation but abrupt cut off - unable to rule out distal CBD stone. s/p ERCP 12/14 - distal stone extraction with stenting POD 3 s/p Cholecystectomy - some elevation in ALT/AST post-op, now trending down , Bili normal. Afebrile. On IV Zosyn. Duration of Abx and timing of ASHLEIGH drain removal as per Surgery. Medically stable for discharge once ASHLEIGH drain is removed and cleared by Surgery. 2. HTN - Continue Lisinopril. 3. Hypokalemia - repleted. DVT Px - SCDs. Lovenox SQ to be resumed post-op at discretion of Surgery if patient is not discharged. GI Px - PPI.
--- NOTE | 2018-12-19 17:22 | DS ---
Physical Exam: SUBJECTIVE: Patient seen and examined. No fevers, no acute events overnight. Pt. has not had BM but is passing gas. OBJECTIVE: Vital Signs Period Temp Pulse Resp BP Sys/Kellogg Pulse Ox Last 24 Hr 98.5 F-99.5 F 54-81 20-20 137-152/73-100 100 PHYSICAL EXAM ENERAL: The patient is awake, alert, and fully oriented, in mild distress. HEAD: Normal with no signs of trauma. EYES: sclera anicteric, conjunctiva clear. No ptosis. ENT: Ears normal, nares patent, oropharynx clear without exudates, moist mucous membranes. NECK: Trachea midline, full range of motion, supple. LUNGS: Decreased breath sounds, clear to auscultation bilaterally, no wheezes, no crackles, no accessory muscle use. HEART: Regular rate and rhythm, S1, S2 without murmur ABDOMEN: Soft, "soreness" to palpation in epigastrium, nondistended, bowel sounds sluggish, drain in place with 50ml serosanguinous fluid. EXTREMITIES: 2+ radial pulses, warm, well-perfused, no calf tenderness, no edema. NEUROLOGICAL: Normal speech, gait not observed. PSYCH: Normal mood, normal affect. SKIN: Warm, dry, normal turgor\\ LABS Laboratory Results - last 24 hr 12/19/18 12/19/18 08:50 08:50 WBC 8.3 RBC 4.26 Hgb 13.0 Hct 38.2 D MCV 89.7 MCH 30.5 MCHC 34.0 RDW 13.4 Plt Count 261 D MPV 7.7 D Absolute Neuts (auto) 5.8 Neutrophils % 70.2 Lymphocytes % 18.0 Monocytes % 9.1 Eosinophils % 2.1 Basophils % 0.6 Nucleated RBC % 0 Sodium 137 Potassium 3.3 L Chloride 106 Carbon Dioxide 24 Anion Gap 7 L BUN 8 Creatinine 0.9 Creat Clearance w eGFR 65.75 Random Glucose 130 H Calcium 8.8 Total Bilirubin 0.7 AST 45 H ALT 101 H Alkaline Phosphatase 224 H Total Protein 6.4 Albumin 2.6 L HOSPITAL COURSE: Date of Admission:12/11/18 Date of Discharge: 12/19/18 Pt. admitted for abdominal pain 2/[address] showed no signs of necrotizing pancreatitis, abscess, or cyst/pseudocyst; incidental findings as detailed below. Pt. had ERCP with stent placement. GI consult appreciated. Pt. was monitored on fluids, IV Abx. and morphine. Surgery consult appreciated for cholecystectomy whereupon the migrated biliary stent was found in the gall bladder. Pt.s home medications were continued. Outpatient follow up and surgical instructions discussed with Pt. and family as detailed below. Hospital course discussed and agreed upon with Pt. family and medical staff. Minutes to complete discharge: 35 Discharge Summary Reason For Visit: PANCREATITIS Current Active Problems Acute pancreatitis (Acute) Common bile duct (CBD) obstruction (Acute) Gallstone pancreatitis (Acute) Condition: Improved - Instructions Diet, Activity, Other Instructions: You came in for Pancreatitis. We removed the stone causing it and your gall bladder. Please resume your home meds as prescribed. Please follow surgical recommendation below. Please follow up with your primary care physician, Dr. Kiran, within 1 week to discuss the trace pericardial effusion found on imaging. If you do not have one we have provided Dr. Ríos for you Please follow up with Gastroenterology, Dr. Birch, within 1 week. Please follow up with your surgeon, Dr. Brice, within 1 week. Please return to the ED if you are having worsening abdominal pain, fevers, chills, inability to pass stool, or any concerning symptoms. Dear RUSSELL VAZQUEZ, Post Operative Instructions Physical activity Resume your normal everyday activity as tolerated no heavy lifting or exercise until seen by your surgeon. You may walk unlimited amounts of and climb stairs. You may resume driving the car when you feel safe and comfortable behind the wheel and are no longer taking narcotic pain medications. Wound care If you have a bandage, leave it on, and keep dry for 48 - 72 hours. After that time discard the outer bandage. If there are tapes on the skin under the outer bandage, leave them in place. They will peel off in the next 7 to 10 days. Do Not peel them off. You may shower 2 days after surgery. If there are tapes present on the skin, they can get wet. When showering allow soap and water to run over the incisions, do not scrub the incisions. Pat dry well afterwards. Do not submerge the incisions (no baths, pools, hot tubs, etc) for 3 weeks. Diet There are no dietary restrictions. Eat healthy, high-fiber foods. Drink 6 to 8 glasses of liquid each day. This will assist in keeping your bowels are regular. Pain management You may take Tylenol or acetaminophen or Ibuprofen (for example, Motrin, Advil etc.) Any pain prescription medication ordered should be taken as prescribed for moderate to severe pain. Do not drive, drink alcohol or operate heavy machinery while taking narcotic pain medications. Call Dr. Valladares for any of the following: Severe pain not relieved by medication Fever of 101 or higher Excessive bleeding or drainage on dressing Inability to urinate Call the office at [phone] for a post operative appointment in 7 days. Referrals: Iain Ríos MD [Staff Physician] - 1 Week Julio Birch DO [Staff Physician] - 1 Week Yan Brice [Staff Physician] - Ashlie Kiran MD [Primary Care Provider] - 1 Week Disposition: HOME - Home Medications Comprehensive Discharge Medication List: Ambulatory Orders Albuterol Sulfate Inhaler - [Ventolin HFA Inhaler -] 2 puff PO Q6H PRN 12/12/18 Lisinopril/Hydrochlorothiazide [Zestoretic 10-12.5 mg Tablet] 1 each PO DAILY This patient is new to me today: No Emergency Visit: Yes ED Registration Date: 12/11/18 Care time: The patient presented to the Emergency Department on the above date and was hospitalized for further evaluation of their emergent condition. Critical Care patient: No - Discharge Referral Referred to [facility].: Yes Physician Referral: Cruz Birch DO (GI)
[2018-12-19 17:59] VITALS: BP 152/103; PULSE 68; TEMP 97.9
--- NOTE | 2018-12-20 18:58 | PATH ---
Surgical Pathology Report Patient Name: RUSSELL VAZQUEZ [facility]. Rec. #: [id number] /Age/Gender: 1965 (Age: 53) / F Account: [id number] Location: [address] [place] [address] Taken: 12/19/2018 Received: 12/19/2018 Reported: 12/20/2018 Physicians: Kobe Vee MD Specimen(s) Received A: GALLBLADDER B: CHOLECYSTOSTOMY TUBE Clinical History Acute cholecystitis Final Diagnosis A. GALLBLADDER, LAPAROSCOPIC CHOLECYSTECTOMY: ACUTE AND CHRONIC CHOLECYSTITIS WITH CHOLESTEROLOSIS. B. BILIARY STENT, REMOVAL: CONSISTENT WITH BILIARY STENT. MACROSCOPIC DIAGNOSIS. Electronically Signed Regina Loco M.D. Gross Description A. Received in formalin, labeled "gallbladder," is a 9.0 x 2.8 x 1.5 cm. gallbladder with a 0.2 cm. in length portion of cystic duct attached. The outer surface is chairez-tidwell and varies from smooth to shaggy. The lumen contains green, tenacious bile. There are no choleliths identified within the lumen or the container. The mucosa is dark green and velvety with gold cholesterol stippling. The wall of the gallbladder measures up to 0.2 cm. in thickness. Upscale Security Officer sections are submitted in one cassette. B. Received fresh labeled "biliary stent," is a 14 cm in length blue, coiled portion of tubing, consistent with a biliary stent. No soft tissue is present. No sections are submitted, gross only. 12/19/201812/19/2018
--- NOTE | 2018-12-23 14:22 | OP ---
DATE OF OPERATION: 12/23/2018 PREOPERATIVE DIAGNOSIS: Acute cholecystitis. POSTOPERATIVE DIAGNOSIS: Acute cholecystitis. PROCEDURE: Laparoscopic cholecystectomy. FINDINGS: Biliary stent was found inside the gallbladder and acute cholecystitis. SURGEON: Yan Brice MD PRODUCTION MAINTENANCE TECHNICIAN: Sandra Alberts ANESTHESIA: General. SPECIMENS: Gallbladder and stent. Patient tolerated the procedure well. ESTIMATED BLOOD LOSS: Approximately 25 mL. HISTORY: This is a 53-year-old female who was admitted with acute cholecystitis and evidence of common bile duct stone for which she underwent a preoperative ERCP with stone removal and placement of a double pigtail stent, which was introduced in the common bile duct. She now is proceeding with laparoscopic cholecystectomy. Risks and benefits have been discussed with the patient extensively. She has agreed to procedure as planned. DESCRIPTION OF PROCEDURE: In the operating room, she was placed in supine position. After induction of general anesthesia, she was prepped and draped in the usual sterile fashion. The procedure was begun with a periumbilical incision performed with scalpel, and a standard Chapa approach was used to enter the peroneal cavity. A 12-mm port was placed at the umbilicus and then pressure of 15 mmHg was accomplished. At this point, three 5-mm ports, 2 in the right upper quadrant, 1 in the epigastric region. The patient was positioned in the reverse Trendelenburg position. Dissection of the gallbladder was then begun by retracting the gallbladder superiorly and laterally exposing the hilar region. There was extensive inflammation of this area and concern for a possible Mirizzi syndrome. For that reason, we decided to then perform a retrograde cholecystectomy. This was done using a hook dissection with cautery to slightly begin to dissect the gallbladder off the liver bed in a returning fashion skeletonizing the gallbladder all the way down to the hilar region. The cystic artery was identified at this point. It was ligated between endo clips. Further dissection of the mesentery was performed in order to finally skeletonize the cystic duct all the way to its entry into the common bile duct. At this point then the stent could be visualized going into the gallbladder itself. The triangle of Calot clearly visualized. The common bile duct was clearly seen both before and after the cystic junction. At this point, the cystic duct was then ligated distally and proximally. It was partially divided and then the stent was removed and then it was ligated with endoclips and then completely divided. The gallbladder was placed in the EndoCatch bag. The right upper quadrant was irrigated with suction. The drain was left in the gallbladder fossa. The ports were removed with the gallbladder. The specimen was examined. The entire stent as well as the gallbladder was examined to make sure there was no ducts or structures associated . The fascia was closed with 0 Vicryl suture. The skin was closed with 4-0 Monocryl at all port sites. The drain was secured in place with 2-0 nylon suture. Sterile dressing was applied and the patient was returned to the recovery room awake and alert in stable condition. She tolerated the procedure well. Kobe [id number]
== END 2018-12-19 18:48 | disposition home or self-care (01) | DRG 418 ==
LOC: JER 11:47 → JERBED 13:40 → J5S 12-12 10:31
PROVIDERS: ADMIT Internal Medicine
PROC: 0FC98ZZ Extirpation of Matter from Common Bile Duct, Via Natural or Artificial Opening Endoscopic (ICD-10-PCS; 2018-12-14)
PROC: 0F798DZ Dilation of Common Bile Duct with Intraluminal Device, Via Natural or Artificial Opening Endoscopic (ICD-10-PCS; 2018-12-14)
PROC: 0FT44ZZ Resection of Gallbladder, Percutaneous Endoscopic Approach (ICD-10-PCS; principal; 2018-12-16 16:30)
DX: K85.10 Biliary acute pancreatitis without necrosis or infection (principal); K80.43 Calculus of bile duct with acute cholecystitis with obstruction; F32.9 Major depressive disorder, single episode, unspecified; I10 Essential (primary) hypertension; R74.0 Nonspecific elevation of levels of transaminase and lactic acid dehydrogenase [LDH]; I45.81 Long QT syndrome; E87.6 Hypokalemia; E83.39 Other disorders of phosphorus metabolism
CPT/HCPCS: 36415; 71046-TC-FY; 74176-TC; 74177-TC; 74181-TC; 74330-TC; 76705-TC; 80053; 80061; 80074; 80076; 81003; 82150; 82248; 83690; 83721; 83735; 84100; 84484; 84703; 85025; 85027; 85610; 85730; 86140; 86705; 86850; 86900; 86901; 87040; 87081; 87086; 88300-TC; 88304-TC; 93005; 93010; 94760; 99284-25; J0131; J7030

== ENCOUNTER 2019-01-31 15:25 | Emergency (ER) | payer OTHER ==
[2019-01-31 15:32] VITALS: TEMP 97.6; BMI 31.4
--- NOTE | 2019-01-31 15:32 | PDOC ---
Rapid Medical Evaluation Chief Complaint: Pain, Acute Time Seen by Provider: 01/31/19 15:26 Medical Evaluation: Allergies Allergy/AdvReac Type Severity Reaction Status Date / Time No Known Allergies Allergy Verified 12/11/18 11:56 01/31/19 15:89 year old female c/o left flank pain since this am send for evaluation by PCP PE; patient alert ox3. + left CVAT A: flank pain P: labs Ua patient to the ER for further management Discharge Disposition - Diagnosis Flank pain, acute - Referrals - Patient Instructions - Post Discharge Activity
[2019-01-31] MEDS ORDERED: ACETAMINOPHEN 1000 MG/100 ML VIAL (NON FORMULARY) IVPB ONE (16:17)
[2019-01-31] MEDS ORDERED: SODIUM CHLORIDE 1,000 ML IV STA (16:17)
--- NOTE | 2019-01-31 16:17 | PDOC ---
History of Present Illness - General Chief Complaint: Pain, Acute Stated Complaint: LOWER BACK PAIN Time Seen by Provider: 01/31/19 15:26 History Source: Patient Exam Limitations: No Limitations - History of Present Illness Initial Comments: 01/31/19 16:55 53 year old female with PMH HTN presented to ED for left flank pain since yesterday. Pt was seen and evaluated by her PCP, who advised her to come to the Emergency Department for evaluation of kidney stone. Pt denied fever, chills, nausea, vomiting, diarrhea, constipation, chest pain, shortness of breath. Pt stated her flank pain is constant, radiating down to her groin, no alleviating or aggravating factors. Allergies: NKDA Past History - Past Medical History Allergies/Adverse Reactions: Allergies Allergy/AdvReac Type Severity Reaction Status Date / Time No Known Allergies Allergy Verified 12/11/18 11:56 Home Medications: Ambulatory Orders Albuterol Sulfate Inhaler - [Ventolin HFA Inhaler -] 2 puff PO Q6H PRN 12/12/18 Lisinopril/Hydrochlorothiazide [Zestoretic 10-12.5 mg Tablet] 1 each PO DAILY COPD: No HTN: Yes Psychiatric Problems: Yes (DEPRESSION) - Surgical History Neurologic Surgery: Yes (X5 BACK SX) - Reproductive History (#): 5 Para: 3 Spontaneous : 1 - Suicide/Smoking/Psychosocial Hx Smoking Status: No Smoking History: Never smoked Have you smoked in the past 12 months: No Number of Cigarettes Smoked Daily: 0 Information on smoking cessation initiated: No Hx Alcohol Use: No Drug/Substance Use Hx: No Substance Use Type: None Review of Systems - Review of Systems Able to Perform ROS?: Yes Comments:: 01/31/19 16:37 General: denied fever, chills, generalized weakness. HEENT: denied sore throat, rhinorrhea, ear pain. Heart: denied chest pain, palpitations, syncope, diaphoresis. Respiratory: denied shortness of breath, cough, sputum production, hemoptysis. Abdomen: denied abdominal pain, nausea, vomiting, diarrhea, constipation, blood in stool. : admitted to flank pain. denied dysuria, increased urinary frequency, hematuria, urinary incontinence. Back: denied back pain. Musculoskeletal: denied joint pain, muscle pain, joint swelling. Neurological: denied headache, dizziness, numbness, tingling, weakness. Skin: denied rash, laceration, abrasion. *Physical Exam - Vital Signs Last Vital Signs Temp Pulse Resp BP Pulse Ox 97.6 F 51 L 20 185/94 H 100 01/31/19 15:27 01/31/19 15:27 01/31/19 15:27 01/31/19 15:27 01/31/19 15:27 - Physical Exam Comments: 01/31/19 16:39 Constitutional: Well-nourished, Well-developed, appearing stated age. HEENT: head is normocephalic, atraumatic. EOMI. PERRLA. Neck: supple. Full ROM. Heart: regular rhythm. no murmurs, rubs or gallops. Lungs: clear to auscultation bilaterally. no crackles, rhonchi or wheezing. no stridor. Abdomen: soft, nontender. normal bowel sounds. no rebound, guarding, masses. Back: no CVA tenderness bilaterally. Extremities: peripheral pulses intact. no lower extremity edema. Neurological: CN 2-12 grossly intact. moves all four extremities. Psych: awake, alert, oriented x3. follows commands. answers questions appropriately. ED Treatment Course - LABORATORY CBC & Chemistry Diagram: 01/31/19 16:26 01/31/19 16:26 Medical Decision Making - Medical Decision Making 01/31/19 16:39 53 year old female with above PMH presented to ED for left sided flank pain since yesterday. Initial Vital Signs Temp Pulse Resp BP Pulse Ox 97.6 F 51 L 20 185/94 H 100 01/31/19 15:27 01/31/19 15:27 01/31/19 15:27 01/31/19 15:27 01/31/19 15:27 Afebrile. Bradycardia. No tachypnea. Hypertensive. No hypoxia on room air. Labs ordered: CBC, CMP, UA/UC Imaging ordered: CT abdomen/pelvis noncontrast Medications ordered: normal saline bolus 1000 cc, tylenol IV 01/31/19 16:50 CBC WBC 5.0 K/mm3 (4.0-10.0) 01/31/19 16:26 RBC 4.62 M/mm3 (3.60-5.2) 01/31/19 16:26 Hgb 14.0 GM/dL (10.7-15.3) 01/31/19 16:26 Hct 42.9 % (32.4-45.2) 01/31/19 16:26 MCV 93.0 fl (80-96) 01/31/19 16:26 MCH 30.4 pg (25.7-33.7) 01/31/19 16:26 MCHC 32.7 g/dl (32.0-36.0) 01/31/19 16:26 RDW 13.6 % (11.6-15.6) 01/31/19 16:26 Plt Count 227 K/MM3 (134-434) 01/31/19 16:26 MPV 7.4 fl (7.5-11.1) L 01/31/19 16:26 Absolute Neuts (auto) 2.4 K/mm3 (1.5-8.0) 01/31/19 16:26 Neutrophils % 48.9 % (42.8-82.8) D 01/31/19 16: Lymphocytes % 39.3 % (8-40) D 01/31/19 16:26 Monocytes % 7.9 % (3.8-10.2) 01/31/19 16:26 Eosinophils % 3.0 % (0-4.5) 01/31/19 16:26 Basophils % 0.9 % (0-2.0) 01/31/19 16: Nucleated RBC % 0 % (0-0) 01/31/19 16:26 No leukocytosis. No anemia. Urine Test Results Urine Color Yellow 01/31/19 16:26 Urine Appearance Cloudy 01/31/19 16:26 Urine pH 5.5 (5.0-8.0) D 01/31/19 16:26 Ur Specific [place] 1.024 (1.010-1.035) 01/31/19 16:26 Urine Protein Negative (NEGATIVE) 01/31/19 16:26 Urine Glucose (UA) Negative (NEGATIVE) 01/31/19 16:26 Urine Ketones Negative (NEGATIVE) 01/31/19 16:26 Urine Blood Negative (NEGATIVE) 01/31/19 16:26 Urine Nitrite Negative (NEGATIVE) 01/31/19 16:26 Urine Bilirubin Negative (NEGATIVE) 01/31/19 16:26 Ur Leukocyte Esterase Negative (NEGATIVE) 01/31/19 16:26 Negative for UTI. 01/31/19 17:02 CMP Sodium 140 mmol/L (136-145) 01/31/19 16:26 Potassium 4.3 mmol/L (3.5-5.1) 01/31/19 16:26 Chloride 107 mmol/L (98-107) 01/31/19 16:26 Carbon Dioxide 27 mmol/L (21-32) 01/31/19 16:26 Anion Gap 5 MMOL/L (8-16) L 01/31/19 16:26 BUN 8 mg/dL (7-18) 01/31/19 16:26 Creatinine 0.8 mg/dL (0.55-1.3) 01/31/19 16:26 Est GFR (CKD-EPI)AfAm 98.24 01/31/19 16:26 Est GFR (CKD-EPI)NonAf 84.76 01/31/19 16:26 Random Glucose 87 mg/dL (74-106) 01/31/19 16:26 Calcium 9.5 mg/dL (8.5-10.1) 01/31/19 16:26 Total Bilirubin 0.6 mg/dL (0.2-1) 01/31/19 16:26 AST 27 U/L (15-37) 01/31/19 16:26 ALT 39 U/L (13-61) 01/31/19 16:26 Alkaline Phosphatase 119 U/L (45-117) H 01/31/19 16:26 Total Protein 7.4 g/dl (6.4-8.2) 01/31/19 16:26 Albumin 3.8 g/dl (3.4-5.0) 01/31/19 16:26 No electrolyte abnormalities. No Yoly. No transaminitis. Medications ordered: Toradol 30 mg IV once 01/31/19 18:46 CT report: Renal stone CT without contrast Clinical information: left flank pain Multiplanar imaging was performed. No intravenous or enteric contrast was administered. No urinary tract calculus or hydroureteronephrosis is identified. In comparison to a previous CT exam of 12/15/2018 note is made of interval cholecystectomy as well as interval resolution of acute pancreatitis. There has also been interval removal of a biliary stent. No gross biliary tract dilatation is seen on the current study. No evidence of pneumoperitoneum, free intraperitoneal fluid or bowel obstruction. The liver, spleen, pancreas, adrenal glands and kidneys demonstrate no discrete noncontrast pathology. There is no aortic aneurysm. No gross lymphadenopathy is identified. There is no obvious lymphadenopathy. No CT evidence of acute appendicitis or diverticulitis. There is no gross noncontrast small bowel abnormality. There is no obvious acute pelvic pathology. The visualized osseous structures demonstrate no gross acute abnormality. Impression: No evidence of urolithiasis or obstructive uropathy. Pt informed of results and need to follow up with PCP. Pt expressed understanding and agreed with plan for care. Pt discharged. *DC/Admit/Observation/Transfer Diagnosis at time of Disposition: Flank pain, acute, Muscle strain - Discharge Dispostion Condition at time of disposition: Stable Decision to Admit order: No - Referrals Referrals: Pattie Kiran DO [Primary Care Provider] - - Patient Instructions Printed Discharge Instructions: DI for Muscle Strain, DI for Flank Pain Additional Instructions: You were seen today for flank pain. Your labs were normal. Your urine analysis was normal. Your Cat-Scan was normal. Take ibuprofen 600 mg every 6-8 hours as needed for pain. Take with food. Buy it over the counter. Follow up with your primary care doctor within 3 days. Your care is not complete until you follow up. Return to the Emergency Department for increasing pain, shortness of breath, chest pain, fever, blood in urine, severe abdominal pain, or any other new, worsening or concerning symptoms. NAMIBIAN TRANSLATION PROVIDED VIA [employer] Te vieron hoy por dolor en el flanco. Tus laboratorios edward normales. Shelby anlisis de orina fue normal. Shelby Cat-Scan fue normal. Hodgen ibuprofeno 600 mg cada 6-8 horas segn sea necesario para el dolor. Sandrita con la comida. Cmprelo en el mostrador. Jyoti un seguimiento con shelby mdico de atencin primaria dentro de los 3 zuluaga. Shelby atencin no est completa hasta que jyoti un seguimiento. Regrese al Departamento de Emergencias para aumentar el dolor, la falta de aliento, el dolor en el pecho, la fiebre, la david en la orina, el dolor abdominal intenso o cualquier otro sntoma nuevo, que empeore o relacionado. Print Language: NAMIBIAN - Post Discharge Activity Forms/Work/School Notes: Back to Work
[2019-01-31 16:40] LABS: BASO % 0.9 % (0-2.0); HEMATOCRIT 42.9 % (32.4-45.2); LYMPH % 39.3 % (8-40); MCH 30.4 pg (25.7-33.7); MCHC 32.7 g/dl (32.0-36.0); MEAN PLT VOLUME 7.4 fl (7.5-11.1); MONO % 7.9 % (3.8-10.2); NEUT % 48.9 % (42.8-82.8); PLATELET COUNT 227 K/MM3 (134-434); RBC 4.62 M/mm3 (3.60-5.2); RDW 13.6 % (11.6-15.6)
[2019-01-31 16:42] LABS: PH,URINE 5.5 (5.0-8.0); URINE APPEARANCE CLOUDY; URINE BILIRUBIN NEGATIVE (NEGATIVE); URINE COLOR YELLOW; URINE GLUCOSE (UA) NEGATIVE (NEGATIVE); URINE KETONE NEGATIVE (NEGATIVE); URINE LEUK ESTERASE NEGATIVE (NEGATIVE); URINE NITRITE NEGATIVE (NEGATIVE); URINE PROTEIN NEGATIVE (NEGATIVE)
[2019-01-31 17:02] LABS: ALBUMIN 3.8 g/dl (3.4-5.0); BILIRUBIN,TOTAL 0.6 mg/dL (0.2-1); CALCIUM 9.5 mg/dL (8.5-10.1); CREATININE 0.8 mg/dL (0.55-1.3); POTASSIUM 4.3 mmol/L (3.5-5.1); TOT PROT 7.4 g/dl (6.4-8.2)
[2019-01-31] MEDS ORDERED: ACETAMINOPHEN INJECTION 100 ML IVPB ONE (17:05)
[2019-01-31] MEDS ORDERED: KETOROLAC TROMETHAMINE 30 MG/1 ML VIAL IVPUSH ONE (18:12)
[2019-01-31] MEDS ORDERED: KETOROLAC TROMETHAMINE 30 MG/1 ML VIAL ONE (18:24)
[2019-01-31 18:59] VITALS: BP 146/78; PULSE 74
--- NOTE | 2019-01-31 19:00 | PDOC ---
Documentation entered by Kevin Smith SCRIBE, acting as scribe for Rupinder Salcedo MD. Rupinder Salcedo MD: This documentation has been prepared by the Sarah tejeda Matthew, SCRIBE, under my direction and personally reviewed by me in its entirety. I confirm that the documentation accurately reflects all work, treatment, procedures, and medical decision making performed by me. Attending Attestation - Resident Resident Name: Mili Douglas - ED Attending Attestation I have performed the following: I have examined & evaluated the patient, The case was reviewed & discussed with the resident, I agree w/resident's findings & plan, Exceptions are as noted - HPI HPI: 01/31/19 17:37 Patient is a 53 year old female with a significant past medical history of HTN, who presents to the ED with complaints of left flank pain that began earlier today. Patient reports experiencing gradual left flank pain that she states wraps around her left flank and radiates towards her left abdomen and down to her leg. She reports going to see her PCP regarding her symptoms, who advised she come into the ED for further evaluation and rule out kidney stone. Denies chest pain, sob. Denies nausea, vomiting. Denies fever, chills. Denies contact with sick individuals, out of state travelling. Denies dysuria, hematuria. Denies constipation, diarrhea. Denies any other symptoms. Allergies: NKDA. Social history: No smoking. No alcohol. No illicit drugs. Surgical history: x5 back surgeries. PMD: Dr. Kiran. - Physicial Exam PE: 01/31/19 17:54 wnwd 53 yo female p/w left sided flank pain that wraps around to her left intercoastal area head ncat neck supple lungs cta b/l cvs [id number] abd no rebound,no guarding skin warm and dry extremities no edema ,no tenderness neuro axox3,ambulatory psych appropriate - Medical Decision Making 01/31/19 18:51 this pt denies any vomiting,fever,chills ,hematuria labs reviewed and unremarkable UA no infection,no blood ct scan abd/pel: no obstructive stones,no hydronephrosis,no acute findings imp flank pain , ? passed stone,muscle strain plan pain meds and d/c home
== END 2019-01-31 18:59 | disposition home or self-care (01) ==
LOC: JER 15:25
PROC: 3E0337Z Introduction of Electrolytic and Water Balance Substance into Peripheral Vein, Percutaneous Approach (ICD-10-PCS; principal; 2019-01-31)
PROC: 3E033NZ Introduction of Analgesics, Hypnotics, Sedatives into Peripheral Vein, Percutaneous Approach (ICD-10-PCS; 2019-01-31)
PROC: 3E0333Z Introduction of Anti-inflammatory into Peripheral Vein, Percutaneous Approach (ICD-10-PCS; 2019-01-31)
DX: R10.32 Left lower quadrant pain (principal); S39.011A Strain of muscle, fascia and tendon of abdomen, initial encounter; X58.XXXA Exposure to other specified factors, initial encounter; Y93.89 Activity, other specified; Y92.89 Other specified places as the place of occurrence of the external cause; Y99.8 Other external cause status
CPT/HCPCS: 36415; 74176-TC; 80053; 81003; 85025; 87086; 96361; 96374; 96375; 99282-25; J0131; J7030

== ENCOUNTER 2020-09-24 09:28 | Emergency (ER) | payer OTHER ==
[2020-09-24 09:39] VITALS: BMI 35.3
[2020-09-24] MEDS ORDERED: amLODIPine BESYLATE 10 MG TABLET (FP) PO ONE (10:30)
[2020-09-24] MEDS ORDERED: amLODIPine BESYLATE 5 MG TABLET (FP) ONE (10:47)
[2020-09-24 12:29] LABS: BASO % 0.9 % (0-2.0); EOS % 3.5 % (0-4.5); HEMATOCRIT 44.5 % (32.4-45.2); HEMOGLOBIN 14.9 GM/dL (10.7-15.3); LYMPH % 41.7 % (8-40); MCH 30.1 pg (25.7-33.7); MCHC 33.6 g/dl (32.0-36.0); MEAN CELL VOLUME 89.6 fl (80-96); MEAN PLT VOLUME 7.7 fl (7.5-11.1); NEUT % 41.9 % (42.8-82.8); PLATELET COUNT 208 K/MM3 (134-434); RBC 4.96 M/mm3 (3.60-5.2); RDW 13.5 % (11.6-15.6); WHITE BLOOD COUNT 4.1 K/mm3 (4.0-10.0)
[2020-09-24 13:04] LABS: ANION GAP 3 MMOL/L (8-16); BLOOD UREA NITROGEN 9.3 mg/dL (7-18); CALCIUM 9.1 mg/dL (8.5-10.1); CHLORIDE 104 mmol/L (98-107); CO2 31 mmol/L (21-32); CREATININE 0.8 mg/dL (0.55-1.3); GLUCOSE,RANDOM 90 mg/dL (74-106); POTASSIUM 3.7 mmol/L (3.5-5.1); SODIUM 137 mmol/L (136-145)
[2020-09-24 16:15] VITALS: BP 153/82; PULSE 68; TEMP 97.9
== END 2020-09-24 16:15 | disposition home or self-care (01) ==
LOC: JER 09:28
DX: R03.0 Elevated blood-pressure reading, without diagnosis of hypertension (principal)
CPT/HCPCS: 36415; 71045-TC-FY; 80048; 82550; 84484; 85025; 93005; 93010; 99285-25

== ENCOUNTER 2023-07-27 17:23 | Inpatient (IN) | payer OTHER ==
[2023-07-27] MEDS ORDERED: ALBUTEROL SO4 2.5/IPRATROPIUM 0.5 INH SOL 3 ML VIAL.NEB. NEB ONE (18:12)
[2023-07-27] MEDS ORDERED: ACETAMINOPHEN 1000 MG/100 ML BAG IVPB ONE (18:37)
[2023-07-27] MEDS ORDERED: ACETAMINOPHEN INJECTION 100 ML IVPB ONE (18:42)
[2023-07-27] MEDS: ALBUTEROL SO4 2.5/IPRATROPIUM 0.5 INH SOL 3 ML VIAL.NEB. NEB SCH ×3 (18:55→19:34)
[2023-07-27 19:19] LABS: BASO % 0.7 % (0-2.0); HEMATOCRIT 48.6 % (32.4-45.2); HEMOGLOBIN 16.4 GM/dL (10.7-15.3); LYMPH % 19.2 % (8-40); MCH 29.7 pg (25.7-33.7); MCHC 33.7 g/dl (32.0-36.0); MEAN CELL VOLUME 87.9 fl (80-96); MEAN PLT VOLUME 8.2 fl (7.5-11.1); MONO % 6.1 % (3.8-10.2); PLATELET COUNT 228 10^3/uL (134-434); RBC 5.53 M/mm3 (3.60-5.2); RDW 13.5 % (11.6-15.6); WHITE BLOOD COUNT 9.2 K/mm3 (4.0-10.0)
[2023-07-27 19:24] LABS: INR 1.03 (0.83-1.09)
[2023-07-27 19:27] LABS: ACTIVATED PTT 34.6 SECONDS (25.2-36.5)
[2023-07-27 19:39] LABS: POTASSIUM 3.4 mmol/L (3.5-5.1)
[2023-07-27] MEDS ORDERED: SODIUM CHLORIDE 0.9% 500 ML INFUS.BAG IV ONE (19:39)
[2023-07-27] MEDS ORDERED: METOCLOPRAMIDE HCL INJECTION 10 MG/2 ML VIAL IVPUSH ONE (19:39)
[2023-07-27 19:43] LABS: ALBUMIN 4.4 g/dl (3.4-5.0); BLOOD UREA NITROGEN 8.2 mg/dL (7-18); CALCIUM 9.6 mg/dL (8.5-10.1)
[2023-07-27 19:46] LABS: CREATININE 1.1 mg/dL (0.55-1.3)
[2023-07-27 19:47] LABS: BILIRUBIN,TOTAL 0.8 mg/dL (0.2-1)
[2023-07-27 19:48] LABS: TOT PROT 8.4 g/dl (6.4-8.2)
[2023-07-27 19:51] LABS: N-TERMINAL BNP 79.3 pg/ml (5-125)
[2023-07-27] MEDS ORDERED: METOCLOPRAMIDE HCL INJECTION 10 MG/2 ML VIAL ONE (20:05)
[2023-07-27] MEDS ORDERED: AZITHROMYCIN 500 MG TABLET PO ONE (23:12)
[2023-07-27] MEDS ORDERED: CEFTRIAXONE 1 GM in DEXTROSE 5%-WATER - 100 ML IVPB ONE (23:12)
[2023-07-27] MEDS ORDERED: AZITHROMYCIN 500 MG TABLET ONE (23:27)
[2023-07-27] MEDS ORDERED: CEFTRIAXONE 1 GM/50 ML BAG ONE (23:28)
[2023-07-28] MEDS ORDERED: methylPREDNISolone NA SUCC 125 MG/2 ML VIAL IVPUSH ONE (00:49)
[2023-07-28] MEDS ORDERED: methylPREDNISolone NA SUCC 125 MG/2 ML VIAL ONE (00:58)
[2023-07-28] MEDS: methylPREDNISolone NA SUCC 40 MG/1 ML VIAL IVPUSH SCH ×3 (08:47→21:44)
[2023-07-28] MEDS: CEFTRIAXONE 1 GM in DEXTROSE 5%-WATER - 50 ML IVPB SCH (09:59)
[2023-07-28] MEDS: HYDROCHLOROTHIAZIDE 25 MG TABLET (FP) PO SCH (09:59)
[2023-07-28] MEDS: amLODIPine BESYLATE 10 MG TABLET (FP) PO SCH (09:59)
[2023-07-28] MEDS: FAMOTIDINE 20 MG TABLET PO SCH (09:59)
[2023-07-28] MEDS ORDERED: AZITHROMYCIN IVPB 500 MG in DEXTROSE 5%-WATER - 250 ML IVPB SCH (10:00)
[2023-07-28 10:13] LABS: PH,URINE 6.5 (5.0-8.0); URINE APPEARANCE CLEAR; URINE BILIRUBIN NEGATIVE (NEGATIVE); URINE COLOR YELLOW; URINE GLUCOSE (UA) NEGATIVE (NEGATIVE); URINE KETONE NEGATIVE (NEGATIVE); URINE LEUK ESTERASE NEGATIVE (NEGATIVE); URINE NITRITE NEGATIVE (NEGATIVE); URINE PROTEIN NEGATIVE (NEGATIVE)
[2023-07-28 11:19] VITALS: BMI 32.8
[2023-07-28] MEDS ORDERED: AZITHROMYCIN IVPB 500 MG/250 ML BAG IVPB SCH (11:20)
[2023-07-28] MEDS: AZITHROMYCIN IVPB 500 MG/250 ML BAG IVPB SCH (11:28)
[2023-07-28] MEDS ORDERED: INSULIN (NOVOLOG) ASPART 100 UNITS/ML 10ML VIAL ONE (11:55)
[2023-07-28] MEDS: INSULIN SLIDING SCALE (NOVOLOG) 1 VIAL SQ SCH ×2 (11:56→17:21)
[2023-07-28] MEDS: ALBUTEROL SO4 2.5/IPRATROPIUM 0.5 INH SOL 3 ML VIAL.NEB. NEB SCH ×2 (15:30→20:35)
[2023-07-28] MEDS: ACETAMINOPHEN 325 MG TABLET (FP) PO PRN (20:30)
[2023-07-28] MEDS: ATORVASTATIN CA 10 MG TABLET (FP) PO SCH (21:44)
[2023-07-28] MEDS: HEPARIN NA (PORCINE) 5,000 UNITS/ML 1ML VIAL SQ SCH (21:44)
[2023-07-29] MEDS: methylPREDNISolone NA SUCC 40 MG/1 ML VIAL IVPUSH SCH ×3 (02:11→17:13)
[2023-07-29] MEDS: INSULIN SLIDING SCALE (NOVOLOG) 1 VIAL SQ SCH ×3 (06:21→17:03)
[2023-07-29 07:08] LABS: HEMATOCRIT 42.9 % (32.4-45.2); HEMOGLOBIN 13.9 GM/dL (10.7-15.3); MCH 29.2 pg (25.7-33.7); MCHC 32.3 g/dl (32.0-36.0); MEAN CELL VOLUME 90.1 fl (80-96); MEAN PLT VOLUME 8.4 fl (7.5-11.1); PLATELET COUNT 246 10^3/uL (134-434); RBC 4.76 M/mm3 (3.60-5.2); RDW 13.5 % (11.6-15.6); WHITE BLOOD COUNT 21.1 K/mm3 (4.0-10.0)
[2023-07-29 07:17] LABS: CALCIUM 9.6 mg/dL (8.5-10.1)
[2023-07-29 07:18] LABS: BLOOD UREA NITROGEN 23.6 mg/dL (7-18)
[2023-07-29 07:21] LABS: CREATININE 1.1 mg/dL (0.55-1.3)
[2023-07-29] MEDS: ALBUTEROL SO4 2.5/IPRATROPIUM 0.5 INH SOL 3 ML VIAL.NEB. NEB SCH ×4 (07:25→20:40)
[2023-07-29] MEDS: CEFTRIAXONE 1 GM in DEXTROSE 5%-WATER - 50 ML IVPB SCH (09:19)
[2023-07-29] MEDS: amLODIPine BESYLATE 10 MG TABLET (FP) PO SCH (09:20)
[2023-07-29] MEDS: FAMOTIDINE 20 MG TABLET PO SCH (09:20)
[2023-07-29] MEDS: HEPARIN NA (PORCINE) 5,000 UNITS/ML 1ML VIAL SQ SCH ×2 (09:20→21:03)
[2023-07-29] MEDS: HYDROCHLOROTHIAZIDE 25 MG TABLET (FP) PO SCH (09:20)
[2023-07-29] MEDS: AZITHROMYCIN IVPB 500 MG/250 ML BAG IVPB SCH (09:21)
[2023-07-29] MEDS: ATORVASTATIN CA 10 MG TABLET (FP) PO SCH (21:02)
[2023-07-29] MEDS: ACETAMINOPHEN 325 MG TABLET (FP) PO PRN (23:41)
[2023-07-30] MEDS: methylPREDNISolone NA SUCC 40 MG/1 ML VIAL IVPUSH SCH ×3 (06:04→17:45)
[2023-07-30] MEDS: INSULIN SLIDING SCALE (NOVOLOG) 1 VIAL SQ SCH ×3 (06:11→17:36)
[2023-07-30 07:33] LABS: HEMATOCRIT 43.3 % (32.4-45.2); HEMOGLOBIN 14.2 GM/dL (10.7-15.3); MCH 29.3 pg (25.7-33.7); MCHC 32.8 g/dl (32.0-36.0); MEAN CELL VOLUME 89.5 fl (80-96); MEAN PLT VOLUME 8.7 fl (7.5-11.1); PLATELET COUNT 282 10^3/uL (134-434); RBC 4.84 M/mm3 (3.60-5.2); RDW 13.5 % (11.6-15.6)
[2023-07-30] MEDS: ALBUTEROL SO4 2.5/IPRATROPIUM 0.5 INH SOL 3 ML VIAL.NEB. NEB SCH ×4 (07:37→20:04)
[2023-07-30 08:54] LABS: POTASSIUM 3.6 mmol/L (3.5-5.1)
[2023-07-30 09:01] LABS: CALCIUM 9.7 mg/dL (8.5-10.1)
[2023-07-30 09:02] LABS: BLOOD UREA NITROGEN 36.9 mg/dL (7-18)
[2023-07-30 09:06] LABS: CREATININE 1.2 mg/dL (0.55-1.3)
[2023-07-30] MEDS: amLODIPine BESYLATE 10 MG TABLET (FP) PO SCH (09:29)
[2023-07-30] MEDS: HEPARIN NA (PORCINE) 5,000 UNITS/ML 1ML VIAL SQ SCH ×2 (09:29→22:37)
[2023-07-30] MEDS: HYDROCHLOROTHIAZIDE 25 MG TABLET (FP) PO SCH (09:29)
[2023-07-30] MEDS: FAMOTIDINE 20 MG TABLET PO SCH (09:29)
[2023-07-30] MEDS: CEFTRIAXONE 1 GM in DEXTROSE 5%-WATER - 50 ML IVPB SCH (09:30)
[2023-07-30] MEDS: AZITHROMYCIN IVPB 500 MG/250 ML BAG IVPB SCH (09:32)
[2023-07-30] MEDS: ATORVASTATIN CA 10 MG TABLET (FP) PO SCH (22:37)
[2023-07-31] MEDS: methylPREDNISolone NA SUCC 40 MG/1 ML VIAL IVPUSH SCH ×3 (03:45→22:38)
[2023-07-31] MEDS: INSULIN SLIDING SCALE (NOVOLOG) 1 VIAL SQ SCH ×3 (06:19→18:14)
[2023-07-31] MEDS: ALBUTEROL SO4 2.5/IPRATROPIUM 0.5 INH SOL 3 ML VIAL.NEB. NEB SCH ×4 (07:45→20:35)
[2023-07-31] MEDS: CEFTRIAXONE 1 GM in DEXTROSE 5%-WATER - 50 ML IVPB SCH (09:25)
[2023-07-31] MEDS: AZITHROMYCIN IVPB 500 MG/250 ML BAG IVPB SCH (09:25)
[2023-07-31] MEDS: amLODIPine BESYLATE 10 MG TABLET (FP) PO SCH (09:25)
[2023-07-31] MEDS: HYDROCHLOROTHIAZIDE 25 MG TABLET (FP) PO SCH (09:25)
[2023-07-31] MEDS: FAMOTIDINE 20 MG TABLET PO SCH (09:25)
[2023-07-31] MEDS: HEPARIN NA (PORCINE) 5,000 UNITS/ML 1ML VIAL SQ SCH ×2 (09:25→22:37)
[2023-07-31] MEDS: ATORVASTATIN CA 10 MG TABLET (FP) PO SCH (22:37)
[2023-08-01] MEDS: INSULIN SLIDING SCALE (NOVOLOG) 1 VIAL SQ SCH ×3 (06:22→17:18)
[2023-08-01] MEDS: ALBUTEROL SO4 2.5/IPRATROPIUM 0.5 INH SOL 3 ML VIAL.NEB. NEB SCH ×4 (07:45→19:25)
[2023-08-01] MEDS: methylPREDNISolone NA SUCC 40 MG/1 ML VIAL IVPUSH SCH ×2 (10:48→21:38)
[2023-08-01] MEDS: HEPARIN NA (PORCINE) 5,000 UNITS/ML 1ML VIAL SQ SCH ×2 (10:48→21:38)
[2023-08-01] MEDS: amLODIPine BESYLATE 10 MG TABLET (FP) PO SCH (10:49)
[2023-08-01] MEDS: FAMOTIDINE 20 MG TABLET PO SCH (10:49)
[2023-08-01] MEDS: AZITHROMYCIN IVPB 500 MG/250 ML BAG IVPB SCH (10:49)
[2023-08-01] MEDS: HYDROCHLOROTHIAZIDE 25 MG TABLET (FP) PO SCH (10:49)
[2023-08-01] MEDS: CEFTRIAXONE 1 GM in DEXTROSE 5%-WATER - 50 ML IVPB SCH (10:49)
[2023-08-01] MEDS: ATORVASTATIN CA 10 MG TABLET (FP) PO SCH (21:38)
[2023-08-02] MEDS: INSULIN SLIDING SCALE (NOVOLOG) 1 VIAL SQ SCH ×3 (06:27→17:10)
[2023-08-02] MEDS: FAMOTIDINE 20 MG TABLET PO SCH (09:43)
[2023-08-02] MEDS: HYDROCHLOROTHIAZIDE 25 MG TABLET (FP) PO SCH (09:43)
[2023-08-02] MEDS: methylPREDNISolone NA SUCC 40 MG/1 ML VIAL IVPUSH SCH (09:43)
[2023-08-02] MEDS: CEFTRIAXONE 1 GM in DEXTROSE 5%-WATER - 50 ML IVPB SCH (09:43)
[2023-08-02] MEDS: HEPARIN NA (PORCINE) 5,000 UNITS/ML 1ML VIAL SQ SCH ×2 (09:43→21:18)
[2023-08-02] MEDS: amLODIPine BESYLATE 10 MG TABLET (FP) PO SCH (09:43)
[2023-08-02] MEDS: AZITHROMYCIN IVPB 500 MG/250 ML BAG IVPB SCH (09:44)
[2023-08-02] MEDS: ALBUTEROL SO4 2.5/IPRATROPIUM 0.5 INH SOL 3 ML VIAL.NEB. NEB SCH ×4 (11:15→20:58)
[2023-08-02 11:35] LABS: POTASSIUM 3.7 mmol/L (3.5-5.1)
[2023-08-02 11:37] LABS: BLOOD UREA NITROGEN 30.9 mg/dL (7-18); CALCIUM 9.2 mg/dL (8.5-10.1); MAGNESIUM 2.3 mg/dL (1.8-2.4)
[2023-08-02 11:40] LABS: CREATININE 0.9 mg/dL (0.55-1.3)
[2023-08-02 11:42] LABS: BILIRUBIN,TOTAL 0.3 mg/dL (0.2-1); TOT PROT 6.6 g/dl (6.4-8.2)
[2023-08-02 11:59] LABS: ALBUMIN 3.2 g/dl (3.4-5.0)
[2023-08-02] MEDS ORDERED: POTASSIUM CHLORIDE ORAL LIQUID 20 MEQ/15 ML PO ONE (15:55)
[2023-08-02] MEDS: ATORVASTATIN CA 10 MG TABLET (FP) PO SCH (21:18)
[2023-08-03] MEDS: INSULIN SLIDING SCALE (NOVOLOG) 1 VIAL SQ SCH ×2 (06:20→12:09)
[2023-08-03] MEDS: ALBUTEROL SO4 2.5/IPRATROPIUM 0.5 INH SOL 3 ML VIAL.NEB. NEB SCH ×2 (07:40→11:05)
[2023-08-03 08:57] VITALS: BP 153/111; PULSE 76; RESP 20; TEMP 97.7
[2023-08-03] MEDS: HYDROCHLOROTHIAZIDE 25 MG TABLET (FP) PO SCH (09:01)
[2023-08-03] MEDS: FAMOTIDINE 20 MG TABLET PO SCH (09:01)
[2023-08-03] MEDS: amLODIPine BESYLATE 10 MG TABLET (FP) PO SCH (09:01)
[2023-08-03] MEDS: HEPARIN NA (PORCINE) 5,000 UNITS/ML 1ML VIAL SQ SCH (09:01)
[2023-08-03] MEDS: CEFTRIAXONE 1 GM in DEXTROSE 5%-WATER - 50 ML IVPB SCH (09:02)
[2023-08-03] MEDS: AZITHROMYCIN IVPB 500 MG/250 ML BAG IVPB SCH (09:02)
[2023-08-03] MEDS ORDERED: methylPREDNISolone NA SUCC 40 MG/1 ML VIAL IVPUSH SCH (10:00)
== END 2023-08-03 12:34 | disposition home or self-care (01) | DRG 193 ==
LOC: JER 17:23 → JERBED 23:24 → J4W 07-28 09:06 → OBSVTOIN 07-28 14:43
PROVIDERS: ADMIT Internal Medicine; ATTEND Family Medicine
DX: J18.9 Pneumonia, unspecified organism (principal); J96.01 Acute respiratory failure with hypoxia; F32.A Depression, unspecified; I10 Essential (primary) hypertension; E78.5 Hyperlipidemia, unspecified; I49.3 Ventricular premature depolarization; J20.9 Acute bronchitis, unspecified
CPT/HCPCS: 0241U-QW; 36415; 71045-TC-FY; 71275-TC; 80048; 80053; 81003; 82962; 83735; 83880; 84484; 85025; 85027; 85610; 85730; 87040; 87086; 87635; 87899; 93005; 93010; 93306-TC; 94010; 94640; 94761; 99285-25; G0378; J1644

== ENCOUNTER 2024-06-09 09:52 | Emergency (ER) | payer OTHER ==
[2024-06-09 09:59] VITALS: BMI 31.7
[2024-06-09] MEDS ORDERED: ACETAMINOPHEN 325 MG TABLET (FP) ONE (10:59)
[2024-06-09] MEDS: ACETAMINOPHEN 500 MG TABLET (FP) PO ONE (11:02)
[2024-06-09 11:03] LABS: HEMATOCRIT 47.2 % (32.4-45.2); HEMOGLOBIN 15.9 GM/dL (10.7-15.3); LYMPH % 36.4 % (8-40); MCH 29.8 pg (25.7-33.7); MCHC 33.8 g/dl (32.0-36.0); MEAN CELL VOLUME 88.3 fl (80-96); MEAN PLT VOLUME 7.9 fl (7.5-11.1); MONO % 7.8 % (3.8-10.2); NEUT % 51.8 % (42.8-82.8); PLATELET COUNT 233 10^3/uL (134-434); RBC 5.35 M/mm3 (3.60-5.2); RDW 13.4 % (11.6-15.6); WHITE BLOOD COUNT 5.6 K/mm3 (4.0-10.0)
[2024-06-09 11:09] LABS: INR 0.88 (0.83-1.09); PROTHROMBIN TIME (PATIENT) 10.2 SEC (9.7-13.0)
[2024-06-09 11:12] LABS: ACTIVATED PTT 36.9 SECONDS (25.2-36.5)
[2024-06-09 11:19] LABS: POTASSIUM 4.4 mmol/L (3.5-5.1)
[2024-06-09 11:22] LABS: CALCIUM 9.8 mg/dL (8.5-10.1)
[2024-06-09 11:23] LABS: ALBUMIN 3.8 g/dl (3.4-5.0); BLOOD UREA NITROGEN 9.5 mg/dL (7-18); MAGNESIUM 2.5 mg/dL (1.8-2.4)
[2024-06-09 11:25] LABS: CREATININE 0.9 mg/dL (0.55-1.3)
[2024-06-09 11:26] LABS: BILIRUBIN,TOTAL 0.6 mg/dL (0.2-1)
[2024-06-09 11:28] LABS: TOT PROT 7.4 g/dl (6.4-8.2)
[2024-06-09 12:42] VITALS: BP 150/91; PULSE 51; RESP 20; TEMP 98.5
== END 2024-06-09 12:42 | disposition home or self-care (01) ==
LOC: JER 09:52
DX: R07.89 Other chest pain (principal); Z20.822 Contact with and (suspected) exposure to COVID-19
CPT/HCPCS: 0241U-QW; 36415; 71046-TC-FY; 80053; 83735; 84484; 85025; 85610; 85730; 86850; 86900; 86901; 93005; 93010; 99285-25